=== PATIENT | female | born 1960 | race Caucasian/White ===

== ENCOUNTER → 2020-10-11 10:53 | Outpatient (BNVA) | payer MEDICARE, MEDICAID, SELFPAY | PROVIDERS: PCP Internal Medicine; Referring Provider Internal Medicine; Visit Provider Student in an Organized Health Care Education/Training Program | DX: Z13.89 Encounter for screening for other disorder (principal) | CPT/HCPCS: Q3014 ==

== ENCOUNTER 2021-02-07 11:03 | Emergency (ER) | payer OTHER, SELFPAY ==
--- NOTE | ~2021-02-07 | XR_ITS ---
EXAMINATION: XR ANKLE, LEFT CLINICAL INFORMATION: Pain and bruising. Twisting injury several days ago. COMPARISON: None TECHNIQUE: AP, lateral, and mortise views of the left ankle. FINDINGS: There is bimalleolar soft tissue swelling both medial and lateral sides. The posterior and medial malleolus appear intact and the ankle mortise is symmetric. There is small ossific fragment at tip lateral malleolus. Although margins appear corticated on the AP view this is not confirmed on the mortise view. Cortical avulsion cannot be excluded. Recommend correlation with patient's symptoms and clinical exam. The talar dome appears normal. The subtalar joint is unremarkable. XR/XR ankle LT min 3V IMPRESSION: 1. Avulsion tip lateral malleolus, possibly acute. Recommend correlation with patient's symptoms and clinical exam. 2. Posterior and medial malleoli are intact. Ankle mortise is symmetric.
[2021-02-07 11:12] VITALS: BP 105/55; PULSE 60; RESP 14; TEMP 37.1; O2SAT 96
--- NOTE | 2021-02-07 12:26 | ED.LOWEXIN ---
HPI - Extremity Injury (Lower) General Chief Complaint: Extremity Injury, Lower <NANCY Watkins - Last Filed: 02/11/21 14:24> Stated Complaint: lt ankle injury - fall <NANCY Watkins - Last Filed: 02/11/21 14:24> Time Seen by Provider: 02/07/21 12:26 <NANCY Watkins - Last Filed: 02/11/21 14:24> History of Present Illness HPI Narrative: Patient tripped and twisted left ankle 4 days ago complains of pain, no numbness weakness or tingling, no other injury <NANCY Watkins Last Filed: 02/11/21 14:24> Related Data Home Medications: Home Medications Medication Instructions Recorded Confirmed calcium carbonate-vitamin D3 600 1 tab PO DAILY 10/11/20 mg (1,500 mg)-800 unit tablet citalopram 20 mg tablet 20 mg PO DAILY 10/11/20 ibuprofen 200 mg tablet 200 mg PO Q6H PRN 10/11/20 lorazepam 1 mg tablet 1 mg PO BEDTIME PRN 10/11/20 magnesium oxide 400 mg PO DAILY 10/11/20 multivitamin 1 tab PO DAILY 10/11/20 lorazepam 0.5 mg tablet 0.5 mg PO BEDTIME PRN 02/15/21 Previous Rx's Medication Instructions Recorded diclofenac sodium 1 % topical gel 2 g TOPICAL BID #100 g 10/11/20 <NANCY Watkins - Last Filed: 02/11/21 14:24> Allergies/Adverse Reactions: Allergies Allergy/AdvReac Type Severity Reaction Status Date / Time No Known Allergies Allergy Verified 02/15/21 09:09 [No Known Allergies*] <NANCY Watkins - Last Filed: 02/11/21 14:24> Review of Systems Review of Systems: Positive for left ankle pain Negatives are no dizziness no weakness no headache no chest pain no fainting no abdominal pain no numbness weakness or tingling <NANCY Watkins Last Filed: 02/11/21 14:24> Yes all other systems are reviewed and are negative <NANCY Watkins Last Filed: 02/11/21 14:24> PMFSH Past Medical History Source: nursing notes reviewed <NANCY Watkins Last Filed: 02/11/21 14:24> Medical History: Medical History Polyarthralgia <NANCY Watkins - Last Filed: 02/11/21 14:24> Social History Social History: Social History (Updated 02/15/21 @ 09:11 by Donna Cunningham) Alcohol intake: never Current occupational status: employed 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 <NANCY Watkins - Last Filed: 02/11/21 14:24> Physical Exam Vital Signs: Vital Signs: Last Vital Signs Temp 98.7 F 02/07/21 11:12 Pulse 60 02/07/21 11:12 Resp 14 02/07/21 11:12 BP 105/55 L 02/07/21 11:12 Pulse Ox 96 02/07/21 11:12 Body Mass Index 0.2 <NANCY Watkins - Last Filed: 02/11/21 14:24> Vital Signs: Last Vital Signs Temp 98.7 F 02/07/21 11:12 Pulse 60 02/07/21 11:12 Resp 14 02/07/21 11:12 BP 105/55 L 02/07/21 11:12 Pulse Ox 96 02/07/21 11:12 Body Mass Index 0.2 <Leobardo Soto MD - Last Filed: 03/12/21 06:25> General appearance no acute distress Head is normocephalic atraumatic The neck is supple and nontender Respiratory no distress Back has full range of motion Extremities the left ankle has lateral malleolus tenderness swelling and some ecchymosis, there is l limited range of motion due to pain, neurovascular intact distal, skin is intact Other extremities normal Skin no rash Neuro no gross motor or sensory deficit <NANCY Watkins - Last Filed: 02/11/21 14:24> Course Course Course Narrative: X-ray showed avulsion from the tip of the lateral malleolus, no other fracture seen Patient is given a walking boot recommended to follow with Orthopedics and is discharged <NANCY Watkins - Last Filed: 02/11/21 14:24> I have reviewed the chart <Leobardo Soto MD - Last Filed: 03/12/21 06:25> Discharge Plan Discharge Clinical Impression: Left ankle sprain, Avulsion fracture of left ankle <NANCY Watkins - Last Filed: 02/11/21 14:24> Patient Disposition: Home, Self-Care <NANCY Watkins - Last Filed: 02/11/21 14:24> Additional Instructions: X-ray showed a small avulsion fracture which is not usually serious, it is usually similar to a sprained ankle Follow with orthopedist, walking as tolerated Return any concerns <NANCY Watkins - Last Filed: 02/11/21 14:24> Prescriptions: No Action lorazepam 1 mg tablet 1 mg PO BEDTIME PRNRF: 0 calcium carbonate-vitamin D3 [Caltrate with Vitamin D3] 600 mg(1,500mg) -800 unit tablet 1 tab PO DAILY RF: 0 citalopram 20 mg tablet 20 mg PO DAILY RF: 0 ibuprofen [Advil] 200 mg tablet 200 mg PO Q6H PRNRF: 0 multivitamin Tablet 1 tab PO DAILY RF: 0 magnesium oxide 400 mg magnesium tablet 400 mg PO DAILY RF: 0 diclofenac sodium [Voltaren] 1 % gel 2 g topical BID Qty: 100 RF: 2 <NANCY Watkins - Last Filed: 02/11/21 14:24> Referrals: Quique Jade MD [Physician] - 2 days (Ankle sprain and avulsion fracture) <NANCY Watkins - Last Filed: 02/11/21 14:24> Interventions: ED Discharge Assessment Last Done: 02/07/21 12:36 <NANCY Watkins - Last Filed: 02/11/21 14:24> Discharge Date/Time: 02/07/21 12:39 <NANCY Watkins - Last Filed: 02/11/21 14:24>
== END 2021-02-07 12:39 | disposition home or self-care (01) ==
PROVIDERS: Emergency Provider Emergency Medicine; PCP Internal Medicine
DX: S93.402A Sprain of unspecified ligament of left ankle, initial encounter (principal); S82.65XA Nondisplaced fracture of lateral malleolus of left fibula, initial encounter for closed fracture; X50.1XXA Overexertion from prolonged static or awkward postures, initial encounter; Y93.9 Activity, unspecified; Y92.9 Unspecified place or not applicable; Y99.9 Unspecified external cause status
CPT/HCPCS: 73610; 99283; 99284

== ENCOUNTER → 2021-02-15 08:59 | Outpatient (BNVA) | payer OTHER, SELFPAY | PROVIDERS: Visit Provider Physician Assistant | DX: S82.899A Other fracture of unspecified lower leg, initial encounter for closed fracture (principal) | CPT/HCPCS: 99202 ==

== ENCOUNTER 2021-02-15 10:23 | Outpatient (REF) | payer OTHER, SELFPAY ==
[2021-02-15 14:25] LABS: Rheumatoid Factor < 15.0 IU/mL (<15.0)
[2021-02-15 14:47] LABS: Erythrocyte Sedimentation Rate 8 MM/HR (0-20)
[2021-02-16 05:26] LABS: Lyme Abs Screen <0.90 index
[2021-02-16 08:23] LABS: Syphilis Screen Nonreactive (Nonreactive)
[2021-02-16 13:56] LABS: Anti Nuclear Antibody Screen NEGATIVE (NEGATIVE)
== END 2021-02-15 10:24 | disposition home or self-care (01) ==
LOC: HO.10HDL 10:23
PROVIDERS: Visit Provider Psychiatry & Neurology Neurology
DX: G93.40 Encephalopathy, unspecified (principal)
CPT/HCPCS: 36415; 85652; 86038; 86039; 86431; 86617; 86618; 86780

== ENCOUNTER 2021-05-08 11:00 | Outpatient (RCR) | payer OTHER, SELFPAY ==
--- NOTE | 2021-03-07 14:43 | MHC.PT.EP ---
[facility] [place] Office [place] Office [place] Office [address] [place] [address] [phone] F: [phone] F: [phone] F: [phone] F: [phone] Physical Therapy Plan of Care Date of Evaluation: Date of Surgery: Diagnosis: AVULSION FRACTURE LEFT LAT MALLEOLUS/ DISTAL FIBULA Assessment: 60 YO FEMALE SUSTAINED A LEFT DISTAL FIBULAR AVULSION FX 02/03/21 S/P FALLING ON THE EDGE OF A HOLE WHILE WALKING OUTDOORS- SHE INITIALLY WAS PLACED IN A LEFT CAM WALKING BOOT W WALKER AND WAS TRANSITIONED TO A LACE-UP ANKLE SUPPORT AND REF TO PT FROM ORTHO, FOR ROM AND PROPRIOCEPTION. Pt HAS LIMITED LEFT ANKLE / HIP ROM, (+) LAT MALL SWELLING, DECR STRENGTH, (+) PELVIC ASYMM, AND PAIN IN LEFT LAT MALL. FUNCTIONALLY, Pt HAS MODIFIED GAIT MECH DUE TO LEFT ANKLE DEFICITS ON LEVEL GROUND AND STAIRS- SHE HAS DIFFIC W HOUSECHORES AND PROLONGED STANDING AND SQUATTING. Pt IS A GOOD PT CANDIDATE. Frequency and Duration: The patient will be seen 2x WK x 5 WKS Short Term Goals: Pt DEMON WFL GAIT MECH ON LEVEL GROUND AND STAIRS IN 3 WKS Pt'S LEFT ANKLE PAIN DECR TO 2-3/10 IN 2 WKS Pt DEMON WFL AROM IN LEFT ANKLE AND RIGHT HIP/ HS-> WFL SYMMETRY IN PELVIS IN 3 WKS Electroplater Helper Goals: Pt INDEP W SELF-SX MGMT AND HEP PROGR IN 5 WKS Pt RESUME FITNESS WALKS AND REG ADLs EVIDENT W IMPROVED LEFT SCORE BY 10 POINTS (25/80 AT EVAL) IN 5 WKS Pt DEMON LEFT LE SLS x 10 SEC AND WFL FUNCT SQUAT TO THE FLOOR IN 5 WKS Treatment Plan: Modalities to reduce pain, spasms and effusion. Manual therapy to restore motion and function. Therapeutic exercise to improve strength and flexibility. Neuromuscular re-education for posture and balance. Therapeutic activities to return to functional activities of daily living. Electronically signed by: Medina Cabrera,PT Please sign and return to therapist. Thank you for your referral.
--- NOTE | 2021-07-25 09:46 | MHC.PT.DC ---
[facility] [place] Office [place] Office [place] Office [address] [place] [address] [facility] [phone] F: [phone] F: [phone] F: [phone] F: [phone] Physical Therapy Discharge Report Diagnosis: AVULSION FRACTURE LEFT LAT MALLEOLUS/ DISTAL FIBULA Date of Surgery: Date of Evaluation: 03/07/21 Date of Discharge: 05/26/21 Treatments to Date: 15 Cancellations to Date: 0 No Shows to Date: 0 Discharge Status: Discharge Summary: Pt ankle mobility WNL, c/o pain with resistance at end ranges. Pt I with HEP. LEFS 38/80. Pt DC with program Electronically signed by: Salvador Ospina PT Please sign and return to therapist. Thank you for your referral.
== END 2021-05-26 08:50 | disposition home or self-care (01) ==
LOC: HO.PTCHIC 11:00
PROVIDERS: PCP Internal Medicine; Visit Provider Physician Assistant
DX: S82.892A Other fracture of left lower leg, initial encounter for closed fracture (principal); S82.62XA Displaced fracture of lateral malleolus of left fibula, initial encounter for closed fracture
CPT/HCPCS: 97014; 97110; 97112; 97116; 97140; 97161

== ENCOUNTER → 2021-05-10 10:56 | Outpatient (BNVA) | payer OTHER, SELFPAY | PROVIDERS: PCP Internal Medicine; Visit Provider Student in an Organized Health Care Education/Training Program | DX: M79.641 Pain in right hand (principal); M79.642 Pain in left hand | CPT/HCPCS: 99212 ==

== ENCOUNTER 2021-07-14 08:02 | Outpatient (REF) | payer OTHER, SELFPAY ==
[2021-07-14 08:20] LABS: MANUAL DIFF FLAG NO
[2021-07-14 08:54] LABS: Basophils Absolute Auto 0.1 X10*3/uL (0.0-0.2); Basophils Percent Auto 0.7 % (0-2); Eosinophils Absolute Auto 0.2 X10*3/uL (0.0-0.4); Eosinophils Percent Auto 2.4 % (0-4); Hematocrit 43.8 % (37-47); Imm Gran Abs Auto 0.02 X10*3/uL (0.00-0.03); Imm Gran Pct Auto 0.3 % (0.0-0.4); Lymphocytes Absolute Auto 3.2 X10*3/uL (1.2-4.9); Lymphocytes Percent Auto 42.7 % (20-40); Mean Corpuscular Hemoglobin 26.9 pg (27.0-33.0); Mean Corpuscular Volume 84.1 fL (80-98); Mean Platelet Volume 10.3 fL (9.4-12.3); Monocytes Absolute Auto 0.6 X10*3/uL (0.1-1.2); Monocytes Percent Auto 7.4 % (2-11); Neutrophils Absolute Auto 3.5 X10*3/uL (2.0-8.3); Neutrophils Percent Auto 46.5 % (45-73); Platelet Count 217 X10*3/uL (160-400); Red Blood Count 5.21 X10*6/uL (4.20-5.50); Red Cell Distribution Width 13.5 % (11.0-16.0); White Blood Count 7.6 X10*3/uL (4.8-10.8)
[2021-07-14 09:15] LABS: Alanine Aminotransferase 22 U/L (0-31); Albumin Level 4.1 g/dL (3.5-5.0); Alkaline Phosphatase 74 U/L (39-117); Anion Gap 13 (12-20); Aspartate Amino Transferase 21 U/L (5-31); Blood Urea Nitrogen 21 mg/dL (9-16); Calcium 9.7 mg/dL (8.4-10.2); Carbon Dioxide 26 mmol/L (22-29); Chloride 107 mmol/L (96-108); Cholesterol 219 mg/dL; Estimated Glomerular Filt Rate 46; Glucose Fasting 107 mg/dL (60-99); HDL Cholesterol 42 mg/dL; LDL Cholesterol Calculated 134 mg/dl; Potassium 4.6 mmol/L (3.3-5.1); Sodium 141 mmol/L (135-145); Total Protein 7.2 g/dL (6.5-8.0); Triglycerides 216 mg/dL
[2021-07-14 09:36] LABS: Thyroid Stimulating Hormone 0.76 uIU/mL (0.32-4.0)
== END 2021-07-14 08:03 | disposition home or self-care (01) ==
LOC: HO.LAB 08:02
PROVIDERS: PCP Internal Medicine; Visit Provider Internal Medicine
DX: Z00.00 Encounter for general adult medical examination without abnormal findings (principal); E11.9 Type 2 diabetes mellitus without complications; E03.9 Hypothyroidism, unspecified
CPT/HCPCS: 36415; 80053; 80061; 84443; 85025

== ENCOUNTER 2022-01-11 13:37 | Outpatient (REF) | payer OTHER, SELFPAY ==
--- NOTE | ~2022-01-11 | MM_ITS ---
EXAMINATION: MM SCREENING DIGITAL BREAST TOMOSYNTHESIS, BILATERAL CLINICAL INFORMATION: Screening. Asymptomatic. The lifetime risk of breast cancer based on the Tyrer-Cuzick Model is 6%. COMPARISON: Mammography: 07/02/2019, 06/19/2018, 02/28/2017 TECHNIQUE: Digital breast tomosynthesis is performed in both the craniocaudal and mediolateral oblique views along with computer-aided detection (CAD). Synthesized 2D images are generated from the tomosynthesis. Additional right CC view is provided. FINDINGS: There are scattered areas of fibroglandular density (ACR BI-RADS breast composition Category b). There are no significant masses, abnormal calcifications, or other abnormalities. No developing density. There are 2 stable nodules right breast posterior 12:00 and posterior upper outer quadrant, respectively. The axilla are unremarkable. There is small dermal lesion posterior inferior right breast. MM/MM tomosynthesis screening BI IMPRESSION: No mammographic evidence of malignancy. ASSESSMENT: BI-RADS 2: Benign RECOMMENDATION: Routine annual mammography screening. This patient's information was entered into a reminder system with a target due date for their next mammogram.
== END 2022-01-11 13:38 | disposition home or self-care (01) ==
LOC: HO.MAMMO 13:37
PROVIDERS: Visit Provider Internal Medicine
DX: Z12.31 Encounter for screening mammogram for malignant neoplasm of breast (principal)
CPT/HCPCS: 77063; 77067

== ENCOUNTER 2022-03-29 11:48 | Outpatient (REF) | payer OTHER, SELFPAY ==
--- NOTE | ~2022-03-29 | XR_ITS ---
EXAMINATION: XR STERNOCLAVICULAR JOINTS CLINICAL INFORMATION: Pain shoulder COMPARISON: Chest radiographs 10/10/2015 TECHNIQUE: AP and oblique views of the sternoclavicular joints. FINDINGS: There is normal bony mineralization. No visible arthropathy on plain film involving the sternoclavicular joints. No subchondral sclerosis or cortical thickening or erosive change. The lung apices are clear. XR/XR sternoclavicular joint BI IMPRESSION: Unremarkable bilateral sternoclavicular joints on plain film.
--- NOTE | ~2022-03-29 | XR_ITS ---
EXAMINATION: XR LUMBOSACRAL SPINE CLINICAL INFORMATION: M54.50 - Low back pain, unspecified COMPARISON: Lumbar spine radiographs 01/18/2012 TECHNIQUE: Three views of the lumbosacral spine. FINDINGS: There is normal lumbar segmentation with 5 nonrib-bearing lumbar vertebrae of normal height and normal lumbar lordosis. No lumbar vertebral compression or destructive process. There is mild disc narrowing and facet degeneration L4-L5. There is a borderline grade 0-1 spondylolisthesis at L4-L5 likely related to the degenerative changes. The SI joints and visualized sacrum are unremarkable. XR/XR lumbar spine 2-3V IMPRESSION: -Degenerative disc and degenerative facet changes L4-L5 with borderline grade 0-1 spondylolisthesis. -No vertebral compression or destructive process.
[2022-03-29 12:00] LABS: MANUAL DIFF FLAG NO
[2022-03-29 12:08] LABS: Basophils Absolute Auto 0.1 X10*3/uL (0.0-0.2); Basophils Percent Auto 0.6 % (0-2); Eosinophils Absolute Auto 0.2 X10*3/uL (0.0-0.4); Eosinophils Percent Auto 1.8 % (0-4); Hemoglobin 13.7 g/dl (12.0-16.0); Imm Gran Abs Auto 0.02 X10*3/uL (0.00-0.03); Imm Gran Pct Auto 0.2 % (0.0-0.4); Lymphocytes Absolute Auto 3.3 X10*3/uL (1.2-4.9); Lymphocytes Percent Auto 39.2 % (20-40); Mean Corpuscular HGB Conc 31.9 g/dl (31.0-35.0); Mean Corpuscular Volume 84.8 fL (80.0-98.0); Mean Platelet Volume 9.7 fL (9.4-12.3); Monocytes Absolute Auto 0.7 X10*3/uL (0.1-1.2); Monocytes Percent Auto 7.8 % (2-11); Neutrophils Absolute Auto 4.3 x10*3/uL (2.0-8.3); Neutrophils Percent Auto 50.4 % (45-73); Platelet Count 213 X10*3/uL (160-400); Red Blood Count 5.07 X10*6/uL (4.20-5.50); Red Cell Distribution Width 13.9 % (11.0-16.0); White Blood Count 8.5 X10*3/uL (4.8-10.8)
[2022-03-29 13:06] LABS: Erythrocyte Sedimentation Rate 6 MM/HR (0-20)
[2022-03-29 13:18] LABS: Alanine Aminotransferase 21 U/L (0-31); Albumin Level 4.2 g/dL (3.5-5.0); Alkaline Phosphatase 70 U/L (39-117); Anion Gap 9 (12-20); Aspartate Amino Transferase 21 U/L (5-31); Bilirubin Total 1.2 mg/dL (0.0-1.0); Blood Urea Nitrogen 18 mg/dL (9-16); C Reactive Protein 0.46 mg/dL (< or = 0.50); Calcium 9.9 mg/dL (8.4-10.2); Carbon Dioxide 28 mmol/L (22-29); Chloride 108 mmol/L (96-108); Estimated Glomerular Filt Rate 47; Glucose Random 92 mg/dL (60-115); Potassium 4.1 mmol/L (3.3-5.1); Sodium 141 mmol/L (135-145); Total Protein 7.2 g/dL (6.5-8.0)
[2022-04-01 15:46] LABS: Cyclic Citrullinated Peptide <16 UNITS
== END 2022-03-29 11:49 | disposition home or self-care (01) ==
LOC: HO.LAB 11:48
PROVIDERS: PCP Internal Medicine; Visit Provider Nurse Practitioner Family
DX: M54.50 Low back pain, unspecified (principal); M19.90 Unspecified osteoarthritis, unspecified site; M25.512 Pain in left shoulder; Z79.899 Other long term (current) drug therapy
CPT/HCPCS: 36415; 71130; 72100; 80053; 85025; 85652; 86140; 86200; 99212

== ENCOUNTER 2022-09-13 11:00 | Outpatient (RCR) | payer OTHER, SELFPAY ==
--- NOTE | 2022-08-09 14:00 | MHC.PT.EP ---
[facility] [place] Office [place] Office [place] Office [address] [place] [address] [phone] F: [phone] F: [phone] F: [phone] F: [phone] Physical Therapy Plan of Care Date of Evaluation: Date of Surgery: NA Diagnosis: Dorsalgia Assessment: Esther is a 62 year old female who is referred to PT for dorsalgia . She presented today with complaints of LBP. She reports of having pain for over 10 years however it has been getting worse. She denies having any falls or trauma. On PT examination she reported of having constant pain which gets worse with sitting, standing and walking, TTP over B SI and B glute, decreased lumbar ROM, decreased B hip ROM, decreased strength, altered posture, and gait. Due to these impairments she has pain with ADLS and needs help with cleaning, cooking, bending and lifting. 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 She would benefit from skilled PT to address the aforementioned impairments and improve tolerance to functional activities. Frequency and Duration: The patient will be seen 2/week for 5 weeks Short Term Goals: 1. Pt will have 50 % decrease in pain which will help her sleep through the night in 2 weeks. 2. Pt will be able to move trunk through all planes of motion without pain which will help her dress her lower body without pain in 3 weeks Relay Record Clerk Goals: 1. Pt will demonstrate an increase in muscle strength by 1 grade which will enable her to tolerate sitting, standing >1 and walking without pain in 5 weeks. 2. Pt will be independent with [facility] for symptom management and maintenance following d/c in 5 weeks. Treatment Plan: Modalities to reduce pain, spasms and effusion. Manual therapy to restore motion and function. Therapeutic exercise to improve strength and flexibility. Neuromuscular re-education for posture and balance. Therapeutic activities to return to functional activities of daily living. Electronically signed by: Shy Samano PT DPT Please sign and return to therapist. Thank you for your referral.
--- NOTE | 2022-10-15 10:50 | MHC.PT.DC ---
[facility] [place] Office [place] Office [place] Office [address] [place] [address] [phone] F: [phone] F: [phone] F: [phone] F: [phone] Physical Therapy Discharge Report Diagnosis: Dorsalgia Date of Surgery: NA Date of Evaluation: 08/09/22 Date of Discharge: 10/15/22 Treatments to Date: 9 Cancellations to Date: 0 No Shows to Date: 0 Discharge Status: Achieved Goals Improved Function Independent with HEP Discharge Summary: Esther completed 9 PT visits and made significant improvements. She is independent with all HEP and achieved all goals set for her. She is therefore being d/c from PT. Electronically signed by: Shy Samano, PT DPT Please sign and return to therapist. Thank you for your referral.
== END 2022-10-15 10:51 | disposition home or self-care (01) ==
LOC: HO.PT 11:00
PROVIDERS: PCP Internal Medicine; Visit Provider Internal Medicine
DX: M54.9 Dorsalgia, unspecified (principal)
CPT/HCPCS: 97110; 97112; 97140; 97161

== ENCOUNTER 2023-01-17 10:18 | Outpatient (REF) | payer OTHER, SELFPAY ==
--- NOTE | ~2023-01-17 | MM_ITS ---
EXAMINATION: MM SCREENING DIGITAL BREAST TOMOSYNTHESIS, BILATERAL CLINICAL INFORMATION: Screening. Asymptomatic. The lifetime risk of breast cancer based on the Tyrer-Cuzick Model is 5.4%. COMPARISON: Mammography: January 11, 2022 and studies dating back to November 24, 2015 TECHNIQUE: Digital breast tomosynthesis is performed in both the craniocaudal and mediolateral oblique views along with computer-aided detection (CAD). Synthesized 2D images are generated from the tomosynthesis. FINDINGS: There are scattered areas of fibroglandular density (ACR BI-RADS breast composition Category b). There are no significant masses, abnormal calcifications, or other abnormalities. MM/MM tomosynthesis screening BI IMPRESSION: No significant changes from prior exam. ASSESSMENT: BI-RADS 1: Negative RECOMMENDATION: Routine annual mammography screening. This patient's information was entered into a reminder system with a target due date for their next mammogram.
== END 2023-01-17 10:19 | disposition home or self-care (01) ==
LOC: HO.MAMMO 10:18
PROVIDERS: PCP Internal Medicine; Visit Provider Internal Medicine
DX: Z12.31 Encounter for screening mammogram for malignant neoplasm of breast (principal)
CPT/HCPCS: 77063; 77067

== ENCOUNTER 2023-02-21 09:54 | Day surgery (SDC) | payer OTHER, SELFPAY ==
--- NOTE | 2023-02-20 14:30 | HO.ANESPROP2 ---
HPI - Anesthesia Eval Consult details Narrative: 62yo F for Upper Endoscopy and Colonoscopy [facility] Active Problems Active Problems: All Active Problems (Updated 02/20/23 @ 13:12 by Dottie Ngo RN) Right lateral epicondylitis (Acute) Avulsion fracture of ankle (Acute) Lateral malleolar fracture (Acute) Bilateral hand pain (Acute) Physical exam (Acute) Back pain (Acute) Cough (Acute) Fibromyalgia (Acute) Polyarthralgia (Acute) Past Medical History Medical History (Updated 02/20/23 @ 13:12 by Dottie Ngo RN) Anxiety White esophagus Depression GERD (gastroesophageal reflux disease) IBS (irritable bowel syndrome) Polyarthralgia Family History Family History Mother No problems noted. Father No problems noted. 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: No Hearing needs: No Vision needs: Yes Meds Allergies Allergy/AdvReac Type Severity Reaction Status Date / Time No Known Allergies Allergy Verified 02/26/23 14:48 [No Known Allergies*] Home Medications Medication Instructions Recorded Confirmed Last Taken Type calcium carbonate 600 mg-vitamin 1 tab PO DAILY 10/11/20 02/21/23 Unknown History D3 20 mcg (800 unit) tablet (Caltrate with Vitamin D3) lorazepam 1 mg tablet 1 mg PO BEDTIME PRN Sleep 10/11/20 02/21/23 Unknown History magnesium oxide 400 mg PO DAILY 10/11/20 02/21/23 Unknown History multivitamin 1 tab PO DAILY 10/11/20 02/21/23 Unknown History dicyclomine 10 mg capsule 10 - 20 mg PO QID PRN cramps 07/11/21 02/21/23 Unknown History duloxetine 20 mg capsule,delayed 20 mg PO BID 08/23/22 02/21/23 Unknown History release duloxetine 60 mg capsule,delayed 60 mg PO DAILY 02/26/23 Unknown History release Exam Exam Date and Time: February 20, 2023 143 Assessment and Plan Assessment Anesthesia Assessment: Chart Reviewed
[2023-02-21] VITALS (9 sets, daily range): BP systolic 107–129; BP diastolic 46–63; PULSE 40–55; RESP 14–18; TEMP 35.9–36.8; O2SAT 97–100; BMI 25.0
[2023-02-21] MEDS: Lactated Ringers 1,000 ML 100 ML IVCONT (10:39)
--- NOTE | 2023-02-21 12:28 | P.BOP_ITS ---
Brief Operative Note Date of Service: 02/21/23 Pre-op diagnosis: White's, Screening Post-op diagnosis: other (Hiatal hernia, Polyps) Procedure: EGD with biopsies, Colonoscopy to the cecum and TI with cold snare polypectomy of TC polyp but not recovered ,and bx/removal of polyp Surgeon: Remberto Marte Anesthesia: MAC Was an Telephone Lines Repairer used for this Procedure?: No Estimated blood loss (mL): 2.0 Pathology: other (A. EG Junction at 35cm B. Polyp at 60cm) Condition: stable Disposition: PACU
--- NOTE | 2023-02-21 12:58 | OP_ITS ---
DATE OF SERVICE: 02/21/2023 SURGEON: Remberto Marte MD INDICATIONS: The patient presents for evaluation of gastroesophageal reflux, White's esophagus, personal history of tubular adenoma of the colon, and colorectal cancer screening. Full consent has been obtained from her for both procedures, including risks of bleeding and perforation. PREOPERATIVE DIAGNOSIS: POSTOPERATIVE DIAGNOSIS: PROCEDURE PERFORMED: ESTIMATED BLOOD LOSS: COMPLICATIONS: ANESTHESIA: Monitored anesthesia care. ASSISTANTS: SPECIMENS: PROCEDURE: Esophagogastroduodenoscopy with biopsies, and colonoscopy to the cecum and terminal ileum with biopsy and removal of polyp, and cold snare polypectomy. PREOPERATIVE DIAGNOSES: Gastroesophageal reflux, White's esophagus, personal history of tubular adenoma of the colon. POSTOPERATIVE DIAGNOSES: Gastroesophageal reflux, White's esophagus, personal history of tubular adenoma of the colon, hiatal hernia, colon polyps, diverticulosis, and internal hemorrhoids. DESCRIPTION OF PROCEDURE: The patient was placed in the left lateral decubitus position. The Olympus video gastroscope was passed in the posterior oropharynx and upper esophagus under direct vision. The scope was passed slowly to the distal esophagus. The gastroesophageal junction appeared at 35 cm. There was some minimal areas of irregularity, consistent with reflux and possibly small areas of White's mucosa. There was no esophagitis nor any lesions. The scope entered the stomach. There was a small hiatal hernia. The scope was advanced to the pylorus and the duodenum was cannulated to the descending portion. The duodenum including the bulb appeared normal without mass or ulceration. The scope was withdrawn back in the stomach. The gastric antrum and body appeared normal with good peristalsis. The scope was retroflexed visualizing the proximal stomach carefully which appeared normal, without any sign of mass or ulceration. The scope was straightened and withdrawn back to the esophagus. Biopsies were obtained at the EG junction at 35 cm. Proximal to this, the esophageal mucosa appeared normal. The scope was withdrawn from the patient. She was turned around for colonoscopy. The digital rectal exam revealed no abnormalities. The Olympus video pediatric colonoscope was entered into the rectum, advanced easily to the cecum. Once in the cecum, I did identify normal-appearing cecal pouch with appendiceal orifice and a normal-appearing ileocecal valve. The terminal ileum was cannulated and appeared normal. The scope was withdrawn back in the colon. The entire cecum and ileocecal valve appeared normal. The scope was then slowly withdrawn assessing all mucosal surfaces carefully. Preparation was excellent. In the proximal transverse colon was an approximately 5 or 6 mm polyp, which was removed by cold snare polypectomy, but not recovered. The polypectomy site appeared to be free of any residual polyp tissue and without any significant bleeding. At 60 cm, there was an approximately 3 or 4 mm polyp, which was biopsied and completely removed with the cold biopsy forceps. I did not visualize any other polyps, colitis, or angiodysplasia. There was a mild amount of sigmoid diverticulosis. In the rectum, scope was retroflexed visualizing internal hemorrhoids, but no other pathology. The rectal mucosa appeared normal. Scope was straightened and withdrawn from the patient. She tolerated the procedure well and was returned to recovery area in stable condition. IMPRESSION: 1. Hiatal hernia, gastroesophageal reflux, history of White's esophagus. 2. Colon polyps. 3. Diverticulosis. 4. Internal hemorrhoids. PLAN: The results of the biopsies will be checked. She was advised to have a repeat upper endoscopy and colonoscopy in 5 years for further screening and surveillance given the minimal findings of each procedure. She was advised not to use any aspirin or NSAIDs for 1 week. She was advised to continue her omeprazole for symptomatic relief of reflux, as well as to continue Metamucil to help keep her bowel movements more regular and cut down on abdominal bloating. She was advised not to use any aspirin and NSAIDs for 1 week. If things are well, she will see me otherwise on a p.r.n. basis. MD CLAUDIA Starks/KEKE / [id number] LUIGI
--- NOTE | 2023-02-21 14:14 | PC.NURSE ---
Dr. Owens and Dr. Whitley both assessed patient. Both cleared patient to be discharged at this time
== END 2023-02-21 14:30 | disposition home or self-care (01) ==
PROVIDERS: PCP Internal Medicine; Visit Provider Internal Medicine
PROC: (CPT 45385; principal; 2023-02-21 11:00)
DX: Z12.11 Encounter for screening for malignant neoplasm of colon (principal); Z86.010 Personal history of colon polyps; D12.4 Benign neoplasm of descending colon; K63.5 Polyp of colon; K64.8 Other hemorrhoids; K57.30 Diverticulosis of large intestine without perforation or abscess without bleeding; K58.1 Irritable bowel syndrome with constipation; K22.70 Barrett's esophagus without dysplasia; K21.9 Gastro-esophageal reflux disease without esophagitis; K44.9 Diaphragmatic hernia without obstruction or gangrene; F32.A Depression, unspecified; F41.1 Generalized anxiety disorder; Z79.899 Other long term (current) drug therapy
CPT/HCPCS: 45385; 45380; 43239; 88305; J2250

== ENCOUNTER 2023-03-08 09:39 | Outpatient (REF) | payer OTHER, SELFPAY ==
[2023-03-08 09:48] LABS: MANUAL DIFF FLAG NO
[2023-03-08 10:14] LABS: Basophils Absolute Auto 0.1 X10*3/uL (0.0-0.2); Eosinophils Absolute Auto 0.1 X10*3/uL (0.0-0.4); Eosinophils Percent Auto 1.7 % (0-4); Hematocrit 44.2 % (37.0-47.0); Imm Gran Abs Auto 0.01 X10*3/uL (0.00-0.03); Imm Gran Pct Auto 0.1 % (0.0-0.4); Lymphocytes Absolute Auto 3.2 X10*3/uL (1.2-4.9); Lymphocytes Percent Auto 44.2 % (20-40); Mean Corpuscular HGB Conc 31.7 g/dl (31.0-35.0); Mean Corpuscular Hemoglobin 26.2 pg (27.0-33.0); Mean Corpuscular Volume 82.6 fL (80.0-98.0); Mean Platelet Volume 9.7 fL (9.4-12.3); Monocytes Absolute Auto 0.4 X10*3/uL (0.1-1.2); Monocytes Percent Auto 5.9 % (2-11); Neutrophils Absolute Auto 3.4 x10*3/uL (2.0-8.3); Neutrophils Percent Auto 47.1 % (45-73); Platelet Count 216 X10*3/uL (160-400); Red Blood Count 5.35 X10*6/uL (4.20-5.50); White Blood Count 7.2 X10*3/uL (4.8-10.8)
[2023-03-08 10:36] LABS: Alanine Aminotransferase 20 U/L (0-31); Alkaline Phosphatase 82 U/L (39-117); Anion Gap 12 (12-20); Aspartate Amino Transferase 17 U/L (5-31); Bilirubin Total 0.6 mg/dL (0.0-1.0); Blood Urea Nitrogen 15 mg/dL (9-16); Calcium 9.7 mg/dL (8.4-10.2); Carbon Dioxide 25 mmol/L (22-29); Chloride 112 mmol/L (96-108); Cholesterol 205 mg/dL; Estimated Glomerular Filt Rate 45; Glucose Fasting 106 mg/dL (60-99); HDL Cholesterol 42 mg/dL; LDL Cholesterol Calculated 128 mg/dl; Potassium 4.7 mmol/L (3.3-5.1); Sodium 144 mmol/L (135-145); Total Protein 6.9 g/dL (6.5-8.0); Triglycerides 178 mg/dL
[2023-03-08 10:58] LABS: Erythrocyte Sedimentation Rate 7 MM/HR (0-20)
[2023-03-08 11:04] LABS: Folate 9.4 ng/mL (> or = 4.0); Thyroid Stimulating Hormone 0.61 uIU/mL (0.32-4.0); Vitamin B12 1142 pg/mL (200-900)
== END 2023-03-08 09:40 | disposition home or self-care (01) ==
LOC: HO.LAB 09:39
PROVIDERS: PCP Internal Medicine; Visit Provider Internal Medicine
DX: R41.3 Other amnesia (principal); E78.5 Hyperlipidemia, unspecified; N28.9 Disorder of kidney and ureter, unspecified; E03.9 Hypothyroidism, unspecified; D64.9 Anemia, unspecified
CPT/HCPCS: 36415; 80053; 80061; 82607; 82746; 84443; 85025; 85652

== ENCOUNTER 2023-06-06 14:27 | Outpatient (REF) | payer OTHER, SELFPAY ==
--- NOTE | ~2023-06-06 | MR_ITS ---
EXAMINATION: MR BRAIN WITHOUT AND WITH CONTRAST CLINICAL INFORMATION: Encephalopathy COMPARISON: None TECHNIQUE: Multiplanar multisequence MR imaging of the brain was obtained without and following the administration of 7 mL Gadavist intravenous contrast. FINDINGS: There is no acute infarct on diffusion-weighted imaging. There is no intracranial hemorrhage on iron-sensitive imaging. No extra-axial collection or mass effect/herniation. Normal parenchymal signal characteristics. No hydrocephalus. The ventricles are normal in morphology and size. No abnormal parenchymal or extra-axial enhancement. The major flow voids at the skull base are preserved. The midline structures are normal. The cerebellar tonsils are normally positioned. The craniocervical junction is normal. Marrow signal is within normal limits. The visualized soft tissues are without significant abnormality. Right maxillary sinus retention cyst. MR/MR head/brain wo/w con IMPRESSION: Unremarkable contrast enhanced MRI of the brain.
[2023-06-06] MEDS: gadobutroL 7.5 ML VIAL IVPUSH (15:24)
== END 2023-06-06 14:28 | disposition home or self-care (01) ==
LOC: HO.MRI 14:27
PROVIDERS: PCP Internal Medicine; Visit Provider Psychiatry & Neurology Neurology
DX: G93.40 Encephalopathy, unspecified (principal)
CPT/HCPCS: 70553; A9585

== ENCOUNTER 2023-07-23 08:31 | Outpatient (AMB) | payer OTHER, SELFPAY ==
--- NOTE | 2023-07-23 08:39 | MHC.OFFVIS ---
Intake Vital Signs 07/23/23 08:41 Height 5 ft 5 in Weight 153 lb 2 oz BMI 25.5 BP 122/60 Blood Pressure Location Lt brachial Position Sitting Intake Visit Reasons: Annual Allergies No Known Allergies [No Known Allergies*] Allergy (Verified 07/23/23 08:42) Is last menstrual period known: Yes (age 44) HPI HPI Comments History of Present Illness Details Presenting for annual exam. Complaining of left breast dark lesion growing in size over the last few Last Pap/HPV was in 11/21 was negative Last Mammogram was BI-RADS 1 in 01/26 Last Colonoscopy was done in 02/25, the recommendation was to repeat in 5 [facility] Medical History Anxiety IBS (irritable bowel syndrome) Depression White esophagus GERD (gastroesophageal reflux disease) Polyarthralgia Surgical History H/O esophagogastroduodenoscopy H/O colonoscopy History of tonsillectomy History of unilateral oophorectomy Family History Mother No problems noted. Father No problems noted. 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: No Hearing needs: No Vision needs: Yes Female Reproductive History Menstrual Total pregnancies: 0 Date of last pap smear: 07/27/03 (unknown date pt states 10 yrs ago) Review of Systems Const All systems reviewed & are unremarkable except as noted in HPI and below Card Reports as per HPI Resp Reports as per HPI GI Reports as per HPI and Reports no additional complaints Reports as per HPI Physical Exam Vital Signs: Last Vital Signs BP 122/60 07/23/23 08:41 BMI result Body Mass Index 25.5 Const General: cooperative, healthy appearing and comfortable Chest Chest palpation & inspection: normal palpation of entire chest wall and other (Left breast 0.5 cm dark lesion) Breast/axilla inspection: normal inspection of the breasts and normal inspection of the axillae Breast/axilla palpation: normal palpation of the breasts, normal palpation of the axillae and no axillary lymphadenopathy Resp Effort & Inspection: normal respiratory effort Auscultation: clear to auscultation bilaterally Percussion: percussion normal Cardio Palpation: normal PMI Rate: regular rate Rhythm: regular rhythm Heart sounds: no murmurs and no rubs Peripheral pulses: Peripheral pulses 2+ throughout GI Inspection: Yes normal to inspection Palpation (GI): Soft to palpation, nontender, no guarding, not rigid and No hepatosplenomegaly present Percussion: Yes normal to percussion Auscultation: normal bowel sounds Rectal Exam - Female: deferred General: Yes bladder normal to palpation External Female Exam: No lesion Speculum Exam - Vagina: normal appearance of the vagina, normal palpation, normal vaginal discharge and not erythematous Speculum Exam - Cervix: normal appearance of the cervix and normal palpation Bimanual exam- vagina & uterus: normal bimanual exam, normal palpation, uterine size normal, bladder normal to palpation, consistency normal and normal palpation Bimanual Exam- Adnexa, other: normal adnexae, no masses and no tenderness Assessment & Plan Assessment & Plan (1) Well woman exam: Code(s): Z01.419 - Encounter for gynecological examination (general) (routine) without abnormal findings Plan: Co testing done. Counseled the patient about the recommended dietary allowance of 1200 mg of Calcium & 600 IU of vitamin D. Instructions given the patient to schedule next screening Mammogram in 01/27. The patient was instructed to perform monthly self-breast exams and schedule annual exam in a year. All questions answered and the patient verbalized understanding. (2) Skin lesion of breast: Comment: Left breast Code(s): L98.8 - Other specified disorders of the skin and subcutaneous tissue Plan: Discussed the patient the finding on physical exam left breast dark lesion growing in size, recommended excision. Instructions given the patient to schedule an appointment for left breast lesion excision. All questions answered, the patient verbalized understanding Coding Level of Care Code New Pt Prev Care 40-64y(67833) Diagnoses Well woman exam Z01.419 Skin lesion of breast L98.8
[2023-07-23 08:41] VITALS: BP 122/60; BMI 25.5
== END 2023-07-23 09:04 | disposition home or self-care (01) ==
PROVIDERS: PCP Internal Medicine; Visit Provider Obstetrics & Gynecology
DX: Z01.419 Encounter for gynecological examination (general) (routine) without abnormal findings (principal); L98.8 Other specified disorders of the skin and subcutaneous tissue
CPT/HCPCS: 99386

== ENCOUNTER 2023-07-23 08:31 | Outpatient (REF) | payer OTHER, SELFPAY ==
[2023-07-24 23:43] LABS: HPV mRNA E6/E7 rflx Not Detected (Not Detected)
== END 2023-07-23 08:32 | disposition home or self-care (01) ==
LOC: HO.LNP 08:31
PROVIDERS: PCP Internal Medicine; Visit Provider Obstetrics & Gynecology
DX: Z01.419 Encounter for gynecological examination (general) (routine) without abnormal findings (principal); N64.89 Other specified disorders of breast
CPT/HCPCS: 87624; 88142

== ENCOUNTER 2023-09-05 09:52 | Outpatient (AMB) | payer OTHER, SELFPAY ==
--- NOTE | 2023-09-05 09:55 | MHC.PC.OV ---
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 per policy Accompanied by: Self / Same As Patient Allergies No Known Allergies [No Known Allergies*] Allergy (Verified 09/05/23 09:56) Medication List - Last Reconciled 09/05/23 by Ronak Rico MD calcium carbonate-vitamin D3 600 mg-20 mcg (800 unit) (Caltrate with Vitamin D3) 1 tab PO DAILY clindamycin phosphate 1% 1 appl topical DAILY dicyclomine 10 mg PO BID PRN duloxetine 60 mg PO DAILY hydrocortisone 2.5% 1 appl topical BID melatonin 3 mg PO BEDTIME multivitamin 1 tab PO DAILY triamcinolone acetonide 0.1% 1 appl topical BID Tobacco use date assessed: 02/26/23 Fall risk assessment: No Falls in past year Last assessed Fall Risk: 09/05/23 Dental Screening Dental Screen Date: 09/05/23 Did you have a dental visit in the last 12 months?: Yes Did you have a dental problem in the last 6 months where you did not have access to dental care?: No Was dental information given to patient?: Patient has dentist HPI Annual Exam HPI Details chronic anxiety; otherwise healthy [facility] Medical History Anxiety IBS (irritable bowel syndrome) Depression White esophagus GERD (gastroesophageal reflux disease) Polyarthralgia Surgical History H/O esophagogastroduodenoscopy H/O colonoscopy History of tonsillectomy History of unilateral oophorectomy Family History Mother No problems noted. Father No problems noted. 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 Remberto Miles, Nargis Gilmore, Mark Zelaya and colleagues, with an educational odalys from [employer]. Review of Systems Const Denies chills, Denies fatigue, Denies headache(s) and Denies weight loss Eyes Denies change in vision, Denies diplopia and Denies eye pain ENT Denies vertigo, Denies dizziness, Denies headache(s) and Denies nasal discharge Card Denies chest pain, Denies rapid heart rate and Denies dyspnea on exertion Resp Denies chest congestion, Denies cough, Denies pain with cough and Denies dyspnea on exertion GI Denies abdominal pain, Denies hematochezia and Denies change in bowel habits Musc Denies myalgias, Denies arthralgias and Denies joint swelling Skin/Breast Denies lesions and Denies unusual bruising Neuro Denies vertigo, Denies dizziness, Denies headache(s) and Denies focal weakness Endo Denies fatigue Physical exam (Primary Care) Vital Signs: Last Vital Signs Pulse 87 09/05/23 09:56 BP 102/62 09/05/23 09:56 Pulse Ox 97 09/05/23 09:56 Oxygen Delivery Method Room Air 09/05/23 09:56 BMI result Body Mass Index 25.4 Tobacco/Smoking Status: Tobacco use Status Tobacco use date assessed 02/26/23 09/05/23 10:03 Patient Tobacco Use Status Former Tobacco user 09/05/23 10:03 e-Cigarette/Vaping Use Never Used 09/05/23 10:03 Thrive Assessment: Date of Thrive Assessment Date Thrive assessed 02/26/23 09/05/23 10:03 Const General: cooperative, healthy appearing and no acute distress Orientation/consciousness: oriented to person, oriented to place and oriented to time HENMT Head: Yes normal to inspection, Yes normocephalic and Yes atraumatic Mouth: Normal oral and palatal mucosa present and tongue normal Throat: Yes posterior oropharynx normal and Yes uvula midline Eyes General: appearance normal, both eyes and all related structures Neck Neck: Yes normal visual inspection, Yes full ROM and Yes no lymphadenopathy Thyroid: Thyroid normal Carotids: normal carotid upstroke Chest Chest palpation & inspection: normal inspection of the chest Resp Effort & Inspection: normal respiratory effort and able to speak in complete sentences Auscultation: clear to auscultation bilaterally Cardio Jugular venous distension: no JVD Palpation: normal PMI Rate: regular rate Rhythm: regular rhythm Heart sounds: S1 normal heart sound present and S2 normal heart sound present GI Inspection: Yes normal to inspection Palpation (GI): Soft to palpation and No hepatosplenomegaly present Auscultation: normal bowel sounds General: Yes no CVA tenderness Back/Spine/Pelvis Back: no CVA tenderness Skin General skin exam: no rashes or lesions noted Neuro General: oriented to person, oriented to place and oriented to time Extrem General: Yes normal to inspection and Yes full ROM Assessment and Plan Assessment & Plan (1) Physical exam: Code(s): Z00.00 - Encounter for general adult medical examination without abnormal findings Plan: stable; do labs Orders: Orders Complete Blood Count Auto Diff Today D64.9 - Anemia, unspecified Comprehensive Wirt. Panel Fast Today N28.9 - Disorder of kidney and ureter, unspecified Lipid Panel Today E78.5 - Hyperlipidemia, unspecified Thyroid Stimulating Hormone Today E03.9 - Hypothyroidism, unspecified Coding Level of Care Code Est Pt Prev Care 40-64y(02691) Diagnoses Physical exam Z00.00
[2023-09-05 09:56] VITALS: BP 102/62; PULSE 87; O2SAT 97; BMI 25.4
== END 2023-09-05 10:28 | disposition home or self-care (01) ==
PROVIDERS: Visit Provider Internal Medicine
DX: Z00.00 Encounter for general adult medical examination without abnormal findings (principal)
CPT/HCPCS: 99396

== ENCOUNTER 2024-01-28 07:47 | Outpatient (REF) | payer OTHER, SELFPAY | END 2024-01-28 07:48 | disposition home or self-care (01) | LOC: HO.LNP 07:47 | PROVIDERS: PCP Internal Medicine; Visit Provider Obstetrics & Gynecology | DX: L82.1 Other seborrheic keratosis (principal); L98.8 Other specified disorders of the skin and subcutaneous tissue | CPT/HCPCS: 11401; 88304 ==

== ENCOUNTER 2024-01-28 07:47 | Outpatient (AMB) | payer OTHER, SELFPAY ==
[2024-01-28 08:15] VITALS: BP 110/74; BMI 25.3
--- NOTE | 2024-01-28 08:15 | A.OFFVIS_ITS ---
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: No Information Interpreted: non-clinical & clinical Machine Bander And Cellophaner Helper: Machine Bander And Cellophaner Helper Present (Deborah HERNANDEZ) Accompanied by: Self / Same As Patient Allergies No Known Allergies [No Known Allergies*] Allergy (Verified 01/28/24 08:16) Post menopausal: Yes HPI Comments Details: Presenting for excision of a right breast dark lesion [facility] Medical History Anxiety IBS (irritable bowel syndrome) Depression White esophagus GERD (gastroesophageal reflux disease) Polyarthralgia Surgical History H/O esophagogastroduodenoscopy H/O colonoscopy History of tonsillectomy History of unilateral oophorectomy Family History Mother No problems noted. Father No problems noted. 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 Preop dx: Right breast dark skin lesion Op: Right breast dark skin lesion excision Post op: Same Anesthesia: Lidocaine 1% 3cc used Procedure: Using betadine the area was scrubbed and draped in the usual manner. 3 cc of lidocaine was used for anesthesia at the Right breast dark skin lesion area ; using scissors and pickup the Right breast dark skin lesion was excised, Vicryl was used to approximate the edges. Pressure was used for hemostasis. The patient tolerated the procedure well. Discharge Instructions: The patient was instructed to schedule an appointment in 2 weeks for follow-up and to call if temp>100.4, area of the biopsy redness or pain, nausea/vomiting. This note was generated with a voice recognition program. Some errors may have been overlooked during the review of this note. Sometimes these errors may affect the content or meaning of a given sentence. 61884-czuyk/arms/legs < 0.5cm Procedure code (CPT) selection complete Office Meds lidocaine 1 %-epinephrine 1:100,000 injection solution Performing Provider: Catalino Natarajan MD Performing Location[place] [facility] Documented (not given) by: Catalino Natarajan MD on 01/28/24 08:18 Dose Route Admin Location Dispensed Lot Number Expiration Date NDC Water Truck Driver 30 mL Infiltration mL Assessment & Plan Assessment & Plan (1) Skin lesion of breast: Comment: Right breast Code(s): L98.8 - Other specified disorders of the skin and subcutaneous tissue Category: Medical Plan: Excision of the right breast skin lesion done, see procedure note Orders: Orders AMB Excision Today L98.8 - Other specified disorders of the skin and subcutaneous tissue Medications: New lidocaine-epinephrine 1 %-1:100,000 30 mL Infiltration ONCE 30 mL 0RF L98.8 - Other specified disorders of the skin and subcutaneous tissue Coding Level of Care Code Procedure Only Diagnoses Skin lesion of breast L98.8 CPT Codes Trunk/Arms/Legs - CPT: 36449-arrts/arms/legs < 0.5cm ([id number])
== END 2024-01-28 08:44 | disposition home or self-care (01) ==
PROVIDERS: PCP Internal Medicine; Visit Provider Obstetrics & Gynecology
DX: L82.1 Other seborrheic keratosis (principal); L98.8 Other specified disorders of the skin and subcutaneous tissue
CPT/HCPCS: 11401

== ENCOUNTER → 2024-02-10 09:00 | Outpatient (BNV) | payer OTHER, SELFPAY | PROVIDERS: PCP Internal Medicine; Visit Provider Radiology Diagnostic Radiology | DX: Z12.31 Encounter for screening mammogram for malignant neoplasm of breast (principal) | CPT/HCPCS: 77063; 77067 ==

== ENCOUNTER 2024-02-10 09:20 | Outpatient (REF) | payer OTHER, SELFPAY | END 2024-02-10 09:21 | disposition home or self-care (01) | LOC: HO.MAMMO 09:20 | PROVIDERS: PCP Internal Medicine; Visit Provider Internal Medicine | DX: Z12.31 Encounter for screening mammogram for malignant neoplasm of breast (principal) | CPT/HCPCS: 77063; 77067 ==

== ENCOUNTER 2024-02-16 09:39 | Outpatient (REF) | payer OTHER, SELFPAY ==
--- NOTE | ~2024-02-16 | XR_ITS ---
EXAM: X-RAY RIGHT HAND X-RAY LUMBAR SPINE CLINICAL INFORMATION: Pain in unspecified hand, ongoing pain possibly from at work sitting. Back pain. COMPARISON: Right hand 07/06/2019. Lumbar spine 03/29/2022. TECHNIQUE: 3 views of the lumbar spine. PA and lateral views only were obtained of the right hand. Oblique view at no charge to patient recommended for complete series and, if this view is obtained, an addendum will be dictated. FINDINGS: Right hand: PA and lateral views of the right hand only were provided. Oblique view at no charge to patient recommended for complete series and, if this views obtained, an addendum will be dictated. Bones are diffusely demineralized. Moderate degenerative changes in the first carpometacarpal joint with joint space narrowing and hypertrophic change. Mild degenerative changes and scattered IP joints and in the first metacarpophalangeal joint. No displaced fracture appreciated. Lumbar spine: Facet arthritis in the lower lumbar spine. Multilevel lumbar spondylosis with moderate loss of disc space height at L4-L5. Grade 1 anterolisthesis of L4 on L5. Facet arthritis in the lower lumbar spine. XR/XR hand RT 2V IMPRESSION: 1. Moderate degenerative changes in the first carpometacarpal joint. 2. Facet arthritis in the lower lumbar spine. 3. Progression of spondylosis with moderate loss of disc space height at L4-L5. Grade 1 anterolisthesis of L4 on L5. 4. PA and lateral views of the right hand only were provided. Oblique view at no charge to patient recommended for complete series and, if this views obtained, an addendum will be dictated.
--- NOTE | ~2024-02-16 | XR_ITS ---
EXAM: X-RAY RIGHT HAND X-RAY LUMBAR SPINE CLINICAL INFORMATION: Pain in unspecified hand, ongoing pain possibly from at work sitting. Back pain. COMPARISON: Right hand 07/06/2019. Lumbar spine 03/29/2022. TECHNIQUE: 3 views of the lumbar spine. PA and lateral views only were obtained of the right hand. Oblique view at no charge to patient recommended for complete series and, if this view is obtained, an addendum will be dictated. FINDINGS: Right hand: PA and lateral views of the right hand only were provided. Oblique view at no charge to patient recommended for complete series and, if this views obtained, an addendum will be dictated. Bones are diffusely demineralized. Moderate degenerative changes in the first carpometacarpal joint with joint space narrowing and hypertrophic change. Mild degenerative changes and scattered IP joints and in the first metacarpophalangeal joint. No displaced fracture appreciated. Lumbar spine: Facet arthritis in the lower lumbar spine. Multilevel lumbar spondylosis with moderate loss of disc space height at L4-L5. Grade 1 anterolisthesis of L4 on L5. Facet arthritis in the lower lumbar spine. XR/XR lumbar spine 2-3V IMPRESSION: 1. Moderate degenerative changes in the first carpometacarpal joint. 2. Facet arthritis in the lower lumbar spine. 3. Progression of spondylosis with moderate loss of disc space height at L4-L5. Grade 1 anterolisthesis of L4 on L5. 4. PA and lateral views of the right hand only were provided. Oblique view at no charge to patient recommended for complete series and, if this views obtained, an addendum will be dictated.
== END 2024-02-16 09:40 | disposition home or self-care (01) ==
LOC: HO.XRAY 09:39
PROVIDERS: PCP Internal Medicine; Visit Provider Internal Medicine
DX: M54.9 Dorsalgia, unspecified (principal); M79.641 Pain in right hand
CPT/HCPCS: 72100; 73120

== ENCOUNTER 2024-02-18 08:07 | Outpatient (AMB) | payer OTHER, SELFPAY ==
--- NOTE | 2024-02-18 08:10 | MHC.OFFVIS ---
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 Pathology report showed the following: Skin, right breast, excision: Seborrheic keratosis [facility] Medical History Anxiety IBS (irritable bowel syndrome) Depression White esophagus GERD (gastroesophageal reflux disease) Polyarthralgia Surgical History H/O esophagogastroduodenoscopy H/O colonoscopy History of tonsillectomy History of unilateral oophorectomy Family History Mother No problems noted. Father No problems noted. 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: No Hearing needs: No Vision needs: Yes Review of Systems Const All systems reviewed & are unremarkable except as noted in HPI and below Reports as per HPI and Reports no additional complaints GI Reports no additional complaints Reports no additional complaints Physical Exam Vital Signs: Last Vital Signs BP 116/70 02/18/24 08:13 BMI result Body Mass Index 25.3 Chest Other: Right breast incision site healing well, clean dry and intact Assessment & Plan Assessment & Plan (1) Skin lesion of breast: Comment: Right breast Code(s): L98.8 - Other specified disorders of the skin and subcutaneous tissue Category: Medical Plan: Discussed with the patient the results the pathology report. All questions answered, the patient verbalized understanding. Coding Level of Care Code Est Pt Level 3 (64240) Diagnoses Skin lesion of breast L98.8
[2024-02-18 08:13] VITALS: BP 116/70; BMI 25.3
== END 2024-02-18 08:20 | disposition home or self-care (01) ==
PROVIDERS: PCP Internal Medicine; Visit Provider Obstetrics & Gynecology
DX: L98.8 Other specified disorders of the skin and subcutaneous tissue (principal)
CPT/HCPCS: 99213

== ENCOUNTER → 2024-02-18 08:07 | Outpatient (BNVA) | payer OTHER, SELFPAY | PROVIDERS: PCP Internal Medicine; Visit Provider Obstetrics & Gynecology | DX: L98.8 Other specified disorders of the skin and subcutaneous tissue (principal) | CPT/HCPCS: 99212 ==

== ENCOUNTER 2024-03-18 09:39 | Outpatient (AMB) | payer OTHER, SELFPAY ==
[2024-03-18 09:40] VITALS: BP 102/60; PULSE 70; O2SAT 97; BMI 25.0
--- NOTE | 2024-03-18 09:40 | MHC.PC.OV ---
Vital Signs 03/18/24 09:40 Height 5 ft 5 in Weight 150 lb BMI 25.0 BP 102/60 Blood Pressure Location Lt brachial Position Sitting Pulse 70 Pulse Source Pulse Oximeter Pulse Oximetry (%) 97 Oxygen Delivery Method Room Air Intake Visit Reasons: 6mth f/u Security Expert Required: No Allergies No Known Allergies [No Known Allergies*] Allergy (Verified 03/18/24 09:40) Medication List - Last Reconciled 03/19/24 by Ronak Rico MD calcium carbonate-vitamin D3 600 mg-20 mcg (800 unit) (Caltrate with Vitamin D3) 1 tab PO DAILY clindamycin phosphate 1% 1 appl topical DAILY dicyclomine 10 mg PO BID PRN duloxetine 60 mg PO DAILY hydrocortisone 2.5% 1 appl topical BID melatonin 3 mg PO BEDTIME multivitamin 1 tab PO DAILY triamcinolone acetonide 0.1% 1 appl topical BID Tobacco use date assessed: 03/18/24 Fall risk assessment: No Falls in past year Last assessed Fall Risk: 03/18/24 Dental Screening Dental Screen Date: 03/18/24 Did you have a dental visit in the last 12 months?: No Did you have a dental problem in the last 6 months where you did not have access to dental care?: No Was dental information given to patient?: Patient has dentist HPI 6mth f/u HPI Details fibromyalgia and doing well; [facility] Medical History Anxiety IBS (irritable bowel syndrome) Depression White esophagus GERD (gastroesophageal reflux disease) Polyarthralgia Surgical History H/O esophagogastroduodenoscopy H/O colonoscopy History of tonsillectomy History of unilateral oophorectomy Family History Mother No problems noted. Father No problems noted. 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 1. Little interest or pleasure in doing things: several days 2. Feeling down, depressed, or hopeless: several days 3. Trouble falling or staying asleep, or sleeping too much: several days 4. Feeling tired or having little energy: several days 5. Poor appetite or overeating: several days 6. Feeling bad about yourself - or that you are a failure or have let yourself or your family down: several days 7. Trouble concentrating on things, such as reading the newspaper or watching television: several days 8. Moving or speaking so slowly that other people could have noticed. Or the opposite - being so fidgety or restless that you have been moving around a lot more than usual: several days 9. Thoughts that you would be better off or of hurting yourself in some way: several days Total score: 9 Depression Screening Interpretation: Positive Depression Screening Done: Yes 38682 - PHQ-9 Billing: Yes Source: Developed by Drs. Remberto Miles, aNrgis Gilmore, Mark Zelaya and colleagues, with an educational odalys from [employer]. Thrive Questionnaire Date Thrive assessed: 03/18/24 I am a: Patient What is your living situation today?: I have a steady place to live Within the past 12 months, did the food you bought not last and you didn't have the money to get more?: Never true Within the past 12 months, did you worry whether your food would run out before you got money to buy more?: Never true Do you have trouble paying for medicines?: No Do you have trouble getting transportation to medical appointments?: No Do you have trouble paying your heating and electricity bill?: No Do you have trouble taking care of your child, family member or friend?: No Do you have trouble with day-to-day activities such as bathing, preparing meals, shopping, managing finances, etc.?: No Are you currently unemployed and looking for a job?: No Are you interested in more education?: No Please select the resources that you would like help with: None Currently or been in a relationship where the following occur: no concerns reported THRIVE Score: 0 AUDIT C Alcohol Use Questionnaire (AUDIT-C) 1. How often do you have a drink containing alcohol?: Never 3. How often do you have six or more drinks on one occasion?: Never Total Score: 0 Score Reviewed/Action Taken: Yes HEIDI-7 AMB Questionnaire HEIDI-7 Date HEIDI - 7 assessed: 03/18/24 Source: Developed by Drs. Remberto Miles, Nargis Gilmore, Mark Zelaya and colleagues, with an educational odalys from [employer]. Review of Systems Const Denies chills, Denies headache(s) and Denies weight loss ENT Denies headache(s) Card Denies chest pain, Denies syncope, Denies irregular heart rhythm and Denies dyspnea Resp Denies chest congestion, Denies cough and Denies dyspnea GI Denies abdominal pain, Denies change in stool character, Denies nausea and Denies vomiting Musc Denies deformity and Denies joint swelling Neuro Denies syncope and Denies headache(s) Physical exam (Primary Care) Vital Signs: Last Vital Signs Pulse 70 03/18/24 09:40 BP 102/60 03/18/24 09:40 Pulse Ox 97 03/18/24 09:40 Oxygen Delivery Method Room Air 03/18/24 09:40 BMI result Body Mass Index 25.0 Tobacco/Smoking Status: Tobacco use Status Tobacco use date assessed 03/18/24 03/18/24 09:45 Patient Tobacco Use Status Former Tobacco user 03/18/24 09:45 e-Cigarette/Vaping Use Never Used 03/18/24 09:45 PHQ-9: PHQ-9 Score PHQ-9: Total score 9 03/18/24 09:45 Depression Screening Interpretation: Positive Thrive Assessment: Date of Thrive Assessment Date Thrive assessed 03/18/24 03/18/24 09:45 Currently or been in a relationship where the following occur: no concerns reported Const General: cooperative, comfortable, no acute distress and alert Neck Neck: Yes no lymphadenopathy Thyroid: Thyroid normal Resp Effort & Inspection: normal respiratory effort Auscultation: clear to auscultation bilaterally Percussion: percussion normal Cardio Jugular venous distension: no JVD Palpation: normal PMI Rate: regular rate Rhythm: regular rhythm Heart sounds: S1 normal heart sound present and S2 normal heart sound present GI Inspection: Yes normal to inspection Palpation (GI): No hepatosplenomegaly present Skin General skin exam: no rashes or lesions noted Extrem General: Yes no clubbing, cyanosis or edema Assessment and Plan Assessment & Plan (1) Fibromyalgia: Code(s): M79.7 - Fibromyalgia Plan: stable; same rx Coding Level of Care Code Est Pt Level 3 (04773) Diagnoses Fibromyalgia M79.7
== END 2024-03-18 10:06 | disposition home or self-care (01) ==
PROVIDERS: PCP Internal Medicine; Visit Provider Internal Medicine
DX: M79.7 Fibromyalgia (principal)
CPT/HCPCS: 99213

== ENCOUNTER 2024-07-01 15:04 | Outpatient (AMB) | payer OTHER, SELFPAY ==
[2024-07-01 15:07] VITALS: BP 118/74; PULSE 46; O2SAT 97; BMI 25.3
--- NOTE | 2024-07-01 15:07 | MHC.OFFVIS ---
Vital Signs 07/01/24 15:07 Height 5 ft 5 in Weight 152 lb BMI 25.3 BP 118/74 Blood Pressure Location Lt brachial Position Sitting Pulse 46 L Pulse Source Pulse Oximeter Pulse Oximetry (%) 97 Oxygen Delivery Method Room Air Intake Visit Reasons: Hand pain Intake Note: Patient last seen by Doctor Shannon Cook on 03/29/22. Presents today for hand pain. She also complains it's hands, neck, and feet. Allergies No Known Allergies [No Known Allergies*] Allergy (Verified 07/01/24 15:12) Medication List - Last Reconciled 07/01/24 by Kadie Nixon MD calcium carbonate-vitamin D3 600 mg-20 mcg (800 unit) (Caltrate with Vitamin D3) 1 tab PO DAILY clindamycin phosphate 1% 1 appl topical DAILY dicyclomine 10 mg PO BID PRN duloxetine 60 mg PO DAILY hydrocortisone 2.5% 1 appl topical BID melatonin 3 mg PO BEDTIME multivitamin 1 tab PO DAILY triamcinolone acetonide 0.1% 1 appl topical BID HPI Comments Details: Patient is a 64-year-old female who presents for evaluation of polyarthralgias Patient was last seen 03/29/2022 with Jenniffer Lilly NP At that time patient had multiple complaints including hand, back, knee pain. There was low suspicion of an autoimmune disease however for completion autoimmune serologies including inflammatory markers were sent which were all normal. Today she is here for follow-up. 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 She also works and is currently undergoing renovations to her house as well which has also an added level of stress. Otherwise patient denies new rashes, alopecia, oral or nasal ulcers, GI symptoms. She does note that her right hand (right-hand dominant) but sometimes be swollen. Does note morning stiffness but minimal duration of 10 minutes. Pain is worse at the end of the day Also has poor sleep hygiene. Goes to bed at 01:00Am and then wakes up at 06:00 and then has to take care of her as well as her elderly mom. She recently got back from a vacation and notes that since coming back from vacation her pains have actually improved [facility] Medical History Anxiety IBS (irritable bowel syndrome) Depression White esophagus GERD (gastroesophageal reflux disease) Polyarthralgia Surgical History H/O esophagogastroduodenoscopy H/O colonoscopy History of tonsillectomy History of unilateral oophorectomy Family History Mother No problems noted. Father No problems noted. 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 Cognitive needs: No Hearing needs: No Vision needs: Yes Review of Systems Const All systems reviewed & are unremarkable except as noted in HPI and below Reports no additional complaints, Reports fatigue and Reports malaise Card Reports no additional complaints and Denies dyspnea Resp Reports no additional complaints and Denies dyspnea Musc Reports arthralgias Endo Reports fatigue Physical Exam Vital Signs: Last Vital Signs Pulse 46 L 07/01/24 15:07 BP 118/74 07/01/24 15:07 Pulse Ox 97 07/01/24 15:07 Oxygen Delivery Method Room Air 07/01/24 15:07 BMI result Body Mass Index 25.3 Const Other: Middle-aged female in no apparent distress able to stand up from a seated position without assistance. Normal gait. Resp Effort & Inspection: normal respiratory effort and able to speak in complete sentences Auscultation: clear to auscultation bilaterally Cardio Rate: regular rate Rhythm: regular rhythm Heart sounds: S1 normal heart sound present and S2 normal heart sound present Extrem Other: Right hand: [No evidence of soft tissue swelling on inspection], [able] to make a fist. [No evidence of active synovitis or deformities] Left hand: [No evidence of soft tissue swelling on inspection], [able] to make a fist. [No evidence of active synovitis or deformities] Right wrist: [Full range of motion]. [No evidence of swelling or tenderness to palpation] Left wrist: [Full range of motion]. [No evidence of swelling or tenderness to palpation] Right elbow: [Full range of motion]. [No evidence of swelling or tenderness to palpation] Left elbow: [Full range of motion]. [No evidence of swelling or tenderness to palpation] Right shoulder: [Full range of motion]. [No evidence of impingement]. [No tenderness to palpation of the glenohumeral joints or AC joints] Left shoulder : [Full range of motion]. [No evidence of impingement]. [No tenderness to palpation of the glenohumeral joints or AC joints] Right hip: [Full range of motion] Left hip: [Full range of motion] Right knee: [Full range of motion]. [No evidence of warmth, tenderness to palpation, swelling] Left knee: [Full range of motion]. [No evidence of warmth, tenderness to palpation, swelling] Left ankle : [Full range of motion]. [No evidence of warmth, tenderness to palpation, swelling] Right ankle: [Full range of motion]. [No evidence of warmth, tenderness to palpation, swelling] Right foot: [Negative squeeze test] Left foot: [Negative squeeze test] Positive fibromyalgia tender points on examination Results Reviewed Results Reviewed: Laboratory Tests 03/29/22 03/08/23 11:59 09:47 WBC 7.2 RBC 5.35 Hgb 14.0 Hct 44.2 Plt Count 216 ESR 7 Sodium 144 Potassium 4.7 Chloride 112 H Carbon Dioxide 25 BUN 15 Creatinine 1.20 C-Reactive Protein 0.46 Results and imaging reviewed by me Assessment & Plan Assessment & Plan (1) Fibromyalgia: Code(s): M79.7 - Fibromyalgia Category: Medical Plan: Patient with positive fibromyalgia tender points as well as risk factors including poor sleep and chronic stressors in her life. , long discussion with her about practical ways for her to reduce stressors in her life as well as the importance of good sleep and exercise. 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 Recommended using arthritis gloves which she says she already has at home. We will also send her to Occupational therapy to help with that. Also recommended Tylenol 1 g b.i.d. for 2 weeks standing and then take a week break and then for another 2 weeks. Discussed with her that she does not have an autoimmune condition, low suspicion for rheumatoid arthritis at this time Plan We will see again in 6 months at that time we will review her sleep as well as Tylenol efficacy. Also reviewed occupational therapy efficacy Orders: Orders OT Evaluation and Treatment Today M19.049 - Primary osteoarthritis, unspecified hand Coding Level of Care Code Tele Est Pt Level 3 (36650) Diagnoses Fibromyalgia M79.7 Osteoarthritis M19.90
== END 2024-07-01 15:51 | disposition home or self-care (01) ==
PROVIDERS: PCP Internal Medicine; Visit Provider Student in an Organized Health Care Education/Training Program
DX: M79.7 Fibromyalgia (principal); M19.90 Unspecified osteoarthritis, unspecified site
CPT/HCPCS: 99214

== ENCOUNTER → 2024-07-01 15:04 | Outpatient (BNVA) | payer OTHER, SELFPAY | PROVIDERS: PCP Internal Medicine; Visit Provider Student in an Organized Health Care Education/Training Program | DX: M79.7 Fibromyalgia (principal); M19.049 Primary osteoarthritis, unspecified hand | CPT/HCPCS: 99212 ==

== ENCOUNTER 2024-09-23 08:09 | Outpatient (AMB) | payer MEDICARE, SELFPAY ==
--- OUTSIDE RECORDS SUMMARY | 2024-09-23 08:12 | XMS_ITS ---
Author Organization [facility] Address [address] [place] [phone] Care Team Providers Care Land Economist Name Role Phone Ronak Rico MD Primary Care Provider Unavaila Remberto Gramajo Unavailable [phone] REASON FOR VISIT cancel appt on 08/10/2024 Encounters Encounter Location Date Provider Diagnosis [facility] [address] [place] [address] 08/09/2024 Remberto Marte PLAN OF TREATMENT No Information
--- OUTSIDE RECORDS SUMMARY | 2024-09-23 08:12 | XMS_ITS ---
Author Organization [facility] Address [address] [place] [phone] Care Team Providers Care Chemical Sprayer Name Role Phone Ronak Rico MD Primary Care Provider Unavaila Remberto Gramajo Unavailable [phone] REASON FOR VISIT Patient presents today for IBS Encounters Encounter Location Date Provider Diagnosis [facility] [address] [place] [phone] 08/10/2024 Remberto Marte PLAN OF TREATMENT No Information
--- OUTSIDE RECORDS SUMMARY | 2024-09-23 08:12 | XMS_ITS ---
Author Organization [facility] Address [address] [place] [phone] Care Team Providers Care Plant Electrical Engineer Name Role Phone Ronak Rico MD Primary Care Provider Unavaila Remberto Gramajo Unavailable [phone] REASON FOR VISIT trouble with bowel movements since colonoscopy Encounters Encounter Location Date Provider Diagnosis [facility] [address] [place] [phone] 05/19/2024 Remberto Marte PLAN OF TREATMENT No Information
--- OUTSIDE RECORDS SUMMARY | 2024-09-23 08:13 | XMS_ITS | Patient Health Record ---
Author Organization [facility] Address [address] [place] [phone] Care Team Providers Care Commission Auditor Name Role Phone Ronak Rico MD Primary Care Provider Remberto Nj Unavailable [phone] ALLERGIES No Known Allergies REASON FOR REFERRAL No Information MEDICATIONS Medication SIG (Take, Route, Frequency, Duration) Notes Start Date End Date Status LORazepam 1 MG 11/2 tablet as neede d Orally Once a day Active Magnesium 500 MG 1 tablet with a meal Orally Once a day Active Caltrate 600+D Plus 1 1 PO QD Active DULoxetine HCl 20 MG Oral for 30 Active Omeprazole 20 MG 1 Orally Every morni ng for 30 day(s) 08/20/2022 Not-Taking Dicyclomine HCl 10 MG TAKE 1 TO 2 CAPSUL ES BY MOUTH 4 TIMES DAILY NEEDED FOR ABDOMINAL CRAMPS/BLOATING FOR 30 DAYS for 30 Active Melatonin 3 MG 1 tablet at bedtime as needed Orally Once a day for 30 day(s) Active Tylenol Arthritis Pain 650mg 1 orally 1 po qd Active Multi Vitamin/Minerals 1 1 Orally QD Active IMMUNIZATIONS Vaccine Route Administration Date Status Comme nts Influenza Unknown 09/16/2019 Refused Influenza Unknown 08/20/2022 Refused Influenza Unknown 03/24/2024 Refused SOCIAL HISTORY Sex Assigned At : Social History Observation Description Sex Assigned At Unknown PROBLEMS Problem Type ICD Code Onset Dates Problem Status W/U Status Risk SNOMED Code Notes Problem Encounter for screening for malignant neoplasm of colon (Z12.11) Active confirmed 671683866 Problem History of adenomatous polyp of colon (Z86.010) Active confirmed 649438071 Problem Abdominal bloating (R14.0) Active confirmed 907082057 Problem Encounter for screening for malignant neoplasm of rectum (Z12.12) Active confirmed Screening for malignant neoplasm of rectum (437471771) Problem Gastroesophageal reflux disease without esophagitis (K21.9) Active confirmed 321739263 Problem Barretts esophagus without dysplasia (K22.70) Active confirmed 073044247 Problem Constipation, unspecified constipation type (K59.00) Active confirmed 51668152 Problem White esophagus (K22.70) Active confirmed White esophagus (143735448) Problem Gastroesophageal reflux (K21.9) Active confirmed Esophageal reflux finding (099568763) Problem Irritable bowel syndrome with constipation (K58.1) Active confirmed 735042482 Problem Diverticulosis of colon (K57.30) Active confirmed Diverticulosi s of colon (144886058) VITAL SIGNS Temperature 97.7 degrees Fahrenheit 03/24/2024 Blood pressure diastolic 00 mm Hg 03/24/2024 Height 64 in 03/24/2024 Blood pressure systolic 000 mm Hg 03/24/2024 Weight 153 lb 2 oz lbs 03/24/2024 BMI 26.28 kg/m2 03/24/2024 Encounters Encounter Location Date Provider Diagnosis [facility] [address] [place] [phone] 05/19/2024 Remberto Marte [facility] [address] [place] [phone] 03/24/2024 Remberto Marte Irritable bowel synd mk with constipation K58.1 ; History of adenomatous polyp of colon Z86.010 ; Gastroesophageal reflux disease without esophagitis K21.9 ; Barretts esophagus without dysplasia K22.70 ; Abdominal bloating R14.0 and Constipation, unspecified constipation type K59.00 [facility] [address] [place] [phone] 08/10/2024 Remberto Marte [facility] [address] [place] [phone] 08/09/2024 Remberto Marte ASSESSMENTS Encounter Date Diagnosis Assessment Notes Treatment Notes Treatment Clinical Notes 03/24/2024 History of adenomato us polyp of colon (ICD-10 - Z86.010) 03/24/2024 Irritable bowel syndrome with constipation (ICD-10 - K58.1) Start using Metamucil twice a day. Add Miralax once or twice a day. Stay on a healthy high fiber diet with a lot of water. Stop the daily dicyclomine and just use as needed for abdominal cramps/discomfort Repeat upper endo and colonoscopy in 202703/24/2024 Gastroesophageal reflux disease without esophagitis (ICD-10 - K21.9) 03/24/2024 Barretts esophagus without dysplasia (ICD-10 - K22.70) 03/24/2024 Abdominal bloating (ICD-10 - R14.0) 03/24/2024 Constipation, unspecified constipation type (ICD-10 - K59.00) PLAN OF TREATMENT Future Test Test Name Order Date UPPER GI ENDOSCOPY 02/09/2015 UPPER GI ENDOSCOPY 01/08/2017 COLONOSCOPY 01/08/2017 UPPER GI ENDOSCOPY 08/20/2022 COLONOSCOPY 08/20/2022 Insurance Providers Payer Name Payer Address Payer Phone Subscriber Number Group Number Insured Name Patient Relationship to Insured Coverage Start Date Coverage End Date [facility] [address] Attn Claims NANCY Mcgovern [id number] ZOË PAN Self - patient is the insured MEDICAL (GENERAL) HISTORY Medical History History ICD Code EGD/Colonoscopy 04/24/2011-- EGD with a small HH and a small area of White's esophagus, no dysplasia; colonoscopy with a small tubular adenoma GERD/White's--upper endosc opy in February of 2015 revealed a small hiatal hernia, small area of White's esophagus without dysplasia, and gastric biopsies that were negative for H. pylori Hx of colon polyps-2.0 cm tu bular adenoma removed in 2006 at [facility], and a small TA removed in 04/2011 Denies AR,DM,CVA,Lung disease,renal dise ase Depression Positive PPD, but CXR neg--treated with isoniazid for 1 year IBS with constipation Anxiety EGD in 2016 with small to mo d-sized HH and no White's/Esophagitis, normal duodenal and gastric biopsies--no Hpylori Neg F/U screening colonoscopy in 04/2017 Colonoscopy in February of 2023 revealed a sm all tubular adenoma that was removed Upper endoscopy in February revealed a very tiny area of White's esophagus with biopsies negative for dysplasia Surgical History Surgery Date(Month/Year) Removal of the right ovary Tonsillectomy
--- NOTE | 2024-09-23 08:14 | A.OFFVIS_ITS ---
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 Complaining of pelvic pain more on the left side no associated vaginal discharge, no urinary or GI symptoms no fever or chills no nausea or vomiting. Last Pap/HPV was negative in 07/28 Last Mammogram was BI-RADS 1 in 02/26 Last Colonoscopy was done in 02/25, the recommendation was to repeat in 5 years No previous DEXA scan [facility] Medical History Osteoarthritis, hand Anxiety IBS (irritable bowel syndrome) Depression White esophagus GERD (gastroesophageal reflux disease) Polyarthralgia Surgical History H/O esophagogastroduodenoscopy H/O colonoscopy History of tonsillectomy History of unilateral oophorectomy Family History Mother No problems noted. Father No problems noted. 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 Cognitive needs: No Hearing needs: No Vision needs: Yes Female Reproductive History Menstrual Total pregnancies: 0 Date of last pap smear: 07/23/23 (negative hpv, negative pap smear) Date of Mammogram: 02/10/24 (BI RAD 1) Review of Systems Const All systems reviewed & are unremarkable except as noted in HPI and below Card Reports as per HPI Resp Reports as per HPI GI Reports as per HPI and Reports no additional complaints Reports as per HPI Physical Exam Vital Signs: Last Vital Signs BP 114/78 09/23/24 08:15 BMI result Body Mass Index 25.5 Const General: cooperative, healthy appearing and comfortable Chest Chest palpation & inspection: normal inspection of the chest and normal palpation of entire chest wall Breast/axilla inspection: normal inspection of the breasts and normal inspection of the axillae Breast/axilla palpation: normal palpation of the breasts, normal palpation of the axillae and no axillary lymphadenopathy Resp Effort & Inspection: normal respiratory effort Auscultation: clear to auscultation bilaterally Percussion: percussion normal Cardio Palpation: normal PMI Rate: regular rate Rhythm: regular rhythm Heart sounds: no murmurs and no rubs Peripheral pulses: Peripheral pulses 2+ throughout GI Inspection: Yes normal to inspection Palpation (GI): Soft to palpation, nontender, no guarding, not rigid and No hepatosplenomegaly present Percussion: Yes normal to percussion Auscultation: normal bowel sounds Rectal Exam - Female: deferred General: Yes bladder normal to palpation External Female Exam: No lesion Speculum Exam - Vagina: normal appearance of the vagina, normal palpation, normal vaginal discharge and not erythematous Speculum Exam - Cervix: normal appearance of the cervix and normal palpation Bimanual exam- vagina & uterus: normal bimanual exam, normal palpation, uterine size normal, bladder normal to palpation, consistency normal and normal palpation Bimanual Exam- Adnexa, other: normal adnexae, no masses and no tenderness Assessment & Plan Assessment & Plan (1) Well woman exam: Code(s): Z01.419 - Encounter for gynecological examination (general) (routine) without abnormal findings Category: Medical Plan: Co testing not indicated this year. Counseled the patient about the recommended dietary allowance of 1200 mg of Calcium & 800 IU of vitamin D. Instructions given the patient to schedule next screening Mammogram in 02/27. Will order DEXA scan . The patient was instructed to perform monthly self-breast exams and to schedule a 2 week DEXA scan follow-up appointment and an annual exam in a year; All questions answered and the patient verbalized understanding. (2) Pelvic pain: Code(s): R10.2 - Pelvic and perineal pain Category: Medical Plan: Urine dip done in the office was negative. pelvic ultrasound ordered. Discussed with the patient the differential diagnosis of pelvic pain including but not limited to adnexal, uterine masses, GI the (Irritable bowel syndrome, diverticulitis, others), musculoskeletal, myofascial pain abdominal wall , adhesions, endometriosis, psychological and others causes. Will check results and treat accordingly. All questions answered, the patient verbalized understanding. Instructed the patient to schedule an ultrasound and a follow-up appointment in 2 weeks. All questions answered, the patient verbalized understanding and agreed with the plan. (3) Microscopic hematuria: Code(s): R31.29 - Other microscopic hematuria Category: Medical Plan: Urine dip showed microscopic hematuria, urine culture sent. Will repeat urine dip in 2 weeks. Discussed with the patient the possible causes of microscopic hematuria including but not limited to: interstitial cystitis, polyps, stones, masses, urethral inflammatory processes and others. If Urine Culture is negative and repeat urine dip in 2 weeks shows persistent microscopic hematuria, will proceed with CT abdomen/pelvis and urology referral. Instructions given the patient to schedule a 2 week urine dip follow-up appointment. All questions answered and the patient verbalized understanding. Orders: Orders XR DEXA axial skeleton Today Z78.0 - Asymptomatic menopausal state US pelvic and transvaginal Today R10.2 - Pelvic and perineal pain Coding Level of Care Code Est Pt Level 3 (69003) Est Pt Prev Care >65y(46596) Diagnoses Well woman exam Z01.419 Pelvic pain R10.2 Microscopic hematuria R31.29
[2024-09-23 08:15] VITALS: BP 114/78; BMI 25.5
== END 2024-09-23 09:09 | disposition home or self-care (01) ==
PROVIDERS: PCP Internal Medicine; Visit Provider Obstetrics & Gynecology
DX: R10.2 Pelvic and perineal pain (principal); R31.29 Other microscopic hematuria; Z01.419 Encounter for gynecological examination (general) (routine) without abnormal findings
CPT/HCPCS: 99213; G0101

== ENCOUNTER 2024-09-23 08:09 | Outpatient (REF) | payer MEDICARE, SELFPAY | END 2024-09-23 08:10 | disposition home or self-care (01) | LOC: HO.LNP 08:09 | PROVIDERS: PCP Internal Medicine; Visit Provider Obstetrics & Gynecology | DX: Z01.419 Encounter for gynecological examination (general) (routine) without abnormal findings (principal); R10.2 Pelvic and perineal pain; R31.29 Other microscopic hematuria | CPT/HCPCS: 81002; 87086; 99212; G0101 ==

== ENCOUNTER 2024-10-04 11:28 | Outpatient (REF) | payer MEDICARE, SELFPAY ==
--- OUTSIDE RECORDS SUMMARY | 2024-10-04 11:35 | XMS_ITS ---
Author Organization [facility] Address [address] [place] [phone] Care Team Providers Care Dog Handler Name Role Phone Ronak Rico MD Primary Care Provider Unavaila Remberot Gramajo Unavailable [phone] REASON FOR VISIT Patient presents today for IBS Encounters Encounter Location Date Provider Diagnosis [facility] [address] [place] [phone] 08/10/2024 Remberto Marte PLAN OF TREATMENT No Information
--- OUTSIDE RECORDS SUMMARY | 2024-10-04 11:35 | XMS_ITS ---
Author Organization [facility] Address [address] [place] [address] Care Team Providers Care Divorce Attorney Name Role Phone Ronak Rico MD Primary Care Provider Unavaila Remberto Gramajo Unavailable [phone] REASON FOR VISIT cancel appt on 08/10/2024 Encounters Encounter Location Date Provider Diagnosis [facility] [address] [place] [address] 08/09/2024 Remberto Marte PLAN OF TREATMENT No Information
--- OUTSIDE RECORDS SUMMARY | 2024-10-04 11:36 | XMS_ITS | Patient Health Record ---
Author Organization [facility] Address [address] [place] [phone] Care Team Providers Care Sticker On Name Role Phone Ronak Rico MD Primary Care Provider Remberto Nj Unavailable [phone] ALLERGIES No Known Allergies REASON FOR REFERRAL [...] malignant neoplasm of colon (Z12.11) Active confirmed 474499907 Problem History of adenomatous polyp of colon (Z86.010) Active confirmed 731452625 Problem Abdominal bloating (R14.0) Active confirmed 913705339 Problem Encounter for screening for malignant neoplasm of rectum (Z12.12) Active confirmed Screening for malignant neoplasm of rectum (943978321) Problem Gastroesophageal reflux disease without esophagitis (K21.9) Active confirmed 348681384 Problem Barretts esophagus without dysplasia (K22.70) Active confirmed 710146788 Problem Constipation, unspecified constipation type (K59.00) Active confirmed 46370741 Problem White esophagus (K22.70) Active confirmed White esophagus (414831930) Problem Gastroesophageal reflux (K21.9) Active confirmed Esophageal reflux finding (443597982) Problem Irritable bowel syndrome with constipation (K58.1) Active confirmed 469870604 Problem Diverticulosis of colon (K57.30) Active confirmed Diverticulosi s of colon (134152162) VITAL SIGNS Temperature 97.7 degrees Fahrenheit 03/24/2024 Blood pressure diastolic 00 mm Hg 03/24/2024 Height 64 in 03/24/2024 Blood pressure systolic 000 mm Hg 03/24/2024 Weight 153 lb 2 oz lbs 03/24/2024 BMI 26.28 kg/m2 03/24/2024 Encounters Encounter Location Date Provider Diagnosis [facility] [address] [place] [phone] 05/19/2024 Remberto Marte [facility] [address] [place] [phone] 03/24/2024 Remberto Marte Irritable bowel synd mk with constipation K58.1 ; History of adenomatous polyp of colon Z86.010 ; Gastroesophageal reflux disease without esophagitis K21.9 ; Barretts esophagus without dysplasia K22.70 ; Abdominal bloating R14.0 and Constipation, unspecified constipation type K59.00 [facility] [address] [place] [phone] 08/10/2024 Remberto Marte [facility] [address] [place] [phone] 08/09/2024 Remberto Marte ASSESSMENTS Encounter Date Diagnosis [...] Insured Coverage Start Date Coverage End Date [facility] [address] Attn Claims NANCY Mcgovern [id number] ZOË PAN Self - patient is the [...] tu bular adenoma removed in 2006 at [facility], and a small TA removed in 04/2011 Denies PR,DM,CVA,Lung disease,renal dise ase Depression Positive PPD, but [...]
--- OUTSIDE RECORDS SUMMARY | 2024-10-04 11:36 | XMS_ITS ---
Author Organization [facility] Address [address] [place] [phone] Care Team Providers Care Ball Points Inspector Name Role Phone Ronak Rico MD Primary Care Provider Unavaila Remberto Gramajo Unavailable [phone] REASON FOR VISIT trouble with bowel movements since colonoscopy Encounters Encounter Location Date Provider Diagnosis [facility] [address] [place] [phone] 05/19/2024 Remberto Marte PLAN OF TREATMENT No Information
== END 2024-10-04 11:29 | disposition home or self-care (01) ==
LOC: HO.US 11:28
PROVIDERS: PCP Internal Medicine; Visit Provider Obstetrics & Gynecology
DX: R10.2 Pelvic and perineal pain (principal)
CPT/HCPCS: 76830; 76856

== ENCOUNTER → 2024-10-04 11:29 | Outpatient (BNV) | payer MEDICARE, SELFPAY | PROVIDERS: PCP Internal Medicine; Visit Provider Radiology Diagnostic Radiology | DX: R10.2 Pelvic and perineal pain (principal) | CPT/HCPCS: 76830; 76856 ==

== ENCOUNTER 2024-10-14 07:36 | Outpatient (AMB) | payer MEDICARE, SELFPAY ==
[2024-10-14 07:36] VITALS: BMI 25.5
--- NOTE | 2024-10-14 07:36 | A.OFFVIS_ITS ---
Vital Signs 10/14/24 07:36 Height 5 ft 5 in Weight 153 lb BMI 25.5 Intake Visit Reasons: urine dip Parts Representative Required: No Information Interpreted: non-clinical & clinical Accompanied by: Self / Same As Patient Allergies No Known Allergies [No Known Allergies*] Allergy (Verified 10/14/24 07:39) Post menopausal: Yes HPI Comments Details: Presenting for follow-up regarding her pelvic pain. The patient is doing well. The following workup was done so far: Last visit urine dip showed microscopic hematuria, urine culture was negative. Pelvic ultrasound showed the following: Uterus: The uterus is retroverted and anteflexed and measures 4.7 x 2.5 x 3.7 cm. The double wall endometrial thickness is 2.0 mm. The uterus is smooth in contour and has normal myometrial echogenicity. Previously visualized fibers are not visualized at this time.. Adnexa: Both ovaries are not visualized. There is no free fluid. PFSH Medical History Osteoarthritis, hand Anxiety IBS (irritable bowel syndrome) Depression White esophagus GERD (gastroesophageal reflux disease) Polyarthralgia Surgical History H/O esophagogastroduodenoscopy H/O colonoscopy History of tonsillectomy History of unilateral oophorectomy Family History Mother No problems noted. Father No problems noted. 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 Cognitive needs: No Hearing needs: No Vision needs: Yes Review of Systems Const All systems reviewed & are unremarkable except as noted in HPI and below Reports as per HPI and Reports no additional complaints GI Reports no additional complaints Reports no additional complaints Physical Exam Vital Signs: BMI result Body Mass Index 25.5 Results AMB Urinalysis Dipstick UR Leukocytes Negative Last Edit by Deborah Penny CMA on 10/14/24 07:41 UR Nitrite Negative Last Edit by Deborah Penny CMA on 10/14/24 07:41 UR Urobilinogen Normal Last Edit by Deborah Penny, SENIOR PROGRAM ANALYST on 10/14/24 07:41 UR Protein Negative Last Edit by Deborah Penny, SENIOR PROGRAM ANALYST on 10/14/24 07:41 UR Ph 6.5 Last Edit by Deborah Penny, SENIOR PROGRAM ANALYST on 10/14/24 07:41 UR Blood Large Last Edit by Deborah Penny, SENIOR PROGRAM ANALYST on 10/14/24 07:41 UR Specific Frederica 1.015 Last Edit by Deborah Penny, SENIOR PROGRAM ANALYST on 10/14/24 07:41 UR Ketone Negative Last Edit by Deborah Penny, SENIOR PROGRAM ANALYST on 10/14/24 07:41 UR Bilirubin Negative Last Edit by Deborah Penny, SENIOR PROGRAM ANALYST on 10/14/24 07:41 UR Glucose Negative Last Edit by Deborah Penny, SENIOR PROGRAM ANALYST on 10/14/24 07:41 Assessment & Plan Assessment & Plan (1) Pelvic pain: Code(s): R10.2 - Pelvic and perineal pain Category: Medical Plan: Discussed with the patient the results of the workup done including microscopic hematuria and normal pelvic ultrasound. Differential diagnosis of ob/gyn causes that have not be ruled out yet include but not limited to pelvic adhesions , or other. Recommended for the patient to see her PCP for further workup for non ob/gyn causes; if the all the results are negative and the patient's pelvic pain is persistent, instructions given to patient to call back for further testing. Meanwhile, instructions were given the patient to go to emergency room or call in case of fever above 100.4, heavy vaginal bleeding, persistence or worsening of her pelvic pain. All questions answered, the patient verbalized understanding. (2) Microscopic hematuria: Code(s): R31.29 - Other microscopic hematuria Category: Medical Plan: Repeat Urine dip done in the office today showed microscopic hematuria, urine culture was negative. Will proceed with CT abdomen/pelvis and urology referral. Instructions given to patient to call with the workup for microscopic hematuria is negative and does not explain the pelvic pain will proceed with further testing. Instructed the patient to call our office back in case a referral appointment is not scheduled, missed or canceled so that we will assist on rescheduling another appointment, the patient verbalized understanding agreed with the plan. Orders: Orders AMB Urinalysis Dipstick Today R31.29 - Other microscopic hematuria CT abdomen pelvis wo/w IV con Today R31.29 - Other microscopic hematuria Referrals Urology Referral R31.29 - Other microscopic hematuria Coding Level of Care Code Est Pt Level 3 (15577) Diagnoses Pelvic pain R10.2 Microscopic hematuria R31.29
--- OUTSIDE RECORDS SUMMARY | 2024-10-14 07:38 | XMS_ITS ---
Author Organization [facility] Address [address] [place] [address] Care Team Providers Care Hardness Inspector Name Role Phone Ronak Rico MD Primary Care Provider Unavaila Remberto Gramajo Unavailable [phone] REASON FOR VISIT trouble with bowel movements since colonoscopy Encounters Encounter Location Date Provider Diagnosis [facility] [address] [place] [phone] 05/19/2024 Remberto Marte PLAN OF TREATMENT No Information
--- OUTSIDE RECORDS SUMMARY | 2024-10-14 07:38 | XMS_ITS | Patient Health Record ---
Author Organization [facility] Address [address] [place] [address] Care Team Providers Care Matrix Inspector Name Role Phone Ronak Rico MD Primary Care Provider Remberto Nj Unavailable [phone] ALLERGIES No Known Allergies REASON FOR REFERRAL [...] malignant neoplasm of colon (Z12.11) Active confirmed 274178871 Problem History of adenomatous polyp of colon (Z86.010) Active confirmed 024715488 Problem Abdominal bloating (R14.0) Active confirmed 867386221 Problem Encounter for screening for malignant neoplasm of rectum (Z12.12) Active confirmed Screening for malignant neoplasm of rectum (503986549) Problem Gastroesophageal reflux disease without esophagitis (K21.9) Active confirmed 796882792 Problem Barretts esophagus without dysplasia (K22.70) Active confirmed 811796714 Problem Constipation, unspecified constipation type (K59.00) Active confirmed 62020532 Problem White esophagus (K22.70) Active confirmed White esophagus (202339407) Problem Gastroesophageal reflux (K21.9) Active confirmed Esophageal reflux finding (351100472) Problem Irritable bowel syndrome with constipation (K58.1) Active confirmed 035520562 Problem Diverticulosis of colon (K57.30) Active confirmed Diverticulosi s of colon (066498302) VITAL SIGNS Temperature 97.7 degrees Fahrenheit 03/24/2024 Blood pressure diastolic 00 mm Hg 03/24/2024 Height 64 in 03/24/2024 Blood pressure systolic 000 mm Hg 03/24/2024 Weight 153 lb 2 oz lbs 03/24/2024 BMI 26.28 kg/m2 03/24/2024 Encounters Encounter Location Date Provider Diagnosis [facility] [address] [place] [phone] 05/19/2024 Remberto Marte [facility] [address] [place] [phone] 03/24/2024 Remberto Marte Irritable bowel synd mk with constipation K58.1 ; History of adenomatous polyp of colon Z86.010 ; Gastroesophageal reflux disease without esophagitis K21.9 ; Barretts esophagus without dysplasia K22.70 ; Abdominal bloating R14.0 and Constipation, unspecified constipation type K59.00 [facility] [address] [place] [phone] 08/10/2024 Remberto Marte [facility] [address] [place] [phone] 08/09/2024 Remberto Marte ASSESSMENTS Encounter Date Diagnosis [...] Insured Coverage Start Date Coverage End Date [facility] [address] Attn Claims NANCY Mcgovern [id number] ZOË PAN Self - patient is the [...] tu bular adenoma removed in 2006 at [facility], and a small TA removed in 04/2011 Denies SD,DM,CVA,Lung disease,renal dise ase Depression Positive PPD, but [...]
--- OUTSIDE RECORDS SUMMARY | 2024-10-14 07:38 | XMS_ITS ---
Author Organization [facility] Address [address] [place] [phone] Care Team Providers Care Sitecore Developer Name Role Phone Ronak Rico MD Primary Care Provider Unavaila Remberto Gramajo Unavailable [phone] REASON FOR VISIT cancel appt on 08/10/2024 Encounters Encounter Location Date Provider Diagnosis [facility] [address] [place] [address] 08/09/2024 Remberto Marte PLAN OF TREATMENT No Information
== END 2024-10-14 08:10 | disposition home or self-care (01) ==
LOC: HO.HWS 07:36
PROVIDERS: PCP Internal Medicine; Visit Provider Obstetrics & Gynecology
DX: R10.2 Pelvic and perineal pain (principal); R31.29 Other microscopic hematuria
CPT/HCPCS: 99213

== ENCOUNTER → 2024-10-14 07:36 | Outpatient (BNVA) | payer MEDICARE, SELFPAY | PROVIDERS: PCP Internal Medicine; Visit Provider Obstetrics & Gynecology | DX: R10.2 Pelvic and perineal pain (principal); R31.29 Other microscopic hematuria | CPT/HCPCS: 81002; 99212 ==

== ENCOUNTER 2024-10-28 09:51 | Outpatient (REF) | payer MEDICARE, SELFPAY ==
--- NOTE | ~2024-10-28 | MM_ITS ---
EXAMINATION: DXA BONE DENSITY AXIAL HISTORY: Estrogen deficiency TECHNIQUE: [email or web address] Dual energy absorptiometry (DEXA) of the lumbar spine, total left hip, and femoral neck was performed. COMPARISON: Comparison is made with the prior examination dated 04/23/2011. FINDINGS: The bone mineral density of the lumbar spine is 1.031 with a T-score of -1.2, and a Z-score of 0.2. This represents a BMD change of -4.4% compared to the prior exam. This is statistically significant. The bone mineral density of the left total hip is 0.809 with a T-score of -1.6, and a Z-score of -0.4. This represents BMD change of -2.2% compared to the prior exam. This is not statistically significant. The bone mineral density of the left femoral neck is 0.791 with a T-score of -1.8, and a Z-score of -0.4. FRACTURE RISK: The FRAX index suggests a ten year probability of major osteoporotic fracture of 5.7%, and of hip fracture 0.8%. MM/XR DEXA axial skeleton IMPRESSION: Based on bone mineral density, and according to World Health Organization (WHO) criteria, the diagnosis is consistent with osteopenia. All bone density values are in grams per centimeter squared (g/cm2). Statistically, 68% of repeat scans fall within 1 SD (+/- 0.010 g/cm2 for AP spine L1-L4) and 1 SD (+/- 0.012 g/cm2 for femur total) FRAX is a trademark of the [employer], a World Health Organization (WHO) Collaborating Center. Electronically signed by: Remberto Mandujano MD 10/28/2024 12:06 PM [facility]
== END 2024-10-28 09:52 | disposition home or self-care (01) ==
LOC: HO.MAMMO 09:51
PROVIDERS: PCP Internal Medicine; Visit Provider Obstetrics & Gynecology
DX: Z13.820 Encounter for screening for osteoporosis (principal); Z78.0 Asymptomatic menopausal state
CPT/HCPCS: 77080

== ENCOUNTER → 2024-10-28 10:00 | Outpatient (BNV) | payer MEDICARE, SELFPAY | PROVIDERS: PCP Internal Medicine; Visit Provider Radiology Diagnostic Radiology | DX: Z78.0 Asymptomatic menopausal state (principal) | CPT/HCPCS: 77080 ==

== ENCOUNTER 2024-11-17 13:24 | Emergency (ER) | payer MEDICARE, SELFPAY ==
--- NOTE | ~2024-11-17 | XR_ITS ---
EXAMINATION: XR FOOT, RIGHT CLINICAL INFORMATION: fall COMPARISON: None available. TECHNIQUE: AP, lateral, and oblique views of the right foot. FINDINGS: No fracture, dislocation, or suspicious bone lesion. Normal bone mineralization. Normal alignment. Joint spaces are preserved. No significant arthropathy. Soft tissues appear normal. XR/XR foot RT min 3V IMPRESSION: Normal right foot. Electronically signed by: Raul Rojo MD 11/17/2024 02:32 PM [facility]
--- NOTE | ~2024-11-17 | XR_ITS ---
EXAMINATION: XR KNEE 3 VIEWS LEFT HISTORY: pain s/p fall COMPARISON: Comparison is made with the prior examination dated 04/06/2020. FINDINGS: Four views of the left knee are submitted. Osseous mineralization is normal. There is no fracture or dislocation. The joint spaces are preserved. The soft tissues are unremarkable. XR/XR knee LT 3V IMPRESSION: Unremarkable examination of the left knee. Electronically signed by: Remberto Mandujano MD 11/17/2024 02:30 PM [facility]
--- NOTE | ~2024-11-17 | XR_ITS ---
EXAMINATION: XR ANKLE, RIGHT CLINICAL INFORMATION: fall COMPARISON: None available. TECHNIQUE: AP, lateral, and mortise views of the right ankle. FINDINGS: No fracture. Alignment is anatomic. No erosions. Joint spaces are maintained. Soft tissues are normal. XR/XR ankle RT min 3V IMPRESSION: Normal right ankle. Electronically signed by: Raul Rojo MD 11/17/2024 02:29 PM [facility]
--- NOTE | ~2024-11-17 | XR_ITS ---
EXAMINATION: XR FOOT, LEFT CLINICAL INFORMATION: great toe pain COMPARISON: None available. TECHNIQUE: AP, lateral, and oblique views of the left foot. FINDINGS: No fracture, dislocation, or suspicious bone lesion. Normal bone mineralization. Normal alignment. Joint spaces are preserved. No significant arthropathy. Soft tissues appear normal. XR/XR foot LT min 3V IMPRESSION: Normal left foot. Electronically signed by: Raul Rojo MD 11/17/2024 02:34 PM [facility]
[2024-11-17 13:41] VITALS: BP 121/61; PULSE 51; RESP 18; TEMP 36.4; O2SAT 98; BMI 25.0
--- NOTE | 2024-11-17 13:41 | ED_ITS ---
HPI - Extremity Injury (Lower) General Chief Complaint: Fall Stated Complaint: L Ankle Injury Fall 11/17/24 Time Seen by Provider: 11/17/24 16:19 Source: patient, RN notes reviewed and old records reviewed Mode of arrival: wheelchair History of Present Illness ED Provider: Dianne Bean PA-C HPI Narrative: 64-year-old female with a past medical history anxiety, IBS, depression, GERD, White's esophagus, presenting to the ED complaining right ankle/foot, left knee and left great toe pain s/p mechanical trip and fall down 2 stairs RECRUITING OPERATIONS CONSULTANT. Denies symptoms prior to fall including lightheadedness/dizziness. Denies head trauma or LOC. denies anticoagulation use. Has been ambulatory since incident with pain. Related Data Home Medications ?Medication ?Instructions ?Recorded ?Confirmed calcium 600 mg (as 1 tab PO DAILY 10/11/20 07/01/24 carbonate)-vitamin D3 20 mcg (800 unit) tablet (Caltrate with Vitamin D3) multivitamin 1 tab PO DAILY 10/11/20 07/01/24 duloxetine 60 mg capsule,delayed 60 mg PO DAILY 02/26/23 07/01/24 release clindamycin phosphate 1 % lotion 1 appl topical DAILY 09/05/23 07/01/24 dicyclomine 10 mg capsule 10 mg PO BID PRN 09/05/23 07/01/24 hydrocortisone 2.5 % topical 1 appl topical BID 09/05/23 07/01/24 ointment melatonin 3 mg tablet 3 mg PO BEDTIME 09/05/23 07/01/24 triamcinolone acetonide 0.1 % 1 appl topical BID 09/05/23 07/01/24 topical ointment Allergies Allergy/AdvReac Type Severity Reaction Status Date / Time No Known Allergies Allergy Verified 11/17/24 13:44 [No Known Allergies*] Review of Systems Review of Systems: Yes all other systems are reviewed and are negative Constitutional: Constitutional: Reports as per [facility] Past Medical History Attestation statement: The following information was validated with the patient. Source: old records reviewed Medical History Osteoarthritis, hand Anxiety IBS (irritable bowel syndrome) Depression White esophagus GERD (gastroesophageal reflux disease) Polyarthralgia Surgical History H/O esophagogastroduodenoscopy H/O colonoscopy History of tonsillectomy History of unilateral oophorectomy Family History Family History Mother No problems noted. Father No problems noted. 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 Cognitive needs: No Hearing needs: No Vision needs: Yes Physical Exam Vital Signs: Vital Signs: Last Vital Signs Temp 97.5 F 11/17/24 13:41 Pulse 51 11/17/24 13:41 Resp 18 11/17/24 13:41 BP 121/61 11/17/24 13:41 Pulse Ox 98 11/17/24 13:41 O2 Del Method Room Air 11/17/24 13:41 BMI result Body Mass Index 25.0 Const: General: cooperative, healthy appearing and no acute distress Or ientation/consciousness: patient oriented x3 Limitations: no limitations HEENT: Head: Yes normal to inspection and Yes atraumatic Ears: hearing grossly normal bilaterally General nose exam: Normal external nose present Face and sinus: Yes normal facial exam Eyes: General: appearance normal, both eyes and all related structures EOM: EOMs intact bilaterally Neck: Neck: Yes normal visual inspection and Yes no meningeal signs Resp: Effort & Inspection: normal respiratory effort and no respiratory distress Cardio: Rate: regular rate Skin: Rashes: no rashes Wounds: no wounds Neuro: General: patient oriented x3, tone normal and no meningeal signs Cranial nerves: Yes CN's II-XII intact bilaterally Gait exam (Neuro): Normal gait present Extrem: Other: Right ankle with mild lateral malleolar swelling and tenderness. Neurovascularly intact distally. No erythema or warmth. ROM intact with discomfort Left knee without noted deformity. Mildly tender. Full range of motion intact. Left foot without noted deformity, great toe with tenderness. Course Course Course Narrative: This is a Rapid Medical Exam performed in triage by Dianne Bean PA-C. Full HPI, ROS and PE to be performed by primary ED provider. 64 yo F presenting to the ED c/o R ankle/foot, L knee & toe pain s/p mechanical trip & fall down 2 stairs RECRUITING OPERATIONS CONSULTANT PE: + tenderness to right ankle, left knee and left great toe. No deformity Plan: X-rays XR knee LT 3V IMPRESSION: Unremarkable examination of the left knee. XR foot LT min 3V IMPRESSION: Normal left foot. XR foot RT min 3V IMPRESSION: Normal right foot. XR ankle RT min 3V IMPRESSION: Normal right ankle. > Dillon wrap applied to right ankle for compression/comfort. Results discussed with patient including worrisome signs and symptoms and strict return precautions, and when to return to the emergency department. They verbalized understanding and feel safe for discharge at this time. Medical Decision Making Medical Decision Making MDM Narrative: 64-year-old female with a past medical history anxiety, IBS, depression, GERD, White's esophagus, presenting to the ED complaining right ankle/foot, left knee and left great toe pain s/p mechanical trip and fall down 2 stairs RECRUITING OPERATIONS CONSULTANT. On exam VSS, NAD, nontoxic appearing, physical exam as noted above. Concern for fracture vs sprain. Low suspicion for ICH. No evidence of cellulitis plan: X-rays Please refer to course for remaining clinical decision making, interpretation of labs/imaging results, and discussions with consultants and/or family members. Differential Diagnosis Differential Diagnoses: The differential diagnosis associated with the presentation includes As above Independent Interpretation I performed an independent interpretation of an: Plain X-Ray Radiology Impression Discussion of test interpretation with radiology: I have reviewed the radiologist's reading. External Record Review External record reviewed: Inpatient record, Office record, Outpatient record, Prior outpatient labs, Prior outpatient radiology, Primary care record and Outside ED record Tests considered The following testing was considered but not selected: As above Prescription Management I considered prescription management with: Pain Medication Chronic Conditions Patient?s care impacted by: Other Social Determinants Patient?s care significantly limited by Social Determinants of Health including: Other Social Determinant of Health Discharge Plan Discharge Clinical Impression: Knee sprain, Ankle sprain Patient Disposition: Home, Self-Care Instructions: Ankle Sprain (DC), Knee Sprain (DC), R.I.C.E. Treatment (ED) Additional Instructions: Your x-rays are unremarkable Wear Dillon wraps for compression/comfort and stability Ice elevate Take ibuprofen and Tylenol as needed Follow-up with your doctor If symptoms persist or worsen or pain becomes unbearable return to the ED Prescriptions: No Action melatonin 3 mg tablet 3 mg PO BEDTIME dicyclomine 10 mg capsule 10 mg PO BID PRN triamcinolone acetonide 0.1 % ointment 1 appl topical BID hydrocortisone 2.5 % ointment 1 appl topical BID clindamycin phosphate 1 % lotion 1 appl topical DAILY duloxetine 60 mg capsule,delayed release(DR/EC) 60 mg PO DAILY calcium carbonate-vitamin D3 [Caltrate with Vitamin D3] 600 mg(1,500mg) -800 unit tablet 1 tab PO DAILY multivitamin Tablet 1 tab PO DAILY lidocaine-epinephrine 1 %-1:100,000 solution 30 ml Infiltration ONCE Qty: 30 0RF Referrals: Ronak Rico MD [Primary Care Provider] - 1 week Print Language: Georgian
[2024-11-17 16:19] VITALS: BP 114/56; PULSE 52; RESP 20; TEMP 36.4; O2SAT 98
[2024-11-17 16:26] VITALS: BP 114/56; PULSE 52; RESP 20; TEMP 36.4; O2SAT 98
--- OUTSIDE RECORDS SUMMARY | 2024-11-17 16:42 | XMS_ITS | Patient Health Record ---
Author Organization [facility] Address [address] [place] [phone] Care Team Providers Care Brake Holder Name Role Phone Ronak Rico MD Primary Care Provider Remberto Nj Unavailable [phone] ALLERGIES No Known Allergies REASON FOR REFERRAL [...] malignant neoplasm of colon (Z12.11) Active confirmed 305703160 Problem History of adenomatous polyp of colon (Z86.010) Active confirmed 178826187 Problem Abdominal bloating (R14.0) Active confirmed 188197047 Problem Encounter for screening for malignant neoplasm of rectum (Z12.12) Active confirmed Screening for malignant neoplasm of rectum (498563909) Problem Gastroesophageal reflux disease without esophagitis (K21.9) Active confirmed 730096691 Problem Barretts esophagus without dysplasia (K22.70) Active confirmed 282253377 Problem Constipation, unspecified constipation type (K59.00) Active confirmed 38743775 Problem White esophagus (K22.70) Active confirmed White esophagus (423764790) Problem Gastroesophageal reflux (K21.9) Active confirmed Esophageal reflux finding (471577670) Problem Irritable bowel syndrome with constipation (K58.1) Active confirmed 293904468 Problem Diverticulosis of colon (K57.30) Active confirmed Diverticulosi s of colon (105437276) VITAL SIGNS Temperature 97.7 degrees Fahrenheit 03/24/2024 Blood pressure diastolic 00 mm Hg 03/24/2024 Height 64 in 03/24/2024 Blood pressure systolic 000 mm Hg 03/24/2024 Weight 153 lb 2 oz lbs 03/24/2024 BMI 26.28 kg/m2 03/24/2024 Encounters Encounter Location Date Provider Diagnosis [facility] [address] [place] [phone] 05/19/2024 Remberto Marte [facility] [address] [place] [phone] 03/24/2024 Remberto Marte Irritable bowel synd mk with constipation K58.1 ; History of adenomatous polyp of colon Z86.010 ; Gastroesophageal reflux disease without esophagitis K21.9 ; Barretts esophagus without dysplasia K22.70 ; Abdominal bloating R14.0 and Constipation, unspecified constipation type K59.00 [facility] [address] [place] [phone] 08/10/2024 Remberto Marte [facility] [address] [place] [phone] 08/09/2024 Remberto Marte ASSESSMENTS Encounter Date Diagnosis [...] Insured Coverage Start Date Coverage End Date [facility] [address] Attn Claims NANCY Mcgovern [id number] ZOË PAN Self - patient is the [...] tu bular adenoma removed in 2006 at [facility], and a small TA removed in 04/2011 Denies MA,DM,CVA,Lung disease,renal dise ase Depression Positive PPD, but [...]
--- OUTSIDE RECORDS SUMMARY | 2024-11-17 16:43 | XMS_ITS ---
Author Organization [facility] Address [address] [place] [phone] Care Team Providers Care Whizzer Name Role Phone Ronak Rico MD Primary Care Provider Unavaila Remberto Gramajo Unavailable [phone] REASON FOR VISIT trouble with bowel movements since colonoscopy Encounters Encounter Location Date Provider Diagnosis [facility] [address] [place] [phone] 05/19/2024 Remberto Marte PLAN OF TREATMENT No Information
--- OUTSIDE RECORDS SUMMARY | 2024-11-17 16:43 | XMS_ITS ---
Author Organization [facility] Address [address] [place] [phone] Care Team Providers Care Director Trade Name Role Phone Ronak Rico MD Primary Care Provider Unavaila Remberto Gramajo Unavailable [phone] REASON FOR VISIT cancel appt on 08/10/2024 Encounters Encounter Location Date Provider Diagnosis [facility] [address] [place] [address] 08/09/2024 Remberto Marte PLAN OF TREATMENT No Information
--- OUTSIDE RECORDS SUMMARY | 2024-11-17 16:43 | XMS_ITS | Encounter Summary ---
Author Organization [facility] Address [address] [place] [address] [address] [place] [address] Care Team Providers Care Manager Operational Name Role Phone Unavailable Primary Care Provider Unavailabl e Encounter Details Date Type Department Care Team (Latest Contact Info) Description 02/09/2019 Abstract [facility] CONVERSIONS Dental, Provider, DDS Social History Tobacco Use Types Packs/Day Years Used Date Smoking Tobacco: Never Assessed Comments Unknown Sex and Gender Information Value Date Recorded Sex Assigned at Female 08/05/2022 10:16 AM EDT Legal Sex Female 10:16 AM EDT Gender Identity Female 08/05/2022 10:16 AM EDT Sexual Orientation Straight 08/05/2022 10 :16 AM EDT documented as of this encounter Plan of Treatment Not on file documented as of this encounter Visit Diagnoses Not on filedocumented in this encounter
--- OUTSIDE RECORDS SUMMARY | 2024-11-17 16:43 | XMS_ITS | Clinical Summary ---
Author Organization [facility] Address [address] [place] [address] [address] [place] [address] Care Team Providers Care Customer Acquisition Specialist Name Role Phone Unavailable Primary Care Provider Unavailabl e Allergies No known active allergies Medications EQ 8HR Arthritis Pain Relief 650 MG ER tablet Take 650 mg by mouth every 8 (eight) hours. 3 Active dicyclomine (Bentyl) 10 MG capsule TAKE 1 TO 2 CAPSULES BY MOUTH 4 TIMES DAILY NEEDED FOR ABDOMINAL CRAMPS/BLOATIN G 3 Active DULoxetine (Cymbalta) [address] capsule TAKE 1 CAPSULE BY MOUTH ONCE DAILY AT NIGHT 3 Active LORazepam (Ativan) 1 MG tablet TAKE 1/2 (ONE-HALF) TABLET BY MOUTH ONCE DAILY AND 1 EVERY DAY AT BEDTIME NEEDED FOR ANXIETY 3 Active omeprazole (PriLOSEC) [address] capsule TAKE 1 CAPSULE BY MOUTH ONCE DAILY IN THE MORNING 3 Active multivitamin (Theragran) tablet Active Social History Tobacco Use Types Packs/Day Years Used Date Smoking Tobacco: Never Passive Smoke Exposure: Never Smokeless Tobacco: Never Comments Unknown Sex and Gender Information Value Date Recorded Sex Assigned at Female 08/05/2022 10:16 AM EDT Legal Sex Female 10:16 AM EDT Gender Identity Female 08/05/2022 10:16 AM EDT Sexual Orientation Straight 08/05/2022 10 :16 AM EDT Last Filed Vital Signs Vital Sign Reading Time Taken Comments Blood Pressure 112/66 02/24/2023 1:56 PM EDT Pulse 62 02/24/2023 1:56 PM EDT Temperature - - Respiratory Rate - - Oxygen Saturation - - Inhaled Oxygen Concentration - - Weight - - Height - - Body Mass Index - - Plan of Treatment Health Maintenance Due Date Last Done Comments CT Colonography 1959 Colonoscopy 1959 Colorectal Cancer Screening 1959 Depression Screening 1959 FIT DNA/Cologuard 1959 FIT 1959 FOBT 1959 SDOH Screening 1959 Sigmoidoscopy 1959 Alcohol/Substance Use Screening 1971 Hepatitis C Screening 1977 Pap Smear 1980 Cervical Cancer Screening 1989 HPV/Cotest 1989 Mammogram 1999 Pneumococcal Vaccine: 50+ Years (1 of 1 - PCV) 2009 Zoster Vaccines (1 of 2) 2009 Dental Oral Exam 08/28/2023 02/24/2023, 04/2019, 02/04/2018, Additional history exists Dental Prophylaxis 08/28/2023 02/24/2023, 1 11/24/2018, 02/09/2019, Additional history exists Dental X-Ray: Bitewings 02/26/2024 02/25/20 23, 02/09/2019, 02/09/2019, Additional history exists Tobacco Screening 03/19/2024 03/19/2023 COVID-19 Vaccine ( - season) 2024 Influenza Vaccine (#1) 2024 09/22/2018 Dental X-Ray: Full Mouth 02/25/2026 02/24/2023, 07/06 DTaP/Tdap/Td Vaccines (2 - Td or Tdap) 04/03/2028 04/03/2018 RSV Patients and Patients Aged 60 years or older (1 - 1-dose 75+ series) 2034 HIB Vaccines Aged Out No longer eligi ble based on patient's age to complete this topic HPV Vaccines Aged Out No longer eligi ble based on patient's age to complete this topic Hepatitis A Vaccines Aged Out No long er eligible based on patient's age to complete this topic Hepatitis B Vaccines Aged Out No long er eligible based on patient's age to complete this topic IPV Vaccines Aged Out No longer eligi ble based on patient's age to complete this topic Meningococcal Vaccine Aged Out No josé miguel shiala eligible based on patient's age to complete this topic RSV under 20 months Aged Out No longe r eligible based on patient's age to complete this topic Rotavirus Vaccines Aged Out No longer eligible based on patient's age to complete this topic Procedures Procedure Name Priority Date/Time Associated Diagnosis Comments PROPHYLAXIS - ADULT Routine 02/24/2023 2 :00 PM EDT History of periodontal disease Encounter for dental examination DIAGNOSTIC - DIAGNOSTIC IMAGING - INTRAORAL - COMPREHENSIVE SERIES OF RADIOGRAPHIC IMAGES Routine 02/24/2023 2:00 PM EDT History of periodontal disease Encounter for dental examination PERIODIC ORAL EVALUATION - ESTABLISHED PATIENT Routine 02/24/2023 2:00 PM EDT History of periodontal disease Encounter for dental examination from Last 3 Months or Most Recently Relevant to Health Maintenance Insurance [facility]
--- OUTSIDE RECORDS SUMMARY | 2024-11-17 16:43 | XMS_ITS ---
Author Organization [facility] Address [address] [place] [phone] Care Team Providers Care Electric Crane Operator Name Role Phone Ronak Rico MD Primary Care Provider Unavaila Remberto Gramajo Unavailable [phone] REASON FOR VISIT Patient presents today for IBS Encounters Encounter Location Date Provider Diagnosis [facility] [address] [place] [phone] 08/10/2024 Remberto Marte PLAN OF TREATMENT No Information
== END 2024-11-17 16:27 | disposition home or self-care (01) ==
LOC: HO.ED 16:27
PROVIDERS: Emergency Provider Emergency Medicine; PCP Internal Medicine
DX: S83.92XA Sprain of unspecified site of left knee, initial encounter (principal); S93.402A Sprain of unspecified ligament of left ankle, initial encounter; M79.672 Pain in left foot; M79.671 Pain in right foot; M25.571 Pain in right ankle and joints of right foot; W10.9XXA Fall (on) (from) unspecified stairs and steps, initial encounter; Y93.9 Activity, unspecified; Y92.9 Unspecified place or not applicable; Y99.8 Other external cause status; Z79.899 Other long term (current) drug therapy; Z87.891 Personal history of nicotine dependence
CPT/HCPCS: 73562; 73610; 73630; 99282; 99283

== ENCOUNTER → 2024-11-17 13:47 | Outpatient (BNV) | payer MEDICARE, SELFPAY | PROVIDERS: PCP Internal Medicine; Visit Provider Radiology Diagnostic Radiology | DX: M25.562 Pain in left knee (principal); M79.671 Pain in right foot; M79.672 Pain in left foot | CPT/HCPCS: 73610; 73630 ==

== ENCOUNTER 2024-11-29 15:50 | Outpatient (AMB) | payer MEDICARE, SELFPAY ==
--- NOTE | 2024-11-29 15:51 | MHC.OFFVIS ---
Intake Visit Reasons: US/DEXA follow up Allergies No Known Allergies [No Known Allergies*] Allergy (Verified 11/17/24 13:44) HPI Comments Details: The patient is presenting for follow up regarding DEXA scan results. DEXA scan done recently showed the following: The bone mineral density of the lumbar spine is 1.031 with a T-score of -1.2, and a Z-score of 0.2. This represents a BMD change of -4.4% compared to the prior exam. This is statistically significant. The bone mineral density of the left total hip is 0.809 with a T-score of -1.6, and a Z-score of -0.4. This represents BMD change of -2.2% compared to the prior exam. This is not statistically significant. The bone mineral density of the left femoral neck is 0.791 with a T-score of -1.8, and a Z-score of -0.4. FRACTURE RISK: The FRAX index suggests a ten year probability of major osteoporotic fracture of 5.7%, and of hip fracture 0.8%. [facility] Medical History Osteoarthritis, hand Anxiety IBS (irritable bowel syndrome) Depression White esophagus GERD (gastroesophageal reflux disease) Polyarthralgia Surgical History H/O esophagogastroduodenoscopy H/O colonoscopy History of tonsillectomy History of unilateral oophorectomy Family History Mother No problems noted. Father No problems noted. 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 Cognitive needs: No Hearing needs: No Vision needs: Yes Review of Systems Const All systems reviewed & are unremarkable except as noted in HPI and below Reports as per HPI and Reports no additional complaints GI Reports no additional complaints Reports no additional complaints Telehealth Telehealth Telehealth Platform: Telephone Location of provider rendering services: practice address Location of patient: address on file Patient Identification confirmed using: Name, : Yes Telehealth method: video Patient verbally consented to treatment: Yes Patient verbally consented to billing insurance company: Yes Patient informed of any privacy concerns related to visit: Yes Minutes spent on Phone/Video with Pt.: 6 Assessment & Plan Assessment & Plan (1) Osteopenia: Code(s): M85.80 - Other specified disorders of bone density and structure, unspecified site Category: Medical Plan: Discussed with the patient the DEXA results and FRAX risk. FRAX risk and T score showed no evidence of osteoporosis. Discussed with the patient all the options for osteoporosis prevention including lifestyle modifications including Ca+D supplements 1200 mg po qd/800 MIU, Weight bearing exercises and proteine supplements. The patient verbalized understanding and agreed plan will repeat DEXA in 2 years. I spent a total of 20 minutes reviewing the chart, talking to the patient via video and documenting in the medical record. Coding Level of Care Code Tele Est Pt Level 3 (70485) Diagnoses Osteopenia M85.80
--- OUTSIDE RECORDS SUMMARY | 2024-11-29 18:04 | XMS_ITS | Patient Health Record ---
Author Organization [facility] Address [address] [place] [phone] Care Team Providers Care Mission Coordinator Name Role Phone Ronak Rico MD Primary Care Provider Remberto Nj Unavailable [phone] ALLERGIES No Known Allergies REASON FOR REFERRAL [...] malignant neoplasm of colon (Z12.11) Active confirmed 689271106 Problem History of adenomatous polyp of colon (Z86.010) Active confirmed 513975307 Problem Abdominal bloating (R14.0) Active confirmed 268031125 Problem Encounter for screening for malignant neoplasm of rectum (Z12.12) Active confirmed Screening for malignant neoplasm of rectum (139851620) Problem Gastroesophageal reflux disease without esophagitis (K21.9) Active confirmed 738224692 Problem Barretts esophagus without dysplasia (K22.70) Active confirmed 755287753 Problem Constipation, unspecified constipation type (K59.00) Active confirmed 08377904 Problem White esophagus (K22.70) Active confirmed White esophagus (845221076) Problem Gastroesophageal reflux (K21.9) Active confirmed Esophageal reflux finding (580688853) Problem Irritable bowel syndrome with constipation (K58.1) Active confirmed 624885651 Problem Diverticulosis of colon (K57.30) Active confirmed Diverticulosi s of colon (656359586) VITAL SIGNS Temperature 97.7 degrees Fahrenheit 03/24/2024 Blood pressure diastolic 00 mm Hg 03/24/2024 Height 64 in 03/24/2024 Blood pressure systolic 000 mm Hg 03/24/2024 Weight 153 lb 2 oz lbs 03/24/2024 BMI 26.28 kg/m2 03/24/2024 Encounters Encounter Location Date Provider Diagnosis [facility] [address] [place] [phone] 05/19/2024 Remberto Marte [facility] [address] [place] [phone] 08/10/2024 Remberto Marte [facility] [address] [place] [phone] 03/24/2024 Remberto Marte Irritable bowel synd mk with constipation K58.1 ; History of adenomatous polyp of colon Z86.010 ; Gastroesophageal reflux disease without esophagitis K21.9 ; Barretts esophagus without dysplasia K22.70 ; Abdominal bloating R14.0 and Constipation, unspecified constipation type K59.00 [facility] [address] [place] [phone] 08/09/2024 Remberto Marte ASSESSMENTS Encounter Date Diagnosis [...] Insured Coverage Start Date Coverage End Date [facility] [address] Attn Claims NANCY Mcgovern [id number] ZOË PAN Self - patient is the [...] tu bular adenoma removed in 2006 at [facility], and a small TA removed in 04/2011 Denies NE,DM,CVA,Lung disease,renal dise ase Depression Positive PPD, but [...]
--- OUTSIDE RECORDS SUMMARY | 2024-11-29 18:04 | XMS_ITS ---
Author Organization [facility] Address [address] [place] [phone] Care Team Providers Care Closet Organizer Name Role Phone Ronak Rico MD Primary Care Provider Unavaila Remberto Gramajo Unavailable [phone] REASON FOR VISIT Patient presents today for IBS Encounters Encounter Location Date Provider Diagnosis [facility] [address] [place] [phone] 08/10/2024 Remberto Marte PLAN OF TREATMENT No Information
--- OUTSIDE RECORDS SUMMARY | 2024-11-29 18:04 | XMS_ITS ---
Author Organization [facility] Address [address] [place] [phone] Care Team Providers Care Salvage Mend Worker Name Role Phone Ronak Rico MD Primary Care Provider Unavaila Remberto Gramajo Unavailable [phone] REASON FOR VISIT trouble with bowel movements since colonoscopy Encounters Encounter Location Date Provider Diagnosis [facility] [address] [place] [phone] 05/19/2024 Remberto Marte PLAN OF TREATMENT No Information
--- OUTSIDE RECORDS SUMMARY | 2024-11-29 18:04 | XMS_ITS | Clinical Summary ---
Author Organization [employer] Address [address] [place] [address] [address] [place] [address] Care Team Providers Care Search Marketing Analyst Name Role Phone Unavailable Primary Care Provider [...] Meningococcal Vaccine Aged Out No josé miguel shaila eligible based on patient's age to complete [...] of periodontal disease Encounter for dental examination INTRAORAL - COMPLETE SERIES OF RADIOGRAPHIC IMAGES Routine 02/24/2023 2:00 PM EDT History of periodontal disease Encounter for dental examination PERIODIC ORAL EVALUATION - ESTABLISHED PATIENT Routine 02/24/2023 2:00 PM EDT History of periodontal disease Encounter for dental examination from Last 3 Months or Most Recently Relevant to Health Maintenance [place] [address] [address] [place] [address]
--- OUTSIDE RECORDS SUMMARY | 2024-11-29 18:04 | XMS_ITS ---
Author Organization [facility] Address [address] [place] [phone] Care Team Providers Care Talent Director Name Role Phone Ronak Rico MD Primary Care Provider Unavaila Remberto Gramajo Unavailable [phone] REASON FOR VISIT cancel appt on 08/10/2024 Encounters Encounter Location Date Provider Diagnosis [facility] [address] [place] [address] 08/09/2024 Remberto Marte PLAN OF TREATMENT No Information
--- OUTSIDE RECORDS SUMMARY | 2024-11-29 18:04 | XMS_ITS | Encounter Summary ---
Author Organization [facility] Address [address] [place] [address] [address] [place] [address] Care Team Providers Care Cheese Blender Name Role Phone Unavailable Primary Care Provider Unavailabl e Encounter Details Date Type Department Care Team (Latest Contact Info) Description 02/09/2019 Abstract [facility] CONVERSIONS Dental, Provider, DDS Social History Tobacco [...]
== END 2024-11-29 17:49 | disposition home or self-care (01) ==
LOC: HO.HWS 15:50
PROVIDERS: PCP Internal Medicine; Visit Provider Obstetrics & Gynecology
DX: M85.80 Other specified disorders of bone density and structure, unspecified site (principal)
CPT/HCPCS: 99213

== ENCOUNTER → 2024-11-29 15:50 | Outpatient (BNVA) | payer MEDICARE, SELFPAY | PROVIDERS: PCP Internal Medicine; Visit Provider Obstetrics & Gynecology ==

== ENCOUNTER 2024-12-09 13:57 | Outpatient (REF) | payer MEDICARE, SELFPAY ==
--- OUTSIDE RECORDS SUMMARY | 2024-12-09 17:28 | XMS_ITS | Clinical Summary ---
Author Organization [employer] Address [address] [place] [address] [address] [place] [address] Care Team Providers Care Bladder Trimmer Name Role Phone Unavailable Primary Care Provider [...] Most Recently Relevant to Health Maintenance Insurance [place] [address]
--- OUTSIDE RECORDS SUMMARY | 2024-12-09 17:28 | XMS_ITS | Encounter Summary ---
Author Organization [employer] [facility] Address [address] [place] [address] [address] [place] [address] Care Team Providers Care Nuclear Operations Specialist Name Role Phone Unavailable Primary Care Provider Unavailabl e Encounter Details Date Type Department Care Team (Latest Contact Info) Description 02/09/2019 Abstract [facility] CONVERSIONS Dental, Provider, DDS Social History [...]
[2024-12-09 18:02] LABS: Urine Cytology See Pathology rpt
== END 2024-12-09 13:58 | disposition home or self-care (01) ==
LOC: HO.LNP 13:57
PROVIDERS: PCP Internal Medicine; Visit Provider Nurse Practitioner Family
DX: R31.29 Other microscopic hematuria (principal); Z87.891 Personal history of nicotine dependence
CPT/HCPCS: 81003; 88112; 99202

== ENCOUNTER 2024-12-09 13:57 | Outpatient (AMB) | payer MEDICARE, SELFPAY ==
--- NOTE | 2024-12-09 13:59 | MHC.OFFVIS ---
Intake Visit Reasons: microscopic hematuria Intake Note: New patient presents today for initial visit for microscopic hematuria Urology Medication:none Blood Thinner: none Antibiotic Allergies: none Allergies No Known Allergies [No Known Allergies*] Allergy (Verified 12/09/24 14:29) Medication List - Last Reconciled 12/09/24 by EVE Swenson calcium carbonate-vitamin D3 600 mg-20 mcg (800 unit) (Caltrate with Vitamin D3) 1 tab PO DAILY dicyclomine 10 mg PO BID PRN duloxetine 60 mg PO DAILY melatonin 3 mg PO BEDTIME multivitamin 1 tab PO DAILY triamcinolone acetonide 0.1% 1 appl topical BID HPI Comments Details: Esther is a very pleasant 64-year-old female patient of Dr. Rico. She has a past medical history of osteoarthritis, anxiety, IBS, depression, GERD, and polyarthralgia. She presents to the office today as a new patient for microscopic hematuria. In discussion with the patient today she reports having followed up with legend maker at which time urology referral was made as patient's urinalysis noted microscopic hematuria. When asked she does report a previous history of nicotine dependence for over 20 years. She reports having quit approximately 18 years ago. She reports smoking no more than 5 cigarettes per day when she was smoking. She currently denies any bothersome urinary issues. She denies urinary urgency, urinary frequency, incontinence, nocturia, hematuria, dysuria, foul smelling urine, changes to urinary stream, flank pain, fever, and or chills.She is happy with her current voiding parameters. In office urinalysis results reviewed with the patient today 2+ microscopic hematuria otherwise within normal limits. We discussed potential causes of microscopic hematuria. In review of patient's chart it appears a CT urogram has been ordered. Patient reports CT urogram is due to be completed within the next 2 weeks. We discussed further workup of microscopic hematuria. I discussed reasons for blood in the urine may include but are not limited to kidney stones, cancer in the urinary tract, kidney stone disease or inflammatory conditions of the urinary tract. I have discussed workup to include cystoscopy evaluation. She discusses her upcoming trip. She otherwise offers no other issues or concerns at this time. [facility] Medical History Osteoarthritis, hand Anxiety IBS (irritable bowel syndrome) Depression White esophagus GERD (gastroesophageal reflux disease) Polyarthralgia Surgical History H/O esophagogastroduodenoscopy H/O colonoscopy History of tonsillectomy History of unilateral oophorectomy Family History Mother No problems noted. Father No problems noted. 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 Cognitive needs: No Hearing needs: No Vision needs: Yes Review of Systems Const All systems reviewed & are unremarkable except as noted in HPI and below Physical Exam Const General: cooperative, healthy appearing, comfortable, no acute distress, well developed, alert and awake Orientation/consciousness: patient oriented x3 Limitations: no limitations HEENT Head: Yes normal to inspection, Yes normocephalic and Yes atraumatic Ears: hearing grossly normal bilaterally Eyes General: appearance normal, both eyes and all related structures Neck Neck: Yes normal visual inspection and Yes trachea midline Chest Chest palpation & inspection: normal inspection of the chest Resp Effort & Inspection: normal respiratory effort and able to speak in complete sentences Cardio Rate: regular rate GI Inspection: Yes normal to inspection General: Yes no CVA tenderness Back/Spine/Pelvis Back: no CVA tenderness Skin General skin exam: no rashes or lesions noted Neuro General: patient oriented x3 Extrem General: Yes normal to inspection Psych Appearance: grossly normal and well kempt Mental Status: mental status grossly normal Speech and movement: Normal speech and movement present and Clear speech present Affect: normal affect Attitude: cooperative Thought process: Normal thought process present Thought content: Normal thought content present Insight: Fair insight present (Psych) Judgement: Fair judgement present (Psych) Assessment & Plan Assessment & Plan (1) Microscopic hematuria: Code(s): R31.29 - Other microscopic hematuria Category: Medical (2) History of nicotine dependence: Code(s): Z87.891 - Personal history of nicotine dependence Category: Medical Plan In office urinalysis results reviewed with the patient today; as noted above; will send for urine cytology. We discussed at length potential causes of microscopic hematuria as well as further workup to include CT urogram and in office cystoscopy. Patient currently denies any bothersome urinary issues or concerns. She reports be happy with current voiding parameters. Follow-up status post completion of CT urogram; or sooner with any issues, concerns, and or questions. Orders: Orders AMB Urinalysis Automated Today Z13.9 - Encounter for screening, unspecified Urine Cytology Today R31.29 - Other microscopic hematuria Patient Instructions: The patient had an opportunity to ask questions regarding the treatment plan. All questions were answered. Physical exam, labs, and imaging were discussed and reviewed in detail. As well as risks, benefits, and discussion of treatment choices. No major barriers to understanding were identified. The patient expressed understanding and agreement with the above treatment plan. The patient was made aware they should contact our office by phone for worsening of their current condition, the appearance of new symptoms, or with any questions or concerns. Compliance is encouraged with any medications and follow up testing that is ordered. It is a privilege to be allowed the opportunity to participate in? your urological care.? Again, if you have any questions or concerns If you have any questions or concerns please do not hesitate to contact me. The office is [phone]. This note is constructed using voice recognition software. While every effort has been made to ensure accuracy card tape converter operator errors may have been included. Yours sincerely, EVE Swenson Coding Level of Care Code New Pt Level 3 (98271) Diagnoses Microscopic hematuria R31.29 History of nicotine dependence Z87.891
--- OUTSIDE RECORDS SUMMARY | 2024-12-09 17:03 | XMS_ITS | Patient Health Record ---
Author Organization [facility] Address [address] [place] [phone] Care Team Providers Care Door And Arrival Attendant Name Role Phone Ronak Rico MD Primary Care Provider Remberto Nj Unavailable [phone] Allergies No Known Allergies Reason For Referral No Information Medications Medication SIG (Take, Route, Frequency, Duration) Notes [...] Multi Vitamin/Minerals 1 1 Orally QD Active Immunizations Vaccine Route Administration Date Status Comme nts Influenza Unknown 09/16/2019 Refused Influenza Unknown 08/20/2022 Refused Influenza Unknown 03/24/2024 Refused Problems Problem Type SNOMED Code ICD Code Onset Dates Problem Status W/U Status Risk Notes Problem 179646526 Encounter for screening for malignant neoplasm of colon (Z12.11) Active confirmed Problem 055045916 History of adenomatous polyp of colon (Z86.010) Active confirmed Problem 916591462 Abdominal bloati ng (R14.0) Active confirmed Problem Screening for malignant neoplasm of rectum (843132255) Encounter for screening for malignant neoplasm of rectum (Z12.12) Active confirmed Problem 500600045 Gastroesophageal reflux disease without esophagitis (K21.9) Active confirmed Problem 159532269 Barretts esophag us without dysplasia (K22.70) Active confirmed Problem 46161837 Constipation, unspecified constipation type (K59.00) Active confirmed Problem White esophagus (312674057) White esophagus (K22.70) Active confirmed Problem Esophageal reflux finding (251277389) Gastroesophageal reflux (K21.9) Active confirmed Problem 106696087 Irritable bowel syndrome with constipation (K58.1) Active confirmed Problem Diverticulosis of colon (195184339) Diverticulosis of colon (K57.30) Active confirmed Vital Signs Temperature 97.7 degrees Fahrenheit 03/24/2024 Blood pressure diastolic 00 mm Hg 03/24/2024 Height 64 in 03/24/2024 Blood pressure systolic 000 mm Hg 03/24/2024 Weight 153 lb 2 oz lbs 03/24/2024 BMI 26.28 kg/m2 03/24/2024 Encounters Encounter Location Date Provider Diagnosis [facility] [address] [place] [phone] 03/24/2024 Remberto Marte Irritable bowel synd mk with constipation K58.1 ; History of adenomatous polyp of colon Z86.010 ; Gastroesophageal reflux disease without esophagitis K21.9 ; Barretts esophagus without dysplasia K22.70 ; Abdominal bloating R14.0 and Constipation, unspecified constipation type K59.00 [facility] [address] [place] [phone] 08/09/2024 Remberto Marte Assessments Encounter Date Diagnosis (ICD Code) Assessment Notes Treatment Notes Treatment Clinical Notes Section Notes 03/24/2024 History of adenomatous polyp of colon (ICD-10 - Z86.010) Overall, Esther appears well from a clinical standpoint. We did review the findings on her upper endoscopy and colonoscopy from last year and the need for a followup upper endoscopy and colonoscopy in 2027. We did review that her current symptoms are quite consistent with her known history of irritable bowel syndrome that we have followed and discussed over the years. I advised her that improving the constipation would help improve her abdominal symptoms of bloating and cramps. I recommended that she increase Metamucil to twice a day, along with MiraLax at least once or twice a day as well. I did advise her to continue her healthy high-fiber diet with plenty of fluids. I did advise her to stop the daily dicyclomine and just use it p.r.n. for any uncomfortable bloating and cramps in case that is contributing to some constipation. We did review that she may have a component of pelvic floor dysfunction as her symptoms do seem to be worsening as she gets older. Hopefully the symptomatic treatment with more fiber and stool softeners will help with this. If the problem remains significant and worsens we may need to refer her to colorectal surgery group for evaluation of possible pelvic floor dysfunction. I have given her an appointment to see me again later the year but advised her to contact me before that if she has any problems or questions I can be of assistance with. Esther and her were comfortable with this plan. Thank you again for allowing me to participate in Esther's care. I shall continue to keep you advised of her progress. 03/24/2024 Irritable bowel syndrome with constipation (ICD-10 - K58.1) Start using Metamucil twice a day. Add Miralax once or twice a day. Stay on a healthy high fiber diet with a lot of water. Stop the daily dicyclomine and just use as needed for abdominal cramps/discomf ort Repeat upper endo and colonoscopy in 2027 Overall, Esther appears well from a clinical standpoint. We did review the findings on her upper endoscopy and colonoscopy from last year and the need for a followup upper endoscopy and colonoscopy in 2027. We did review that her current symptoms are quite consistent with her known history of irritable bowel syndrome that we have followed and discussed over the years. I advised her that improving the constipation would help improve her abdominal symptoms of bloating and cramps. I recommended that she increase Metamucil to twice a day, along with MiraLax at least once or twice a day as well. I did advise her to continue her healthy high-fiber diet with plenty of fluids. I did advise her to stop the daily dicyclomine and just use it p.r.n. for any uncomfortable bloating and cramps in case that is contributing to some constipation. We did review that she may have a component of pelvic floor dysfunction as her symptoms do seem to be worsening as she gets older. Hopefully the symptomatic treatment with more fiber and stool softeners will help with this. If the problem remains significant and worsens we may need to refer her to colorectal surgery group for evaluation of possible pelvic floor dysfunction. I have given her an appointment to see me again later the year but advised her to contact me before that if she has any problems or questions I can be of assistance with. Esther and her were comfortable with this plan. Thank you again for allowing me to participate in Esther's care. I shall continue to keep you advised of her progress. 03/24/2024 Gastroesophageal reflux disease without esophagitis (ICD-10 - K21.9) Overall, Esther appears well from a clinical standpoint. We did review the findings on her upper endoscopy and colonoscopy from last year and the need for a followup upper endoscopy and colonoscopy in 2027. We did review that her current symptoms are quite consistent with her known history of irritable bowel syndrome that we have followed and discussed over the years. I advised her that improving the constipation would help improve her abdominal symptoms of bloating and cramps. I recommended that she increase Metamucil to twice a day, along with MiraLax at least once or twice a day as well. I did advise her to continue her healthy high-fiber diet with plenty of fluids. I did advise her to stop the daily dicyclomine and just use it p.r.n. for any uncomfortable bloating and cramps in case that is contributing to some constipation. We did review that she may have a component of pelvic floor dysfunction as her symptoms do seem to be worsening as she gets older. Hopefully the symptomatic treatment with more fiber and stool softeners will help with this. If the problem remains significant and worsens we may need to refer her to colorectal surgery group for evaluation of possible pelvic floor dysfunction. I have given her an appointment to see me again later the year but advised her to contact me before that if she has any problems or questions I can be of assistance with. Esther and her were comfortable with this plan. Thank you again for allowing me to participate in Esther's care. I shall continue to keep you advised of her progress. 03/24/2024 Barretts esophagus without dysplasia (ICD-10 - K22.70) Overall, Esther appears well from a clinical standpoint. We did review the findings on her upper endoscopy and colonoscopy from last year and the need for a followup upper endoscopy and colonoscopy in 2027. We did review that her current symptoms are quite consistent with her known history of irritable bowel syndrome that we have followed and discussed over the years. I advised her that improving the constipation would help improve her abdominal symptoms of bloating and cramps. I recommended that she increase Metamucil to twice a day, along with MiraLax at least once or twice a day as well. I did advise her to continue her healthy high-fiber diet with plenty of fluids. I did advise her to stop the daily dicyclomine and just use it p.r.n. for any uncomfortable bloating and cramps in case that is contributing to some constipation. We did review that she may have a component of pelvic floor dysfunction as her symptoms do seem to be worsening as she gets older. Hopefully the symptomatic treatment with more fiber and stool softeners will help with this. If the problem remains significant and worsens we may need to refer her to colorectal surgery group for evaluation of possible pelvic floor dysfunction. I have given her an appointment to see me again later the year but advised her to contact me before that if she has any problems or questions I can be of assistance with. Esther and her were comfortable with this plan. Thank you again for allowing me to participate in Esther's care. I shall continue to keep you advised of her progress. 03/24/2024 Abdominal bloating (ICD-10 - R14.0) Overall, Esther appears well from a clinical standpoint. We did review the findings on her upper endoscopy and colonoscopy from last year and the need for a followup upper endoscopy and colonoscopy in 2027. We did review that her current symptoms are quite consistent with her known history of irritable bowel syndrome that we have followed and discussed over the years. I advised her that improving the constipation would help improve her abdominal symptoms of bloating and cramps. I recommended that she increase Metamucil to twice a day, along with MiraLax at least once or twice a day as well. I did advise her to continue her healthy high-fiber diet with plenty of fluids. I did advise her to stop the daily dicyclomine and just use it p.r.n. for any uncomfortable bloating and cramps in case that is contributing to some constipation. We did review that she may have a component of pelvic floor dysfunction as her symptoms do seem to be worsening as she gets older. Hopefully the symptomatic treatment with more fiber and stool softeners will help with this. If the problem remains significant and worsens we may need to refer her to colorectal surgery group for evaluation of possible pelvic floor dysfunction. I have given her an appointment to see me again later the year but advised her to contact me before that if she has any problems or questions I can be of assistance with. Esther and her were comfortable with this plan. Thank you again for allowing me to participate in Esther's care. I shall continue to keep you advised of her progress. 03/24/2024 Constipation, unspecified constipation type (ICD-10 - K59.00) Overall, Esther appears well from a clinical standpoint. We did review the findings on her upper endoscopy and colonoscopy from last year and the need for a followup upper endoscopy and colonoscopy in 2027. We did review that her current symptoms are quite consistent with her known history of irritable bowel syndrome that we have followed and discussed over the years. I advised her that improving the constipation would help improve her abdominal symptoms of bloating and cramps. I recommended that she increase Metamucil to twice a day, along with MiraLax at least once or twice a day as well. I did advise her to continue her healthy high-fiber diet with plenty of fluids. I did advise her to stop the daily dicyclomine and just use it p.r.n. for any uncomfortable bloating and cramps in case that is contributing to some constipation. We did review that she may have a component of pelvic floor dysfunction as her symptoms do seem to be worsening as she gets older. Hopefully the symptomatic treatment with more fiber and stool softeners will help with this. If the problem remains significant and worsens we may need to refer her to colorectal surgery group for evaluation of possible pelvic floor dysfunction. I have given her an appointment to see me again later the year but advised her to contact me before that if she has any problems or questions I can be of assistance with. Esther and her were comfortable with this plan. Thank you again for allowing me to participate in Esther's care. I shall continue to keep you advised of her progress. Plan Of Treatment Future Test Test Name Order Date UPPER GI ENDOSCOPY 02/09/2015 UPPER GI ENDOSCOPY 01/08/2017 COLONOSCOPY 01/08/2017 UPPER GI ENDOSCOPY 08/20/2022 COLONOSCOPY 08/20/2022 Insurance Providers Payer Name Payer Address Payer Phone Subscriber Number Group Number Insured Name Patient Relationship to Insured Coverage Start Date Coverage End Date [facility] [address] Attn Claims NANCY Mcgovern [id number] ESTHER PAN Self - patient is the insured Medical (General) History Medical History History ICD Code EGD/Colonoscopy 04/24/2011-- [...] tu bular adenoma removed in 2006 at [facility], and a small TA removed in 04/2011 Denies NC,DM,CVA,Lung disease,renal dise ase Depression Positive PPD, but [...]
--- OUTSIDE RECORDS SUMMARY | 2024-12-09 17:04 | XMS_ITS ---
Author Organization [facility] Address [address] [place] [phone] Care Team Providers Care Band Instrument Maker Name Role Phone Jacky GILMAN, Ronak Primary Care Provider Rona Remberto Gramajo Unavailable [phone] REASON FOR VISIT trouble with bowel movements since colonoscopy Encounters Encounter Location Date Provider Diagnosis [facility] [address] [place] [phone] 05/19/2024 Remberto Marte Plan Of Treatment No Information Progress Notes * ZOË PAN NDOB:1960 ( 64 yo F)Acc No.[id number]:05/19/2024 Progress Notes Patient:?ZOË PAN Provider:?Remberto Marte MD :1960???Age:64 Y???Sex:Female D ate:05/19/2024 Address:[address] [place], [place] [phone] Pcp:Ronak Rico MD Subjective: * Chief Complaints: * ???1. Trouble with bowel mov ements since colonoscopy. * Medical History:? Objective: * Vitals:? Assessment: Plan: * Treatment: * * The named appointment provid er may or may not be the originator of this progress note, and it is not deemed complete until electronically signed by the appointment provider. Sign off status: Pending * Provider:?Remberto Marte MD Date:? 024 Generated for Damaris brown/Paola/eTransmitting on:?12/09/2024 05:03 PM EST
--- OUTSIDE RECORDS SUMMARY | 2024-12-09 17:04 | XMS_ITS ---
Author Organization [facility] Address [address] [place] [phone] Care Team Providers Care Forensics Analyst Name Role Phone Ronak Rico MD Primary Care Provider Unavaila Remberto Gramajo Unavailable [phone] REASON FOR VISIT cancel appt on 08/10/2024 Encounters Encounter Location Date Provider Diagnosis [facility] [address] [place] [phone] 08/09/2024 Remberto Marte Plan Of Treatment No Information Progress Notes * VIVIANEZOË NDOB:1960 ( 64 yo F)Acc No.[id number]:08/09/2024 Patient:?ZOË PAN Fela :1960???Age:64 Y???Sex:Female Address:[address] [place] [address] * true * Date:? Generated for Damaris brown/Paola/eTransmitting on:?12/09/2024 05:04 PM EST
--- OUTSIDE RECORDS SUMMARY | 2024-12-09 17:04 | XMS_ITS ---
Author Organization [facility] Address [address] [place] [phone] Care Team Providers Care Gas Transfer Operator Name Role Phone Jacky GILMAN, Ronak Primary Care Provider Remberto Nj Unavailable [phone] REASON FOR VISIT Patient presents today for IBS Encounters Encounter Location Date Provider Diagnosis [facility] [address] [place] [phone] 08/10/2024 Remberto Marte Plan Of Treatment No Information Progress Notes * ZOË PAN NDOB:1960 ( 64 yo F)Acc No.[id number]:08/10/2024 Progress Notes Patient:?ZOË PAN Provider:?Remberto Marte MD :1960???Age:64 Y???Sex:Female D ate:08/10/2024 Address:[address] [place], [place] [phone] Pcp:Ronak Rico MD Subjective: * Chief Complaints: * ???1. Patient presents today for IBS. * Medical History:? Objective: * Vitals:? Assessment: Plan: * Treatment: * * The named appointment provid er may or may not be the originator of this progress note, and it is not deemed complete until electronically signed by the appointment provider. Sign off status: Pending * Provider:?Remberto Marte MD Date:? 024 Generated for Damaris brown/Paola/eTransmitting on:?12/09/2024 05:04 PM EST
== END 2024-12-09 14:36 | disposition home or self-care (01) ==
PROVIDERS: PCP Internal Medicine; Visit Provider Nurse Practitioner Family
DX: R31.29 Other microscopic hematuria (principal); Z87.891 Personal history of nicotine dependence; Z13.9 Encounter for screening, unspecified
CPT/HCPCS: 99203

== ENCOUNTER 2024-12-21 15:53 | Outpatient (REF) | payer MEDICARE, SELFPAY ==
--- NOTE | ~2024-12-21 | CT_ITS ---
CLINICAL HISTORY: R31.29 - Other microscopic hematuria CT abdomen and pelvis with and without contrast Comparison: None Findings: There is a small sliding hiatal hernia. Mild linear atelectasis is seen in bilateral lung bases. Subcentimeter right hepatic hypodensity is too small to characterize. There is fatty atrophy of the pancreatic head. Subcentimeter left renal hypodensity is too small to characterize. There is no evidence of nephrolithiasis or obstructive urolithiasis. The gallbladder, spleen, bilateral adrenal glands, and right kidney appear within normal limits. There is no evidence of bowel obstruction. The appendix appears normal. There is no pneumoperitoneum or ascites. The urinary bladder is partially distended. There is no adenopathy. No acute fracture. IMPRESSION: No evidence of nephrolithiasis or obstructive urolithiasis. This document has been electronically signed by: Hima Kenney on 12/23/2024 08:22:11
[2024-12-21] MEDS: iohexoL 350 MG/ML 75 ML INFUS..BTL 85 ML IV (17:26)
--- OUTSIDE RECORDS SUMMARY | 2024-12-21 18:37 | XMS_ITS | Patient Health Record ---
Author Organization [facility] Address [address] [place] [address] Care Team Providers Care Aviation Mechanic Name Role Phone Ronak Rico MD Primary Care Provider Remberto Nj Unavailable [phone] Allergies No Known Allergies Reason For Referral [...] Problem Status W/U Status Risk Notes Problem 992233869 Encounter for screening for malignant neoplasm of colon (Z12.11) Active confirmed Problem 489001548 History of adenomatous polyp of colon (Z86.010) Active confirmed Problem 246016142 Abdominal bloati ng (R14.0) Active confirmed Problem Screening for malignant neoplasm of rectum (345884776) Encounter for screening for malignant neoplasm of rectum (Z12.12) Active confirmed Problem 519304097 Gastroesophageal reflux disease without esophagitis (K21.9) Active confirmed Problem 919922526 Barretts esophag us without dysplasia (K22.70) Active confirmed Problem 78149347 Constipation, unspecified constipation type (K59.00) Active confirmed Problem White esophagus (313263151) White esophagus (K22.70) Active confirmed Problem Esophageal reflux finding (390412717) Gastroesophageal reflux (K21.9) Active confirmed Problem 891694862 Irritable bowel syndrome with constipation (K58.1) Active confirmed Problem Diverticulosis of colon (344165474) Diverticulosis of colon (K57.30) Active confirmed Vital Signs Temperature 97.7 degrees Fahrenheit 03/24/2024 Blood pressure diastolic 00 mm Hg 03/24/2024 Height 64 in 03/24/2024 Blood pressure systolic 000 mm Hg 03/24/2024 Weight 153 lb 2 oz lbs 03/24/2024 BMI 26.28 kg/m2 03/24/2024 Encounters Encounter Location Date Provider Diagnosis [facility] [address] [place] [address] 03/24/2024 Remberto Marte Irritable bowel synd mk with constipation K58.1 ; History of adenomatous polyp of colon Z86.010 ; Gastroesophageal reflux disease without esophagitis K21.9 ; Barretts esophagus without dysplasia K22.70 ; Abdominal bloating R14.0 and Constipation, unspecified constipation type K59.00 [facility] [address] [place] [phone] 08/09/2024 Remberto Marte Assessments Encounter Date Diagnosis [...] Insured Coverage Start Date Coverage End Date [facility] [address] Attn Claims NANCY Mcgovern [id number] ESTHER PAN Self - patient is the [...] tu bular adenoma removed in 2006 at [facility], and a small TA removed in 04/2011 Denies SC,DM,CVA,Lung disease,renal dise ase Depression Positive PPD, but [...]
--- OUTSIDE RECORDS SUMMARY | 2024-12-21 18:38 | XMS_ITS ---
Author Organization [facility] Address [address] [place] [phone] Care Team Providers Care Clinical Reviewer Name Role Phone Ronak Rico MD Primary Care Provider Unavaila Remberto Gramajo Unavailable [phone] REASON FOR VISIT cancel appt on 08/10/2024 Encounters Encounter Location Date Provider Diagnosis [facility] [address] [place] [phone] 08/09/2024 Remberto Marte Plan Of Treatment No Information Progress Notes * VIVIANEZOË NDOB:1960 ( 64 yo F)Acc No.[id number]:08/09/2024 Patient:?ZOË PAN Fela :1960???Age:64 Y???Sex:Female Address:[address] [place] [address] * true * Date:? Generated for Damaris brown/Paola/eTransmitting on:?12/21/2024 06:37 PM EDT
--- OUTSIDE RECORDS SUMMARY | 2024-12-21 18:38 | XMS_ITS | Encounter Summary ---
Author Organization [employer] Address [address] [place] [address] [address] [place] [address] Care Team Providers Care Operator Engineer Name Role Phone Unavailable Primary Care Provider Unavailabl e Encounter Details Date Type Department Care Team (Latest Contact Info) Description 02/09/2019 Abstract [facility] CONVERSIONS Dental, Provider, DDS Social History [...]
--- OUTSIDE RECORDS SUMMARY | 2024-12-21 18:38 | XMS_ITS | Clinical Summary ---
Author Organization [employer] Address [address] [place] [address] [address] [place] [address] Care Team Providers Care Cma Or Lpn Name Role Phone Unavailable Primary Care Provider [...] Most Recently Relevant to Health Maintenance [place] [address] [address]
--- OUTSIDE RECORDS SUMMARY | 2024-12-21 18:38 | XMS_ITS ---
Author Organization [facility] Address [address] [place] [address] Care Team Providers Care Hvac Estimator Name Role Phone Jacky GILMAN, Ronak Primary Care Provider Remberto Nj Unavailable [phone] REASON FOR VISIT Patient presents today for IBS Encounters Encounter Location Date Provider Diagnosis [facility] [address] [place] [phone] 08/10/2024 Remberto Marte Plan Of Treatment No Information Progress Notes * ZOË PAN NDOB:1960 ( 64 yo F)Acc No.[id number]:08/10/2024 Progress Notes Patient:?ZOË PAN Provider:?Remberto Marte MD :1960???Age:64 Y???Sex:Female D ate:08/10/2024 Address:[address] [place], [place] [phone] Pcp:Ronak Rico MD Subjective: * Chief Complaints: [...] MD Date:? 024 Generated for Damaris brown/Paola/eTransmitting on:?12/21/2024 06:37 PM EDT
--- OUTSIDE RECORDS SUMMARY | 2024-12-21 18:38 | XMS_ITS ---
Author Organization [facility] Address [address] [place] [phone] Care Team Providers Care Dump Motorman Name Role Phone Jacky GILMAN, Ronak Primary Care Provider Remberto Nj Unavailable [phone] REASON FOR VISIT trouble with bowel movements since colonoscopy Encounters Encounter Location Date Provider Diagnosis [facility] [address] [place] [phone] 05/19/2024 Remberto Marte Plan Of Treatment No Information Progress Notes * ZOË PAN NDOB:1960 ( 64 yo F)Acc No.[id number]:05/19/2024 Progress Notes Patient:?ZOË PAN Provider:?Remberto Marte MD :1960???Age:64 Y???Sex:Female D ate:05/19/2024 Address:[address] [place], [place] [id number] Pcp:Ronak Rico MD Subjective: * Chief Complaints: [...] Provider:?Remberto Marte MD Date:? 024 Generated for Alisai stephanie/Christopherg/eTransmitting on:?12/21/2024 06:37 PM EDT
[2024-12-22 09:23] LABS: Creatinine POC 1.1 mg/dL (0.5-1.4); GFR POC 55
== END 2024-12-21 15:54 | disposition home or self-care (01) ==
LOC: HO.CT 15:53
PROVIDERS: PCP Internal Medicine; Visit Provider Obstetrics & Gynecology
DX: R31.29 Other microscopic hematuria (principal)
CPT/HCPCS: 74178; 82565; Q9967

== ENCOUNTER → 2024-12-21 15:56 | Outpatient (BNV) | payer MEDICARE, SELFPAY | PROVIDERS: PCP Internal Medicine; Visit Provider Radiology Vascular & Interventional Radiology | DX: R31.29 Other microscopic hematuria (principal) | CPT/HCPCS: 74178 ==

== ENCOUNTER → 2025-02-15 09:45 | Outpatient (BNV) | payer MEDICARE, SELFPAY | PROVIDERS: PCP Internal Medicine; Visit Provider Internal Medicine | DX: Z12.31 Encounter for screening mammogram for malignant neoplasm of breast (principal) | CPT/HCPCS: 77063; 77067 ==

== ENCOUNTER 2025-02-15 09:46 | Outpatient (REF) | payer MEDICARE, SELFPAY ==
--- OUTSIDE RECORDS SUMMARY | 2025-02-15 10:30 | XMS_ITS | Patient Health Record ---
Author Organization [facility] Address [address] [place] [phone] Care Team Providers Care Housecleaner Name Role Phone Ronak Rico MD Primary Care Provider Remberto Nj Unavailable [phone] Allergies No Known Allergies Reason For Referral [...] Problem Status W/U Status Risk Notes Problem 330108785 Encounter for screening for malignant neoplasm of colon (Z12.11) Active confirmed Problem 916963685 History of adenomatous polyp of colon (Z86.010) Active confirmed Problem 490023084 Abdominal bloati ng (R14.0) Active confirmed Problem Screening for malignant neoplasm of rectum (943883044) Encounter for screening for malignant neoplasm of rectum (Z12.12) Active confirmed Problem 835561247 Gastroesophageal reflux disease without esophagitis (K21.9) Active confirmed Problem 690316127 Barretts esophag us without dysplasia (K22.70) Active confirmed Problem 10902983 Constipation, unspecified constipation type (K59.00) Active confirmed Problem White esophagus (102252635) White esophagus (K22.70) Active confirmed Problem Esophageal reflux finding (826253490) Gastroesophageal reflux (K21.9) Active confirmed Problem 257369406 Irritable bowel syndrome with constipation (K58.1) Active confirmed Problem Diverticulosis of colon (737768350) Diverticulosis of colon (K57.30) Active confirmed Vital Signs Temperature 97.7 degrees Fahrenheit 03/24/2024 Blood pressure diastolic 00 mm Hg 03/24/2024 Height 64 in 03/24/2024 Blood pressure systolic 000 mm Hg 03/24/2024 Weight 153 lb 2 oz lbs 03/24/2024 BMI 26.28 kg/m2 03/24/2024 Encounters Encounter Location Date Provider Diagnosis [facility] [address] [place] [phone] 03/24/2024 Remberto Marte Irritable bowel synd mk with constipation K58.1 ; History of adenomatous polyp of colon Z86.010 ; Gastroesophageal reflux disease without esophagitis K21.9 ; Barretts esophagus without dysplasia K22.70 ; Abdominal bloating R14.0 and Constipation, unspecified constipation type K59.00 [facility] [address] [place] [phone] 08/09/2024 Remberto Marte Assessments Encounter Date Diagnosis [...] Insured Coverage Start Date Coverage End Date [facility] [address] Attn Claims NANCY Mcgovern [id number] ESTHER PAN Self - patient is the [...] bular adenoma removed in 2006 at [facility], and a small TA removed in 04/2011 Denies [place],DM,CVA,Lung disease,renal dise ase Depression Positive PPD, but [...]
--- OUTSIDE RECORDS SUMMARY | 2025-02-15 10:30 | XMS_ITS ---
Author Organization [facility] Address [address] [place] [address] Care Team Providers Care Plug Paster Name Role Phone Jacky GILMAN, Ronak Primary Care Provider Remberto Nj Unavailable [phone] REASON FOR VISIT trouble with bowel movements since colonoscopy Encounters Encounter Location Date Provider Diagnosis [facility] [address] [place] [phone] 05/19/2024 Remberto Marte Plan Of Treatment No Information Progress Notes * ZOË PAN NDOB:1960 ( 64 yo F)Acc No.[id number]:05/19/2024 Progress Notes Patient:?ZOË PAN Provider:?Remberto Marte MD :1960???Age:64 Y???Sex:Female D ate:05/19/2024 Address:[address] [place], [place] [phone] Pcp:Ronak Rico MD Subjective: * Chief Complaints: [...] Marte MD Date:? 024 Generated for Alisai stephanie/Paola/eTransmitting on:?02/15/2025 10:30 AM EDT
--- OUTSIDE RECORDS SUMMARY | 2025-02-15 10:31 | XMS_ITS | Encounter Summary ---
Author Organization [facility] Address [address] [place] [address] Care Team Providers Care Sawmill Moulder Operator Name Role Phone Unavailable Primary Care Provider Unavailabl e Encounter Details Date Type Department Care Team (Latest Contact Info) Description 02/09/[address] [facility] CONVERSIONS Dental, Provider, DDS Social History Tobacco [...]
--- OUTSIDE RECORDS SUMMARY | 2025-02-15 10:31 | XMS_ITS ---
Author Organization [facility] Address [address] [place] [phone] Care Team Providers Care Risk Engineer Name Role Phone Jacky GILMAN, Ronak Primary Care Provider Remberto Nj Unavailable [phone] REASON FOR VISIT Patient presents today for IBS Encounters Encounter Location Date Provider Diagnosis [facility] [address] [place] [phone] 08/10/2024 Remberto Marte Plan Of Treatment No Information Progress Notes * ZOË PAN NDOB:1960 ( 64 yo F)Acc No.[id number]:08/10/2024 Progress Notes Patient:?ZOË PAN Provider:?Remberto Marte MD :1960???Age:64 Y???Sex:Female D ate:08/10/2024 Address:[address] [place], [place] [phone] Pcp:Ronak Rico MD Subjective: * Chief Complaints: [...] MD Date:? 024 Generated for Damaris brown/Paola/eTransmitting on:?02/15/2025 10:30 AM EDT
--- OUTSIDE RECORDS SUMMARY | 2025-02-15 10:31 | XMS_ITS ---
Author Organization [facility] Address [address] [place] [address] Care Team Providers Care Engineering Production Worker Name Role Phone Ronak Rico MD Primary Care Provider Unavaila Remberto Gramajo Unavailable [phone] REASON FOR VISIT cancel appt on 08/10/2024 Encounters Encounter Location Date Provider Diagnosis [facility] [address] [place] [phone] 08/09/2024 Remberto Marte Plan Of Treatment No Information Progress Notes * VIVIANEZOË NDOB:1960 ( 64 yo F)Acc No.[id number]:08/09/2024 Patient:?ZOË PAN Fela :1960???Age:64 Y???Sex:Female Address:[address] [place] [phone] * true * Date:? Generated for Damaris brown/Paola/eTransmitting on:?02/15/2025 10:30 AM EDT
--- OUTSIDE RECORDS SUMMARY | 2025-02-15 10:31 | XMS_ITS | Clinical Summary ---
Author Organization [facility] Address [address] [place] [address] 7t [place] [address] Care Team Providers Care Board Mill Supervisor Name Role Phone Unavailable Primary Care Provider [...] Additional history exists Dental X-Ray: [facility]ings 02/26/2024 02/25/20, 02/09/2019, 02/09/2019, Additional history exists Tobacco Screening [...] Most Recently Relevant to Health Maintenance [place] [address] [place] [address]
== END 2025-02-15 09:47 | disposition home or self-care (01) ==
LOC: HO.MAMMO 09:46
PROVIDERS: PCP Internal Medicine; Visit Provider Internal Medicine
DX: Z12.31 Encounter for screening mammogram for malignant neoplasm of breast (principal)
CPT/HCPCS: 77063; 77067

== ENCOUNTER 2025-03-07 15:12 | Outpatient (AMB) | payer MEDICARE, SELFPAY ==
--- NOTE | 2025-03-07 15:25 | A.OFFVIS_ITS ---
Intake Visit Reasons: 3m/CT(set) Intake Note: New patient presents today for initial visit for microscopic hematuria Urology Medication:none Blood Thinner: none Antibiotic Allergies: none Accompanied by: Self / Same As Patient Allergies No Known Allergies [No Known Allergies*] Allergy (Verified 03/07/25 16:23) Medication List - Last Reconciled 03/07/25 by EVE Swenson calcium carbonate-vitamin D3 600 mg-20 mcg (800 unit) (Caltrate with Vitamin D3) 1 tab PO DAILY dicyclomine 10 mg PO BID PRN duloxetine 60 mg PO DAILY melatonin 3 mg PO BEDTIME multivitamin 1 tab PO DAILY triamcinolone acetonide 0.1% 1 appl topical BID HPI Comments Details: Esther is a very pleasant 64-year-old female patient of Dr. Rico who was accompanied by her significant other Jacob at todays office visit. She has a past medical history of osteoarthritis, anxiety, IBS, depression, GERD, and polyarthralgia. She presents to the office today for follow-up of her microscopic hematuria. Of note, patient was seen approximately 2 months ago as a new patient for microscopic hematuria at which time a CT urogram was already scheduled to be performed and her urine was sent out for cytology. These results were reviewed and communicated with the patient and her today. 12/28 subcentimeter left renal hypodensity is too small to characterize. There is no evidence of nephrolithiasis or obstructive urolithiasis. The urinary bladder is partially distended. There is no adenopathy. Urine cytology 12/28 Negative for high-grade urothelial carcinoma. She does have a history of previous nicotine dependence for over 20 years however quit approximately 18 years ago. She reports smoking no more than 5 cigarettes per day when she was smoking. She currently denies any bothersome urinary issues. She denies urinary urgency, urinary frequency, incontinence, nocturia, hematuria, dysuria, foul smelling urine, changes to urinary stream, flank pain, fever, and or chills. She is happy with her current voiding parameters. In office urinalysis results reviewed with the patient today 1+ microscopic hematuria otherwise within normal limits. Previous urinalysis noted 2+ microscopic hematuria. We did discussed potential causes of microscopic hematuria as well as further workup to include cystoscopy versus surveillance monitoring. Risks and benefits of these interventions were discussed. We will continue with surveillance monitoring at this time. All questions were answered. She otherwise offers no other issues or concerns at this time. [facility] Medical History Osteoarthritis, hand Anxiety IBS (irritable bowel syndrome) Depression White esophagus GERD (gastroesophageal reflux disease) Polyarthralgia Surgical History H/O esophagogastroduodenoscopy H/O colonoscopy History of tonsillectomy History of unilateral oophorectomy Family History Mother No problems noted. Father No problems noted. 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 Cognitive needs: No Hearing needs: No Vision needs: Yes Review of Systems Const All systems reviewed & are unremarkable except as noted in HPI and below Physical Exam Const General: cooperative, healthy appearing, comfortable, no acute distress, well developed, alert and awake Orientation/consciousness: patient oriented x3 Limitations: no limitations HEENT Head: Yes normal to inspection, Yes normocephalic and Yes atraumatic Ears: hearing grossly normal bilaterally Eyes General: appearance normal, both eyes and all related structures Neck Neck: Yes normal visual inspection and Yes trachea midline Chest Chest palpation & inspection: normal inspection of the chest Resp Effort & Inspection: normal respiratory effort and able to speak in complete sentences Cardio Rate: regular rate GI Inspection: Yes normal to inspection General: Yes no CVA tenderness Back/Spine/Pelvis Back: no CVA tenderness Skin General skin exam: no rashes or lesions noted Neuro General: patient oriented x3 Extrem General: Yes normal to inspection Psych Appearance: grossly normal and well kempt Mental Status: mental status grossly normal Speech and movement: Normal speech and movement present and Clear speech present Affect: normal affect Attitude: cooperative Thought process: Normal thought process present Thought content: Normal thought content present Insight: Fair insight present (Psych) Judgement: Fair judgement present (Psych) Results AMB Urinalysis, Automated UA Leukoctes 0 Agatha/uL Last Edit by Qamar Ventura on 03/07/25 15:38 UA Nitrite Negative Last Edit by Qamar Betancuriel on 03/07/25 15:38 UA Urobilinogen 0.2 mg/dL Last Edit by Qamar Betancuriel on 03/07/25 15:38 UA Protein 0 mg/dL Last Edit by Qamar Betancuriel on 03/07/25 15:38 UA pH 6.0 Last Edit by Qamar Audrey on 03/07/25 15:38 UA Blood 25 Jesu/uL Last Edit by Qamar Betancuriel on 03/07/25 15:38 UA Specific [place] 1.015 Last Edit by Qamar Betancuriel on 03/07/25 15:38 UA Ketone Negative Last Edit by Qamar Betancuriel on 03/07/25 15:38 UA Bilirubin 0 mg/dL Last Edit by Qamar Betancuriel on 03/07/25 15:38 UA Glucose 0 mg/dL Last Edit by Qamar Ventura on 03/07/25 15:38 Results Reviewed Results Reviewed: Laboratory Last Values Urine pH (Auto) 6.0 03/07/25 15:35 Specific [place] (Auto) 1.015 03/07/25 15:35 Urine Protein (Auto) 0 mg/dL 03/07/25 15:35 Glucose (UA)(Auto) 0 mg/dL 03/07/25 15:35 Urine Ketones (Auto) Negative 03/07/25 15:35 Urine Blood (Auto) 25 Jesu/uL 03/07/25 15:35 Urine Nitrite (Auto) Negative 03/07/25 15:35 Urine Bilirubin (Auto) 0 mg/dL 03/07/25 15:35 Urine Urobilinogen (Auto) 0.2 mg/dL 03/07/25 15:35 Leukocyte Esterase (Auto) 0 Agatha/uL 03/07/25 15:35 Date of Service: 12/21/24 Procedure(s): CT abdomen pelvis wo/w IV con Findings: There is a small sliding hiatal hernia. Mild linear atelectasis is seen in bilateral lung bases. Subcentimeter right hepatic hypodensity is too small to characterize. There is fatty atrophy of the pancreatic head. Subcentimeter left renal hypodensity is too small to characterize. There is no evidence of nephrolithiasis or obstructive urolithiasis. The gallbladder, spleen, bilateral adrenal glands, and right kidney appear within normal limits. There is no evidence of bowel obstruction. The appendix appears normal. There is no pneumoperitoneum or ascites. The urinary bladder is partially distended. There is no adenopathy. No acute fracture. IMPRESSION: No evidence of nephrolithiasis or obstructive urolithiasis. Assessment & Plan Assessment & Plan (1) History of nicotine dependence: Code(s): Z87.891 - Personal history of nicotine dependence Category: Medical (2) Microscopic hematuria: Code(s): R31.29 - Other microscopic hematuria Category: Medical (3) Renal cyst: Code(s): N28.1 - Cyst of kidney, acquired Category: Medical Plan In office urinalysis results reviewed with the patient today; as noted above; wi ll send for urine cytology. Recent CT urogram results reviewed with the patient and her significant other today; as noted above. We discussed potential causes of microscopic hematuria as well as further workup to include cystoscopy versus surveillance monitoring; risks and benefits of these interventions were discussed. She currently denies any bothersome urinary issues or concerns. She reports be happy with current voiding parameters. Previous urine cytology results reviewed with the patient today; as noted above. Will continue with surveillance monitoring. Follow-up in 6 months; or sooner with any issues, concerns, and or questions. Orders: Orders AMB Urinalysis Automated 03/07/25 Z13.9 - Encounter for screening, unspecified Urine Cytology 03/07/25 R31.29 - Other microscopic hematuria Patient Instructions: The patient had an opportunity to ask questions regarding the treatment plan. All questions were answered. Physical exam, labs, and imaging were discussed and reviewed in detail. As well as risks, benefits, and discussion of treatment choices. No major barriers to understanding were identified. The patient expressed understanding and agreement with the above treatment plan. The patient was made aware they should contact our office by phone for worsening of their current condition, the appearance of new symptoms, or with any questions or concerns. Compliance is encouraged with any medications and follow up testing that is ordered. It is a privilege to be allowed the opportunity to participate in? your urological care.? Again, if you have any questions or concerns If you have any questions or concerns please do not hesitate to contact me. The office is [phone]. This note is constructed using voice recognition software. While every effort has been made to ensure accuracy exceptional children's teacher errors may have been included. Yours sincerely, HASMUKH Swenson-ZULLY Coding Level of Care Code Est Pt Level 3 (20670) Complex EM visit Add On G2211 Diagnoses History of nicotine dependence Z87.891 Microscopic hematuria R31.29 Renal cyst N28.1
--- OUTSIDE RECORDS SUMMARY | 2025-03-07 16:27 | XMS_ITS | Patient Health Record ---
Author Organization [facility] Address [address] [place] [address] Care Team Providers Care School Janitor Name Role Phone Ronak Rico MD Primary Care Provider Remberto Nj Unavailable [phone] Allergies No Known Allergies Reason For Referral [...] Problem Status W/U Status Risk Notes Problem 640566145 Encounter for screening for malignant neoplasm of colon (Z12.11) Active confirmed Problem 402537540 History of adenomatous polyp of colon (Z86.010) Active confirmed Problem 048785626 Abdominal bloati ng (R14.0) Active confirmed Problem Screening for malignant neoplasm of rectum (030553050) Encounter for screening for malignant neoplasm of rectum (Z12.12) Active confirmed Problem 763744964 Gastroesophageal reflux disease without esophagitis (K21.9) Active confirmed Problem 942496554 Barretts esophag us without dysplasia (K22.70) Active confirmed Problem 86229547 Constipation, unspecified constipation type (K59.00) Active confirmed Problem White esophagus (105604913) White esophagus (K22.70) Active confirmed Problem Esophageal reflux finding (722058823) Gastroesophageal reflux (K21.9) Active confirmed Problem 650623347 Irritable bowel syndrome with constipation (K58.1) Active confirmed Problem Diverticulosis of colon (231621490) Diverticulosis of colon (K57.30) Active confirmed Vital Signs Temperature 97.7 degrees Fahrenheit 03/24/2024 Blood pressure diastolic 00 mm Hg 03/24/2024 Height 64 in 03/24/2024 Blood pressure systolic 000 mm Hg 03/24/2024 Weight 153 lb 2 oz lbs 03/24/2024 BMI 26.28 kg/m2 03/24/2024 Encounters Encounter Location Date Provider Diagnosis [facility] [address] [place] [phone] 03/24/2024 Remberto Marte Irritable bowel synd mk with constipation K58.1 ; History of adenomatous polyp of colon Z86.010 ; Gastroesophageal reflux disease without esophagitis K21.9 ; Barretts esophagus without dysplasia K22.70 ; Abdominal bloating R14.0 and Constipation, unspecified constipation type K59.00 [facility] [address] [place] [phone] 08/09/2024 Remberto Marte Assessments Encounter Date Diagnosis [...] Insured Coverage Start Date Coverage End Date [facility] [address] Attn Claims NANCY Mcgovern [id number] ESTHER PAN Self - patient is the [...] tu bular adenoma removed in 2006 at [facility], and a small TA removed in 04/2011 Denies [place],DM,CVA,Lung disease,renal dise ase Depression Positive PPD, but [...]
== END 2025-03-07 15:54 | disposition home or self-care (01) ==
LOC: HO.HUSH 15:13
PROVIDERS: PCP Internal Medicine; Visit Provider Nurse Practitioner Family
DX: Z13.9 Encounter for screening, unspecified (principal)

== ENCOUNTER 2025-03-07 15:12 | Outpatient (REF) | payer MEDICARE, SELFPAY ==
[2025-03-07 16:42] LABS: Urine Cytology See Pathology rpt
== END 2025-03-07 15:13 | disposition home or self-care (01) ==
LOC: HO.LNP 15:12
PROVIDERS: PCP Internal Medicine; Visit Provider Nurse Practitioner Family
DX: R31.29 Other microscopic hematuria (principal); Z87.891 Personal history of nicotine dependence; N28.1 Cyst of kidney, acquired
CPT/HCPCS: 81003; 88112; 99212

== ENCOUNTER 2025-03-09 11:20 | Outpatient (REF) | payer MEDICARE, SELFPAY ==
--- NOTE | 2025-03-09 12:43 | ECG_ITS ---
Test Reason : PALPITATIONS Blood Pressure : */* mmHG Vent. Rate : 44 BPM Atrial Rate : 44 BPM P-R Int : 154 ms QRS Dur : 70 ms QT Int : 464 ms P-R-T Axes : 44 -29 -15 degrees QTcB Int : 396 ms Marked sinus bradycardia Low voltage QRS Abnormal ECG When compared with ECG of 04-Jun-2018 10:42, No significant change was found Referred By: Luann Cuevas Electronically Signed By: JOECLYN DESAI
[2025-03-09 12:57] LABS: MANUAL DIFF FLAG NO
[2025-03-09 13:56] LABS: Basophils Absolute Auto 0.1 X10*3/uL (0.0-0.2); Basophils Percent Auto 0.8 % (0-2); Eosinophils Absolute Auto 0.2 X10*3/uL (0.0-0.4); Eosinophils Percent Auto 2.1 % (0-4); Hematocrit 43.1 % (37.0-47.0); Hemoglobin 13.6 g/dl (12.0-16.0); Imm Gran Abs Auto 0.02 X10*3/uL (0.00-0.03); Imm Gran Pct Auto 0.3 % (0.0-0.4); Lymphocytes Absolute Auto 3.3 X10*3/uL (1.2-4.9); Lymphocytes Percent Auto 41.6 % (20-40); Mean Corpuscular HGB Conc 31.6 g/dl (31.0-35.0); Mean Corpuscular Hemoglobin 26.5 pg (27.0-33.0); Mean Corpuscular Volume 83.9 fL (80.0-98.0); Mean Platelet Volume 10.3 fL (9.4-12.3); Monocytes Absolute Auto 0.7 X10*3/uL (0.1-1.2); Monocytes Percent Auto 9.3 % (2-11); Neutrophils Absolute Auto 3.7 x10*3/uL (2.0-8.3); Neutrophils Percent Auto 45.9 % (45-73); Platelet Count 220 X10*3/uL (160-400); Red Blood Count 5.14 X10*6/uL (4.20-5.50); Red Cell Distribution Width 14.2 % (11.0-16.0)
[2025-03-09 14:31] LABS: Erythrocyte Sedimentation Rate 7 MM/HR (0-20)
[2025-03-09 14:59] LABS: Alanine Aminotransferase 15 U/L (0-31); Albumin Level 3.9 g/dL (3.5-5.0); Alkaline Phosphatase 60 U/L (39-117); Anion Gap 9 (12-20); Aspartate Amino Transferase 20 U/L (5-31); Bilirubin Total 0.6 mg/dL (0.0-1.0); Blood Urea Nitrogen 21 mg/dL (9-16); C Reactive Protein 0.37 mg/dL (< or = 0.50); Calcium 9.6 mg/dL (8.4-10.2); Carbon Dioxide 27 mmol/L (22-29); Chloride 109 mmol/L (96-108); Estimated Glomerular Filt Rate 50; Glucose Random 81 mg/dL (60-115); Potassium 4.6 mmol/L (3.3-5.1); Sodium 140 mmol/L (135-145); Total Protein 6.7 g/dL (6.5-8.0)
== END 2025-03-09 11:21 | disposition home or self-care (01) ==
LOC: HO.LAB 11:20
DX: R41.3 Other amnesia (principal); R20.0 Anesthesia of skin; R00.2 Palpitations; R61 Generalized hyperhidrosis; Z00.00 Encounter for general adult medical examination without abnormal findings; R31.29 Other microscopic hematuria
CPT/HCPCS: 36415; 80053; 85025; 85652; 86140; 93005; 96127; 99212

== ENCOUNTER 2025-03-09 11:20 | Outpatient (AMB) | payer MEDICARE, SELFPAY ==
--- NOTE | 2025-03-09 11:22 | MHC.PC.OV ---
Vital Signs 03/09/25 11:23 03/09/25 11:55 Height 5 ft 6 in Weight 155 lb 4 oz BMI 25.1 BP 88/58 L 110/60 Blood Pressure Location Lt brachial Lt brachial Position Sitting Sitting Pulse 47 L 54 Pulse Source Pulse Oximeter Pulse Oximeter Pulse Oximetry (%) 98 Oxygen Delivery Method Room Air Intake Visit Reasons: numbness/tingling in extremities. 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 Accompanied by: Self / Same As Patient Allergies No Known Allergies [No Known Allergies*] Allergy (Verified 03/09/25 11:43) Medication List - Last Reconciled 03/09/25 by Luann Cuevas PA-C calcium carbonate-vitamin D3 600 mg-20 mcg (800 unit) (Caltrate with Vitamin D3) 1 tab PO DAILY dicyclomine 10 mg PO BID PRN duloxetine 60 mg PO DAILY melatonin 3 mg PO BEDTIME multivitamin 1 tab PO DAILY triamcinolone acetonide 0.1% 1 appl topical BID Tobacco use date assessed: 03/09/25 Fall risk assessment: 1 Fall in past year Last assessed Fall Risk: 03/09/25 Dental Screening Dental Screen Date: 03/09/25 Did you have a dental visit in the last 12 months?: No Did you have a dental problem in the last 6 months where you did not have access to dental care?: No Was dental information given to patient?: No HPI numbness/tingling in extremities. HPI Details [age] with past medical history of fibromyalgia and osteopenia last seen by Dr. Rico 03/2024 coming in for acute problem Presenting with new-onset paresthesia and other neurological symptoms. Tingling and numbness began in the hands three weeks ago and progressed to the feet and left side, becoming severe over the last few days. Reports nocturnal palpitations, described as a pounding or shaking sensation. Difficulty with memory, including recalling names and experiencing disorientation, has recently developed. Reports muscle weakness affecting both hands. Recent onset of night sweats without fever noted starting three days ago, alongside increased day sweating without fevers. [facility] Medical History Osteoarthritis, hand Anxiety IBS (irritable bowel syndrome) Depression White esophagus GERD (gastroesophageal reflux disease) Polyarthralgia Surgical History H/O esophagogastroduodenoscopy H/O colonoscopy History of tonsillectomy History of unilateral oophorectomy Family History Mother No problems noted. Father No problems noted. 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 1. Little interest or pleasure in doing things: several days 2. Feeling down, depressed, or hopeless: several days 3. Trouble falling or staying asleep, or sleeping too much: several days 4. Feeling tired or having little energy: several days 5. Poor appetite or overeating: several days 6. Feeling bad about yourself - or that you are a failure or have let yourself or your family down: several days 7. Trouble concentrating on things, such as reading the newspaper or watching television: several days 8. Moving or speaking so slowly that other people could have noticed. Or the opposite - being so fidgety or restless that you have been moving around a lot more than usual: several days 9. Thoughts that you would be better off or of hurting yourself in some way: several days Total score: 9 Depression Screening Interpretation: Positive Depression Screening Done: Yes 01590 - PHQ-9 Billing: Yes Source: Developed by Drs. Remberto Miles, Nargis Gilmore, Mark Zelaya and colleagues, with an educational odalys from [employer]. Thrive Questionnaire Date Thrive assessed: 03/09/25 I am a: Patient What is your living situation today?: I have a steady place to live Within the past 12 months, did the food you bought not last and you didn't have the money to get more?: Never true Within the past 12 months, did you worry whether your food would run out before you got money to buy more?: Never true Do you have trouble paying for medicines?: No Do you have trouble getting transportation to medical appointments?: No Do you have trouble paying your heating and electricity bill?: No Do you have trouble taking care of your child, family member or friend?: No Do you have trouble with day-to-day activities such as bathing, preparing meals, shopping, managing finances, etc.?: No Are you currently unemployed and looking for a job?: No Are you interested in more education?: No Please select the resources that you would like help with: None THRIVE Score: 0 AUDIT C Alcohol Use Questionnaire (AUDIT-C) 1. How often do you have a drink containing alcohol?: Never 3. How often do you have six or more drinks on one occasion?: Never Total Score: 0 Score Reviewed/Action Taken: Yes HEIDI-7 AMB Questionnaire HEIDI-7 Date HEIDI - 7 assessed: 03/09/25 Feeling nervous, anxious, or on edge: 1 = Several days Not being able to stop or control worryin = Several days Worrying too much about different things: 1 = Several days Trouble relaxin = Several days Being so restless that it is hard to sit still: 1 = Several days Becoming easily annoyed or irritable: 1 = Several days Feeling afraid as if something awful might happen: 1 = Several days Total HEIDI-7 score (0-4 normal; 5-9 mild; 10-14 moderate; 15-21 severe): 7 Source: Developed by Drs. Remberto Miles, Nargis Gilmore, Mark Zelaya and colleagues, with an educational odalys from [employer]. Review of Systems Const Denies body aches, Denies chills, Denies fever(s), Reports headache(s), Reports night sweats and Denies poor appetite Eyes Reports no additional complaints ENT Denies dysphagia, Denies dizziness, Reports headache(s) and Denies odynophagia Card Denies chest pain, Denies syncope, Denies edema, Denies irregular heart rhythm, Denies lightheadedness, Reports palpitations and Denies dyspnea Resp Denies cough and Denies dyspnea GI Denies dysphagia, Denies nausea, Denies odynophagia and Denies vomiting Reports no additional complaints Musc Reports no additional complaints and Denies abnormal gait Skin/Breast Reports system reviewed and no additional complaints, except as documented Neuro Reports as per HPI, Denies abnormal gait, Denies dizziness, Denies syncope and Reports headache(s) Psych Reports no additional complaints Endo Reports palpitations Physical exam (Primary Care) Vital Signs: Last Vital Signs Pulse 54 03/09/25 11:55 BP 110/60 03/09/25 11:55 Pulse Ox 98 03/09/25 11:23 Oxygen Delivery Method Room Air 03/09/25 11:23 BMI result Body Mass Index 25.1 Tobacco/Smoking Status: Tobacco use Status Tobacco use date assessed 03/09/25 03/09/25 11:33 Patient Tobacco Use Status Former Tobacco user 03/09/25 11:33 e-Cigarette/Vaping Use Never Used 03/09/25 11:33 PHQ-9: PHQ-9 Score PHQ-9: Total score 9 03/09/25 11:43 Depression Screening Interpretation: Positive Thrive Assessment: Date of Thrive Assessment Date Thrive assessed 03/09/25 03/09/25 11:33 Const General: cooperative, healthy appearing, comfortable and no acute distress Orientation/consciousness: patient oriented x3 HENMT Head: Yes normocephalic Ears: hearing grossly normal bilaterally General nose exam: Normal external nose present Eyes General: appearance normal, both eyes and all related structures Conjunctivae: conjunctivae normal Pupils: Equal, round and reactive pupils present Neck Neck: Yes full ROM and Yes no lymphadenopathy Resp Effort & Inspection: normal respiratory effort Auscultation: clear to auscultation bilaterally, no crackles, no rales, no rhonchi and no wheezes Cardio Rate: regular rate Rhythm: regular rhythm Skin General skin exam: no rashes or lesions noted Neuro General: patient oriented x3 Cranial nerves: Yes CN's II-XII intact bilaterally, Yes Facial sensation intact/muscles of mastication intact, Yes Equal, round and reactive pupils present, Yes Normal accommodation reflex present, Yes Bilaterally intact EOM present, Yes Nystagmus not present, Yes Normal facial strength present, Yes Midline tongue present and Yes Ability to bilaterally elevate shoulders present Cognition (Neuro): normal cognition Gait exam (Neuro): Normal gait present Motor exam (neuro): 5/5 motor strength present throughout and Pronator motor function not present Coordination: [id number] test normal Extrem General: Yes normal to inspection, Yes full ROM and No edema Psych Affect: normal affect Attitude: cooperative Insight: Good insight present (Psych) Judgement: Good judgement present (Psych) Coding Level of Care Code Est Pt Level 4 (57075) Diagnoses Memory impairment R41.3 Numbness of left hand R20.0 Numbness of left foot R20.0 Pounding heartbeat R00.2 Night sweats R61 Additional Codes PHQ-9 - 65846 - PHQ-9 Billing: Yes ([id number]) Assessment & Plan Assessment & Plan (1) Memory impairment: Code(s): R41.3 - Other amnesia Category: Medical Plan: Patient having new onset of memory impairment along with left-sided hand and foot tingling sensation. I did discuss I was concerned with the these symptoms. She is neurovascularly intact no neurological deficit noted on exam today. Plan to obtain stat CAT scan as her symptoms have been worsening over the last 3 days. I did discuss patient should be seen in the ED given her symptoms however she is declining today. I reviewed extensively red flag symptoms and when to present for re-evaluation. She is to have blood work done prior to her CAT scan and plan to follow up once results are available. (2) Numbness of left hand: Code(s): R20.0 - Anesthesia of skin Category: Medical Plan: See above (3) Numbness of left foot: Code(s): R20.0 - Anesthesia of skin Category: Medical Plan: See above (4) Pounding heartbeat: Code(s): R00.2 - Palpitations Category: Medical Plan: For pounding heartbeat plan to obtain labs and EKG today. We will also order for holter monitor for further evaluation as symptoms are random and episodic. (5) Night sweats: Code(s): R61 - Generalized hyperhidrosis Category: Medical Plan: PLan to obtain blood work and CXR for further evaluation. I did discuss I was concerned of these symptoms and given lack of other symptoms low suspicion for true fever or infection at this time. Patient has been monitoring her temperature at home has not had a fever. Plan For the patient's neurologic symptoms, including paresthesia and palpitations, a stat CT scan is ordered to evaluate intracranial pathology. Given no recent trauma, immediate imaging at the ER is advised should symptoms exacerbate, particularly headaches or neurological deficits. Blood work, including renal function, is planned prior to the CT scan to ensure safety with contrast use. Considering her night sweats, a chest X-ray and blood work is ordered. Blood labs and EKG are scheduled to provide comprehensive diagnostic insight. If her condition deteriorates, emergency medical evaluation is advised. I did recommend the ED today as her symptoms are concerning however patient is refusing and would like to do outpatient workup first. I did review in detail and extensively with patient when to present for urgent evaluation. This note was constructed using voice recognition software. While every effort has been made to ensure accuracy and azure principal solution specialist, still areas may have been included sometimes these areas may affect the content or meeting of the given symptoms. Total time spent caring for the patient today was 20 minutes. This includes time spent before the visit reviewing the chart, time spent during the visit, and time spent after the visit and documentation. Patient was informed and verbally consented to the use of an ambient scribe for clinic note documentation during this visit. Orders: Orders Erythrocyte Sedimentation Rate Today R20.0 - Anesthesia of skin C Reactive Protein Today R20.0 - Anesthesia of skin Complete Blood Count Auto Diff Today R31.29 - Other microscopic hematuria, Z00.00 - Encounter for general adult medical examination without abnormal findings ECG 3 day holter monitor Today R00.2 - Palpitations CT head/brain wo/w IV con Today R20.0 - Anesthesia of skin, R41.3 - Other amnesia Comprehensive Met. Panel Today R20.0 - Anesthesia of skin, Z00.00 - Encounter for general adult medical examination without abnormal findings ECG 12 lead EKG Today R00.2 - Palpitations XR chest 2V Today R61 - Generalized hyperhidrosis
[2025-03-09 11:23] VITALS: BP 88/58; PULSE 47; O2SAT 98; BMI 25.1
[2025-03-09 11:55] VITALS: BP 110/60; PULSE 54
--- OUTSIDE RECORDS SUMMARY | 2025-03-09 12:17 | XMS_ITS | Patient Health Record ---
Author Organization [facility] Address [address] [place] [id number] Care Team Providers Care Medical Leader Name Role Phone Ronak Rico MD Primary Care Provider Remberto Nj Unavailable [phone] Allergies No Known Allergies Reason For Referral [...] Problem Status W/U Status Risk Notes Problem [id number] Encounter for screening for malignant neoplasm of colon (Z12.11) Active confirmed Problem 588850110 History of adenomatous polyp of colon (Z86.010) Active confirmed Problem 407238953 Abdominal bloati ng (R14.0) Active confirmed Problem Screening for malignant neoplasm of rectum (161554704) Encounter for screening for malignant neoplasm of rectum (Z12.12) Active confirmed Problem 559581951 Gastroesophageal reflux disease without esophagitis (K21.9) Active confirmed Problem 471599575 Barretts esophag us without dysplasia (K22.70) Active confirmed Problem 99040090 Constipation, unspecified constipation type (K59.00) Active confirmed Problem White esophagus (269927213) White esophagus (K22.70) Active confirmed Problem Esophageal reflux finding (608413889) Gastroesophageal reflux (K21.9) Active confirmed Problem 306276225 Irritable bowel syndrome with constipation (K58.1) Active confirmed Problem Diverticulosis of colon (543923789) Diverticulosis of colon (K57.30) Active confirmed Vital Signs Temperature 97.7 degrees Fahrenheit 03/24/2024 Blood pressure diastolic 00 mm Hg 03/24/2024 Height 64 in 03/24/2024 Blood pressure systolic 000 mm Hg 03/24/2024 Weight 153 lb 2 oz lbs 03/24/2024 BMI 26.28 kg/m2 03/24/2024 Encounters Encounter Location Date Provider Diagnosis [facility] [address] [place] [id number] 03/24/2024 Remberto Marte Irritable bowel synd mk with constipation K58.1 ; History of adenomatous polyp of colon Z86.010 ; Gastroesophageal reflux disease without esophagitis K21.9 ; Barretts esophagus without dysplasia K22.70 ; Abdominal bloating R14.0 and Constipation, unspecified constipation type K59.00 [facility] [address] [place] [id number] 08/09/2024 Remberto Marte Assessments Encounter Date Diagnosis [...] Insured Coverage Start Date Coverage End Date [facility] [address] Attn Claims NANCY Mcgovern [id number] ESTHER PAN Self - patient is the [...] tu bular adenoma removed in 2006 at [facility], and a small TA removed in 04/2011 Denies AK,DM,CVA,Lung disease,renal dise ase Depression Positive PPD, but [...]
== END 2025-03-09 12:17 | disposition home or self-care (01) ==
LOC: HO.HMCH 11:20
PROVIDERS: PCP Internal Medicine
DX: R41.3 Other amnesia (principal); R20.0 Anesthesia of skin; R00.2 Palpitations; R61 Generalized hyperhidrosis

== ENCOUNTER → 2025-03-09 12:43 | Outpatient (BNV) | payer MEDICARE, SELFPAY | PROVIDERS: Visit Provider Internal Medicine | DX: R00.1 Bradycardia, unspecified (principal) | CPT/HCPCS: 93010 ==

== ENCOUNTER 2025-03-11 08:23 | Outpatient (REF) | payer MEDICARE, SELFPAY ==
--- NOTE | ~2025-03-11 | CT_ITS ---
EXAMINATION: CT HEAD WITHOUT CONTRAST CLINICAL INFORMATION: Anesthesia of skin COMPARISON: None available. TECHNIQUE: Contiguous axial imaging was performed from the skull base to vertex without intravenous administration of contrast. This CT examination was performed using dose optimization techniques as appropriate, variously including the following: *Automated exposure control *Adjustment of mA and/or kV according to patient size (this includes techniques or standardized protocols for targeted exams where dose is matched to indication/reason for exam; i.e. extremities or head) *Use of iterative reconstruction technique FINDINGS: There is no acute intra-axial, extra-axial bleed, masses or midline shift. There is no acute infarction evolution. There is no edema. There is mild not enlarged. The nolan to white matter differentiation is maintained normal. The lateral ventricles are asymmetrical but normal size. Bone windows reveal no calvarial abnormality. Bilateral paranasal sinuses and mastoid air cells are well-aerated. CT/CT head/brain wo IV con IMPRESSION: No acute intracranial process seen. Electronically signed by: Fco Verma MD 03/11/2025 09:08 AM EDT
--- OUTSIDE RECORDS SUMMARY | 2025-03-11 08:29 | XMS_ITS | Patient Health Record ---
Author Organization [facility] Address [address] [place] [phone] Care Team Providers Care Rn Float Name Role Phone Ronak Rico MD Primary Care Provider Remberto Nj Unavailable [phone] Allergies No Known Allergies Reason For Referral [...] Problem Status W/U Status Risk Notes Problem 638804952 Encounter for screening for malignant neoplasm of colon (Z12.11) Active confirmed Problem 545188622 History of adenomatous polyp of colon (Z86.010) Active confirmed Problem 640947453 Abdominal bloati ng (R14.0) Active confirmed Problem Screening for malignant neoplasm of rectum (208316949) Encounter for screening for malignant neoplasm of rectum (Z12.12) Active confirmed Problem 436153142 Gastroesophageal reflux disease without esophagitis (K21.9) Active confirmed Problem 949808493 Barretts esophag us without dysplasia (K22.70) Active confirmed Problem 08833449 Constipation, unspecified constipation type (K59.00) Active confirmed Problem White esophagus (689557394) White esophagus (K22.70) Active confirmed Problem Esophageal reflux finding (602764467) Gastroesophageal reflux (K21.9) Active confirmed Problem 016424820 Irritable bowel syndrome with constipation (K58.1) Active confirmed Problem Diverticulosis of colon (688874515) Diverticulosis of colon (K57.30) Active confirmed Vital Signs Temperature 97.7 degrees Fahrenheit 03/24/2024 Blood pressure diastolic 00 mm Hg 03/24/2024 Height 64 in 03/24/2024 Blood pressure systolic 000 mm Hg 03/24/2024 Weight 153 lb 2 oz lbs 03/24/2024 BMI 26.28 kg/m2 03/24/2024 Encounters Encounter Location Date Provider Diagnosis [facility] [address] [place] [phone] 03/24/2024 Remberto Marte Irritable bowel synd mk with constipation K58.1 ; History of adenomatous polyp of colon Z86.010 ; Gastroesophageal reflux disease without esophagitis K21.9 ; Barretts esophagus without dysplasia K22.70 ; Abdominal bloating R14.0 and Constipation, unspecified constipation type K59.00 [facility] [address] [place] [phone] 08/09/2024 Remberto Marte Assessments Encounter Date Diagnosis [...] Insured Coverage Start Date Coverage End Date [facility] [address] Attn Claims NNACY Mcgovern [id number] ESTHER PAN Self - patient is the [...] tu bular adenoma removed [place] [address] [facility], and a small TA removed in 04/2011 Denies ID,DM,CVA,Lung disease,renal dise ase Depression Positive PPD, but [...]
== END 2025-03-11 08:24 | disposition home or self-care (01) ==
LOC: HO.CT 08:23
DX: R20.0 Anesthesia of skin (principal); R41.3 Other amnesia
CPT/HCPCS: 70450

== ENCOUNTER → 2025-03-11 08:23 | Outpatient (BNV) | payer MEDICARE, SELFPAY | PROVIDERS: Visit Provider Radiology Diagnostic Radiology | DX: R20.0 Anesthesia of skin (principal) | CPT/HCPCS: 70450 ==

== ENCOUNTER 2025-03-14 14:03 | Outpatient (AMB) | payer MEDICARE, SELFPAY ==
--- NOTE | 2025-03-14 14:22 | A.OFFVIS_ITS ---
Vital Signs 03/14/25 14:23 Height 5 ft 6 in Weight 154 lb BMI 24.9 BP 106/70 Blood Pressure Location Rt brachial Position Sitting Intake Visit Reasons: INP-Anesthesia of the skin Intake Note: patient referred fo9r headaches,numbness and tingling of toes and hands and right side of body tremors Allergies No Known Allergies [No Known Allergies*] Allergy (Verified 03/14/25 14:22) Medication List - Last Reconciled 03/14/25 by Sangeeta Burroughs MD calcium carbonate-vitamin D3 600 mg-20 mcg (800 unit) (Caltrate with Vitamin D3) 1 tab PO DAILY dicyclomine 10 mg PO BID PRN duloxetine 60 mg PO DAILY mecobalamin (vitamin B12) mcg PO melatonin 3 mg PO BEDTIME multivitamin 1 tab PO DAILY triamcinolone acetonide 0.1% 1 appl topical BID HPI Comments Details: 64y/o Right handed female comes for evaluation of left sided tremors, numbness in left fingers and toes , abnormal sensations etc . All the above symptoms are only at night when she is trying to sleep . she describes as restless legs - says her legs twitch involuntarily . It started about 1 month ago.and has trouble falling asleep and staying asleep. she wakes up with rj leg discomfort. she has similar symptoms if she sits for a long time. she has occasional snoring and is very fatigued during daytime. she also reports cognitive issues for past 6 mths - reports word finding difficulty , misplaces things, feels foggy etc.she forgets conversations. she has chronic back pain and neck pain.- was told thatt she has a ruptured sic many years ago. she has occasional shooting pain. FORMERLY [facility], [facility] Medical History Osteoarthritis, hand Anxiety IBS (irritable bowel syndrome) Depression White esophagus GERD (gastroesophageal reflux disease) Polyarthralgia Surgical History H/O esophagogastroduodenoscopy H/O colonoscopy History of tonsillectomy History of unilateral oophorectomy Family History Mother No problems noted. Father No problems noted. 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 Cognitive needs: No Hearing needs: No Vision needs: Yes Physical Exam Vital Signs: Last Vital Signs BP 106/70 03/14/25 14:23 BMI result Body Mass Index 24.9 Const General: cooperative, healthy appearing and comfortable Nutritional Appearance: average body habitus Orientation/consciousness: patient oriented x3 Neuro Other: Neck tightness Tenderness in right splenius General: patient oriented x3, gait normal, tone normal, moves all extremities and no focal motor deficits Cranial nerves: Yes Facial sensation intact/muscles of mastication intact, Yes Bilaterally intact EOM present, Yes Nystagmus not present, Yes Normal facial strength present, Yes Midline tongue present, Yes Symmetric palate elevation present and Yes Ability to bilaterally elevate shoulders present Cognition (Neuro): normal cognition Gait exam (Neuro): Normal gait present Motor exam (neuro): 5/5 motor strength present throughout and Normal motor muscle tone present throughout Deep tendon reflexes (DTR's): Right triceps reflex intensity grade: 1+, Left triceps reflex intensity grade: 1+, Rt Biceps (C5, C6): 1+, Left biceps reflex intensity grade: 1+, Right brachioradialis reflex intensity grade: 1+, Left b rachioradialis reflex intensity grade: 1+, Right patellar reflex intensity grade: 1+ and Left patellar reflex intensity grade: 1+ Coordination: [id number] test normal Orientation What is the (year) (season) (date) (day) (month)?: year, season, date, day and month Where are we (state) (county) (town or city) (hospital) (floor)?: state, town or city, hospital/clinic and floor Registration Name of 3 unrelated objects clearly and slowly, then ask patient to repeat all 3 of them. (1st repeat determines score. Make sure they can repeat all three): object 1, object 2 and object 3 Attention & Calculation (CHOOSE ONE) Spell WORLD backwards (DLROW): 5 letters Recall Ask patient to repeat the 3 items from question #3.: object 1 and object 3 Language Show patient a wristwatch & ask what it is. Repeat for pencil.: watch and pencil Ask the patient to repeat the phrase 'No ifs, ands, or buts' after you.: correct Ask the patient to 'take a piece of paper with their right hand' 'fold paper in half' 'place paper on floor': take paper in right hand, fold paper in half and place paper on floor Print the sentence 'CLOSE YOUR EYES' on a piece. If patient actually closes eyes then score.: followed written direction Give patient a blank piece of paper & ask to write a sentence. Score if it contains a noun & verb.: sentence contains subject and verb Ask patient to copy figure of intersecting pentagons exactly. Score if all 10 angles & 2 intersects are included.: all 10 angles present & 2 are intersected Score Score: 28 Results Reviewed Results Reviewed: Lumbar X ray 02/2024 Moderate degenerative changes in the first carpometacarpal joint. 2. Facet arthritis in the lower lumbar spine. 3. Progression of spondylosis with moderate loss of disc space height at L4-L5. Grade 1 anterolisthesis of L4 on L5. Assessment & Plan Assessment & Plan (1) Neck pain: Comment: spondylosis ? Code(s): M54.2 - Cervicalgia Category: Medical (2) Periodic limb movement disorder: Comment: with restless legs syndrome Code(s): G47.61 - Periodic limb movement disorder Category: Medical (3) Hypersomnia: Code(s): G47.10 - Hypersomnia, unspecified Category: Medical (4) Snoring: Code(s): R06.83 - Snoring Category: Medical (5) Numbness of left hand: Code(s): R20.0 - Anesthesia of skin Category: Medical (6) Numbness of left foot: Code(s): R20.0 - Anesthesia of skin Category: Medical (7) Memory impairment: Code(s): R41.3 - Other amnesia Category: Medical Plan I will trial her on gabapentin 300mg qhs for RLS Sleep study for sleep apnea and PLMD Check labs- B 12 TSH CBC CMP Ferritin Head CT reviewed C spine X ray - will consider MRI Orders: Orders XR cervical spine 3V Today M54.2 - Cervicalgia TSH reflex Free T4 Today G47.61 - Periodic limb movement disorder, M54.2 - Cervicalgia, R41.3 - Other amnesia Vitamin B12 and Folate Today G47.61 - Periodic limb movement disorder, M54.2 - Cervicalgia, R41.3 - Other amnesia Comprehensive Met. Panel Today G47.61 - Periodic limb movement disorder, M54.2 - Cervicalgia, R41.3 - Other amnesia Complete Blood Count Auto Diff Today G47.61 - Periodic limb movement disorder, M54.2 - Cervicalgia, R41.3 - Other amnesia Ferritin Today G47.61 - Periodic limb movement disorder, M54.2 - Cervicalgia, R41.3 - Other amnesia Erythrocyte Sedimentation Rate Today G47.61 - Periodic limb movement disorder, M54.2 - Cervicalgia, R41.3 - Other amnesia RT PSG in-lab sleep study Today G47.10 - Hypersomnia, unspecified, G47.61 - Periodic limb movement disorder, R06.83 - Snoring, R41.3 - Other amnesia Vitamin D 25-OH (D2 and D3) Today G47.61 - Periodic limb movement disorder, M54.2 - Cervicalgia, R41.3 - Other amnesia Medications: New gabapentin 300 mg PO BEDTIME 30 caps 6RF Coding Level of Care Code New Pt Level 4 (98365) Complex EM visit Add On G2211 Diagnoses Neck pain M54.2 Periodic limb movement disorder G47.61 Hypersomnia G47.10 Snoring R06.83 Numbness of left hand R20.0 Numbness of left foot R20.0 Memory impairment R41.3
[2025-03-14 14:23] VITALS: BP 106/70; BMI 24.9
--- OUTSIDE RECORDS SUMMARY | 2025-03-14 16:00 | XMS_ITS | Patient Health Record ---
Author Organization [facility] Address [address] [place] [address] Care Team Providers Care Custodial Laborer Name Role Phone Ronak Rico MD Primary Care Provider Remberto Nj Unavailable [phone] Allergies No Known Allergies Reason For Referral [...] Problem Status W/U Status Risk Notes Problem 273742396 Encounter for screening for malignant neoplasm of colon (Z12.11) Active confirmed Problem 388955037 History of adenomatous polyp of colon (Z86.010) Active confirmed Problem 367396690 Abdominal bloati ng (R14.0) Active confirmed Problem Screening for malignant neoplasm of rectum (021107296) Encounter for screening for malignant neoplasm of rectum (Z12.12) Active confirmed Problem 486237365 Gastroesophageal reflux disease without esophagitis (K21.9) Active confirmed Problem 168148602 Barretts esophag us without dysplasia (K22.70) Active confirmed Problem 78870881 Constipation, unspecified constipation type (K59.00) Active confirmed Problem White esophagus (035606547) White esophagus (K22.70) Active confirmed Problem Esophageal reflux finding (585969357) Gastroesophageal reflux (K21.9) Active confirmed Problem 269396916 Irritable bowel syndrome with constipation (K58.1) Active confirmed Problem Diverticulosis of colon (135969618) Diverticulosis of colon (K57.30) Active confirmed Vital Signs Temperature 97.7 degrees Fahrenheit 03/24/2024 Blood pressure diastolic 00 mm Hg 03/24/2024 Height 64 in 03/24/2024 Blood pressure systolic 000 mm Hg 03/24/2024 Weight 153 lb 2 oz lbs 03/24/2024 BMI 26.28 kg/m2 03/24/2024 Encounters Encounter Location Date Provider Diagnosis [facility] [address] [place] [phone] 03/24/2024 Remberto Marte Irritable bowel synd mk with constipation K58.1 ; History of adenomatous polyp of colon Z86.010 ; Gastroesophageal reflux disease without esophagitis K21.9 ; Barretts esophagus without dysplasia K22.70 ; Abdominal bloating R14.0 and Constipation, unspecified constipation type K59.00 [facility] [address] [place] [phone] 08/09/2024 Remberto Marte Assessments Encounter Date Diagnosis [...] Start Date Coverage End Date [facility] [address] Attn Claims NANCY Mcgovern [id number] ESTHER PAN Self - patient is the [...] bular adenoma removed [place] [address] [facility], and a small TA removed [...]
== END 2025-03-14 15:01 | disposition home or self-care (01) ==
LOC: HO.HSMS 14:03
PROVIDERS: Visit Provider Psychiatry & Neurology Neurology
DX: M54.2 Cervicalgia (principal); G47.61 Periodic limb movement disorder; G47.10 Hypersomnia, unspecified; R06.83 Snoring; R20.0 Anesthesia of skin; R41.3 Other amnesia
CPT/HCPCS: 99204; G2211

== ENCOUNTER 2025-03-14 14:03 | Outpatient (REF) | payer MEDICARE, SELFPAY ==
--- NOTE | ~2025-03-14 | XR_ITS ---
EXAMINATION: XR CERVICAL SPINE CLINICAL INFORMATION: M54.2 - Cervicalgia COMPARISON: None available. TECHNIQUE: 3 views of the cervical spine were obtained. FINDINGS: There is straightening of the cervical lordosis. There is no prevertebral soft tissue swelling. C2-3: Unremarkable. The base of dens is obscured by superimposed teeth. C3-4: Unremarkable C4-5: There is subtle anterolisthesis and subtle disc space narrowing. C5-6: There is mild to moderate disc space narrowing and endplate osteophytes with subtle retrolisthesis. C6-7: There is mild to moderate disc space narrowing and posterior osteophytes. C7-T1: Unremarkable XR/XR cervical spine 3V IMPRESSION: There is straightening of the expected cervical lordosis. This can be idiopathic, but can also be related to degenerative change, muscle spasm, or posterior soft tissue injury. Degenerative disc disease is most pronounced at C5-6 and C6-7. Electronically signed by: Eron Kim MD 03/14/2025 06:29 PM EDT
[2025-03-14 16:10] LABS: MANUAL DIFF FLAG NO
[2025-03-14 17:08] LABS: Basophils Absolute Auto 0.1 X10*3/uL (0.0-0.2); Eosinophils Absolute Auto 0.2 X10*3/uL (0.0-0.4); Eosinophils Percent Auto 1.9 % (0-4); Hematocrit 44.4 % (37.0-47.0); Imm Gran Abs Auto 0.02 X10*3/uL (0.00-0.03); Imm Gran Pct Auto 0.3 % (0.0-0.4); Lymphocytes Absolute Auto 3.2 X10*3/uL (1.2-4.9); Lymphocytes Percent Auto 41.9 % (20-40); Mean Corpuscular HGB Conc 31.5 g/dl (31.0-35.0); Mean Corpuscular Hemoglobin 26.3 pg (27.0-33.0); Mean Corpuscular Volume 83.5 fL (80.0-98.0); Mean Platelet Volume 10.1 fL (9.4-12.3); Monocytes Absolute Auto 0.7 X10*3/uL (0.1-1.2); Monocytes Percent Auto 8.7 % (2-11); Neutrophils Absolute Auto 3.6 x10*3/uL (2.0-8.3); Neutrophils Percent Auto 46.2 % (45-73); Platelet Count 217 X10*3/uL (160-400); Red Blood Count 5.32 X10*6/uL (4.20-5.50); Red Cell Distribution Width 14.2 % (11.0-16.0); White Blood Count 7.7 X10*3/uL (4.8-10.8)
[2025-03-14 17:38] LABS: Alanine Aminotransferase 15 U/L (0-31); Albumin Level 4.4 g/dL (3.5-5.0); Alkaline Phosphatase 70 U/L (39-117); Anion Gap 11 (12-20); Aspartate Amino Transferase 21 U/L (5-31); Bilirubin Total 0.7 mg/dL (0.0-1.0); Blood Urea Nitrogen 19 mg/dL (9-16); Calcium 10.1 mg/dL (8.4-10.2); Carbon Dioxide 27 mmol/L (22-29); Chloride 109 mmol/L (96-108); Estimated Glomerular Filt Rate 46; Glucose Random 74 mg/dL (60-115); Potassium 4.5 mmol/L (3.3-5.1); Sodium 142 mmol/L (135-145); Total Protein 7.3 g/dL (6.5-8.0)
[2025-03-14 17:48] LABS: Ferritin 42 ng/mL (10-250); TSH reflex Free T4 0.51 uIU/mL (0.32-4.0)
[2025-03-14 17:59] LABS: Erythrocyte Sedimentation Rate 9 MM/HR (0-20)
[2025-03-14 18:04] LABS: Folate 13.5 ng/mL (> or = 4.0); Vitamin B12 935 pg/mL (200-900)
[2025-03-19 17:33] LABS: Vitamin D 25-OH, D2 <4 ng/mL; Vitamin D 25-OH, D3 42 ng/mL; Vitamin D 25-OH, Total 42 ng/mL (30-100)
== END 2025-03-14 14:04 | disposition home or self-care (01) ==
LOC: HO.XRAY 14:03
PROVIDERS: Visit Provider Psychiatry & Neurology Neurology
DX: G47.61 Periodic limb movement disorder (principal); R41.3 Other amnesia; M54.2 Cervicalgia; G47.10 Hypersomnia, unspecified; R06.83 Snoring; R20.0 Anesthesia of skin
CPT/HCPCS: 36415; 72040; 80053; 82306; 82607; 82728; 82746; 84443; 85025; 85652; 99202

== ENCOUNTER → 2025-03-14 16:06 | Outpatient (BNV) | payer MEDICARE, SELFPAY | PROVIDERS: Visit Provider Radiology Diagnostic Radiology | DX: M50.322 Other cervical disc degeneration at C5-C6 level (principal); M50.323 Other cervical disc degeneration at C6-C7 level | CPT/HCPCS: 72040 ==

== ENCOUNTER → 2025-03-18 09:24 | Outpatient (REF) | payer MEDICARE, SELFPAY ==
--- NOTE | ~2025-03-18 | XR_ITS ---
EXAMINATION: XR CHEST CLINICAL INFORMATION: R61 - Generalized hyperhidrosis COMPARISON: None available. TECHNIQUE: 2 views of the chest were obtained. FINDINGS: Monitoring device overlying the left suprahilar region. The cardiac, hilar, and mediastinal contours are normal. The lungs are clear bilaterally. There is no pneumothorax or pleural effusion. There is no focal osseous or soft tissue abnormality. XR/XR chest 2V IMPRESSION: No active pulmonary disease. Electronically signed by: Raul Rojo MD 03/18/2025 10:17 AM EDT
--- NOTE | 2025-03-18 09:32 | HM_ITS ---
* Total monitoring time 3 days. * Underlying rhythm is sinus with an average rate of 55/Min. About 80% of the time, rate < 60/Min. * Rare supraventricular ectopy. * No significant pauses or high-grade AV blocks. * Patient marker used once in association with sinus rhythm. * Symptom of heart pounding, sweating/confused in patient diary correlates with sinus rhythm. MTDD
--- OUTSIDE RECORDS SUMMARY | 2025-03-18 09:50 | XMS_ITS | Patient Health Record ---
Author Organization [facility] Address [address] [place] [phone] Care Team Providers Care Poultry Tender Name Role Phone Ronak Rico MD Primary Care Provider Remberto Nj Unavailable [phone] Allergies No Known Allergies Reason For Referral [...] Problem Status W/U Status Risk Notes Problem 004399140 Encounter for screening for malignant neoplasm of colon (Z12.11) Active confirmed Problem 335506685 History of adenomatous polyp of colon (Z86.010) Active confirmed Problem 484287417 Abdominal bloati ng (R14.0) Active confirmed Problem Screening for malignant neoplasm of rectum (195342498) Encounter for screening for malignant neoplasm of rectum (Z12.12) Active confirmed Problem 146097596 Gastroesophageal reflux disease without esophagitis (K21.9) Active confirmed Problem 395607324 Barretts esophag us without dysplasia (K22.70) Active confirmed Problem 60240215 Constipation, unspecified constipation type (K59.00) Active confirmed Problem White esophagus (575327787) White esophagus (K22.70) Active confirmed Problem Esophageal reflux finding (698507334) Gastroesophageal reflux (K21.9) Active confirmed Problem 801122598 Irritable bowel syndrome with constipation (K58.1) Active confirmed Problem Diverticulosis of colon (316495460) Diverticulosis of colon (K57.30) Active confirmed Vital Signs Temperature 97.7 degrees Fahrenheit 03/24/2024 Blood pressure diastolic 00 mm Hg 03/24/2024 Height 64 in 03/24/2024 Blood pressure systolic 000 mm Hg 03/24/2024 Weight 153 lb 2 oz lbs 03/24/2024 BMI 26.28 kg/m2 03/24/2024 Encounters Encounter Location Date Provider Diagnosis [facility] [address] [place] [phone] 03/24/2024 Remberto Marte Irritable bowel synd mk with constipation K58.1 ; History of adenomatous polyp of colon Z86.010 ; Gastroesophageal reflux disease without esophagitis K21.9 ; Barretts esophagus without dysplasia K22.70 ; Abdominal bloating R14.0 and Constipation, unspecified constipation type K59.00 [facility] [address] [place] [phone] 08/09/2024 Remberto Marte Assessments Encounter Date Diagnosis [...] again for allowing me to participate in Esthre's care. I shall continue to keep you advised of her progress. Plan Of Treatment Future Test Test Name Order Date UPPER GI ENDOSCOPY 02/09/2015 UPPER GI ENDOSCOPY 01/08/2017 COLONOSCOPY 01/08/2017 UPPER GI ENDOSCOPY 08/20/2022 COLONOSCOPY 08/20/2022 Insurance Providers Payer Name Payer Address Payer Phone Subscriber Number Group Number Insured Name Patient Relationship to Insured Coverage Start Date Coverage End Date [facility] [address] Attn Claims NANCY Mcgovern [id number] ESTHER PAN Self - patient is the [...] tu bular adenoma removed in 2006 at [facility], and a small TA removed in 04/2011 [...]
== END ==
LOC: HO.CARD 09:24
DX: R61 Generalized hyperhidrosis (principal); R00.2 Palpitations
CPT/HCPCS: 71046; 93242

== ENCOUNTER → 2025-03-18 09:32 | Outpatient (BNV) | payer MEDICARE, SELFPAY | PROVIDERS: Visit Provider Internal Medicine | DX: I47.10 Supraventricular tachycardia, unspecified (principal) | CPT/HCPCS: 93244 ==

== ENCOUNTER → 2025-03-18 09:56 | Outpatient (BNV) | payer MEDICARE, SELFPAY | PROVIDERS: Visit Provider Radiology Diagnostic Radiology | DX: R61 Generalized hyperhidrosis (principal) | CPT/HCPCS: 71046 ==

== ENCOUNTER → 2025-03-22 19:30 | Outpatient (BNV) | payer MEDICARE, SELFPAY | PROVIDERS: Visit Provider Psychiatry & Neurology Neurology | DX: G47.10 Hypersomnia, unspecified (principal) | CPT/HCPCS: 95810 ==

== ENCOUNTER → 2025-03-22 19:30 | Outpatient (REF) | payer MEDICARE, SELFPAY ==
--- OUTSIDE RECORDS SUMMARY | 2025-03-22 21:38 | XMS_ITS | Patient Health Record ---
Author Organization [facility] Address [address] [place] [phone] Care Team Providers Care Medicare Insurance Specialist Name Role Phone Ronak Rico MD Primary Care Provider Remberto Nj Unavailable [phone] Allergies No Known Allergies Reason For Referral [...] Problem Status W/U Status Risk Notes Problem 694531186 Encounter for screening for malignant neoplasm of colon (Z12.11) Active confirmed Problem 492070731 History of adenomatous polyp of colon (Z86.010) Active confirmed Problem 191694426 Abdominal bloati ng (R14.0) Active confirmed Problem Screening for malignant neoplasm of rectum (020787013) Encounter for screening for malignant neoplasm of rectum (Z12.12) Active confirmed Problem 647632539 Gastroesophageal reflux disease without esophagitis (K21.9) Active confirmed Problem 533854134 Barretts esophag us without dysplasia (K22.70) Active confirmed Problem 04549010 Constipation, unspecified constipation type (K59.00) Active confirmed Problem White esophagus (657148066) White esophagus (K22.70) Active confirmed Problem Esophageal reflux finding (632925277) Gastroesophageal reflux (K21.9) Active confirmed Problem 038435511 Irritable bowel syndrome with constipation (K58.1) Active confirmed Problem Diverticulosis of colon (290183575) Diverticulosis of colon (K57.30) Active confirmed Vital Signs Temperature 97.7 degrees Fahrenheit 03/24/2024 Blood pressure diastolic 00 mm Hg 03/24/2024 Height 64 in 03/24/2024 Blood pressure systolic 000 mm Hg 03/24/2024 Weight 153 lb 2 oz lbs 03/24/2024 BMI 26.28 kg/m2 03/24/2024 Encounters Encounter Location Date Provider Diagnosis [facility] [address] [place] [phone] 03/24/2024 Remberto Marte Irritable bowel synd mk with constipation K58.1 ; History of adenomatous polyp of colon Z86.010 ; Gastroesophageal reflux disease without esophagitis K21.9 ; Barretts esophagus without dysplasia K22.70 ; Abdominal bloating R14.0 and Constipation, unspecified constipation type K59.00 [facility] [address] [place] [phone] 08/09/2024 Remberto Marte Assessments Encounter Date Diagnosis [...] Insured Coverage Start Date Coverage End Date [facility] [address] Attn Claims NANCY Mcgovern [id number] ESTHER PAN Self - patient is the [...] tu bular adenoma removed in 2006 at [facility], and a small TA removed in 04/2011 Denies [place],DM,CVA,Lung disease,renal dise ase Depression Positive PPD, but [...]
== END ==
LOC: HO.SL 19:30
PROVIDERS: Visit Provider Psychiatry & Neurology Neurology
DX: G47.10 Hypersomnia, unspecified (principal); G47.61 Periodic limb movement disorder; R06.83 Snoring
CPT/HCPCS: 95810

== ENCOUNTER 2025-09-22 09:04 | Outpatient (REF) | payer MEDICARE, SELFPAY ==
--- OUTSIDE RECORDS SUMMARY | 2024-05-19 10:20 | XMS_ITS ---
Author Organization [facility] Address [address] [place] [phone] Care Team Providers Care Informatics Developer Name Role Phone Jacky GILMAN, Ronak Primary Care Provider Remberto Nj [phone] REASON FOR VISIT trouble with bowel movements since colonoscopy Encounters Encounter Location Date Provider Diagnosis [facility] [address] [place] [phone] 05/19/2024 Remberto Marte Plan Of Treatment No Information Progress Notes * ZOË PAN NDOB:1960 ( 65 yo F)Acc No.[id number]:05/19/2024 Progress Notes Patient: ZOË RUIZ Provider: Adali Marte MD :1960 A ge:64 Y S ex:Female Date:05/19/2024 Address:[address] [place], [place] [id number] Pcp:Ronak Rico MD Subjective: * Chief Complaints: * T rouble with bowel movements since colonoscopy * The named appointment provid er may or may not be the originator of this progress note, and it is not deemed complete until electronically signed by the appointment provider. Sign off status: Pending * Provider: Adali Marte MD Date: 0 05/19/2024 Generated for Damaris brown/Paola/Quirinosmitting on: 1 11/23/2024 10:11 AM EST
[2025-09-22 10:06] LABS: Anion Gap 9 (12-20); Blood Urea Nitrogen 21 mg/dL (9-16); Calcium 9.2 mg/dL (8.4-10.2); Carbon Dioxide 27 mmol/L (22-29); Chloride 111 mmol/L (96-108); Cholesterol 174 mg/dL (<200); Estimated Glomerular Filt Rate 45; HDL Cholesterol 43 mg/dL (>40); Potassium 4.8 mmol/L (3.3-5.1); Sodium 142 mmol/L (135-145); Triglycerides 114 mg/dL (<150)
--- OUTSIDE RECORDS SUMMARY | 2025-09-22 10:11 | XMS_ITS | Patient Health Record ---
Author Organization [facility] Address [address] [place] [phone] Care Team Providers Care Perioperative Educator Name Role Phone Ronak Rico MD Primary Care Provider Remberto Nj Unavailable [phone] Allergies No Known Allergies Reason For Referral No Information Medications Medication SIG (Take, Route, Frequency, Duration) Notes Start Date End Date Status LORazepam 1 MG Tablet 11/2 tablet as nee ded Orally Once a day Active Magnesium 500 MG Capsule 1 tablet with a meal Orally Once a day Active Caltrate 600+D Plus 1 1 1 PO QD Active DULoxetine HCl 20 MG Capsule Delayed Release Particles Oral; Duration: 30 Active Omeprazole 20 MG Capsule Delayed Release 1 Orally Every morning; Duration: 30 day(s) 08/20/2022 Not-Taking/PRN Dicyclomine HCl 10 MG Capsule TAKE 1 TO 2 CAPSULES BY MOUTH 4 TIMES DAILY NEEDED FOR ABDOMINAL CRAMPS/BLOATING FOR 30 DAYS; Duration: 30 Active Melatonin 3 MG Tablet 1 tablet at bedtim e as needed Orally Once a day; Duration: 30 day(s) Active Tylenol Arthritis Pain 650mg 1 orally 1 po qd Active Multi Vitamin/Minerals 1 Tablet 1 Orally QD Active Immunizations Vaccine Route Administration Date Status Comme nts Influenza Unknown 09/16/2019 Refused Influenza Unknown 08/20/2022 Refused Influenza Unknown 03/24/2024 Refused Social History Social History Additional Details Category Social Info Options Details Miscellaneous: Marital status: 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 Origi devendra from [facility]-came [place] in 2000 Nonsmoker; no alcohol. Origi devendra from [facility]-came [place] in [place] Nonsmoker; no alcohol. Origi devendra from [facility]-came [place] in [place] Nonsmoker; no alcohol. Origi devendra from [facility]-came [place] in [place] Nonsmoker; no alcohol. Origi devendra from [facility]-came [place] in 2000 Nonsmoker; no alcohol. Origammon ramsay from [facility]-came [place] in 2000 Nonsmoker; no alcohol. Origammon ramsay from [facility]-came [place] in 2000 Problems Problem Type SNOMED Code ICD Code Onset Dates Problem Status W/U Status Risk Notes Problem Screening for malignant neoplasm of colon (113247801) Encounter for screening for malignant neoplasm of colon (Z12.11) Active confirmed Problem History of adenomatous polyp of colon (616990596) History of adenomatous polyp of colon (Z86.010) Active confirmed Problem Abdominal bloating (074715752) Abdominal bloating (R14.0) Active confirmed Problem Screening for malignant neoplasm of rectum (761570954) Encounter for screening for malignant neoplasm of rectum (Z12.12) Active confirmed Problem Gastroesophageal reflux disease without esophagitis (844087767) Gastroesophageal reflux disease without esophagitis (K21.9) Active confirmed Problem White's esophagus (162699552) Barretts esophagus without dysplasia (K22.70) Active confirmed Problem Constipation (21208720) Constipation, unspecified constipation type (K59.00) Active confirmed Problem White esophagus (388741794) White esophagus (K22.70) Active confirmed Problem Esophageal reflux finding (158884319) Gastroesophageal reflux (K21.9) Active confirmed Problem Irritable bowel syndrome characterized by constipation (863482278) Irritable bowel syndrome with constipation (K58.1) Active confirmed Problem Diverticulosis of colon (797540849) Diverticulosis of colon (K57.30) Active confirmed Plan Of Treatment Future Test Test Name Order Date UPPER GI ENDOSCOPY 02/09/2015 UPPER GI ENDOSCOPY 01/08/2017 COLONOSCOPY 01/08/2017 UPPER GI ENDOSCOPY 08/20/2022 COLONOSCOPY 08/20/2022 Insurance Providers Payer Name Payer Address Payer Phone Subscriber Number Group Number Insured Name Patient Relationship to Insured Coverage Start Date Coverage End Date [facility] [address] Attn Claims NANCY Mcgovern [id number] ZOË PAN Self - patient is the [...] bular adenoma removed in 2006 at [facility], and a small TA removed in 04/2011 Denies [place],DM,CVA,Lung disease,renal dise ase Depression Positive PPD, but [...]
--- OUTSIDE RECORDS SUMMARY | 2025-09-22 10:11 | XMS_ITS | Encounter Summary ---
Author Organization [employer] Address [address] [place] [address] [address] [place] [address] Care Team Providers Care Laydown Machine Operator Name Role Phone Unavailable Primary Care Provider Unavailabl e Encounter Details Date Type Department Care Team (Latest Contact Info) Description 02/09/2019 Abstract [facility] CONVERSIONS Dental, Provider, DDS Social [...]
--- OUTSIDE RECORDS SUMMARY | 2025-09-22 10:11 | XMS_ITS | Clinical Summary ---
Author Organization [employer] Address [address] [place] [address] [address] [place] [address] Care Team Providers Care Archivist Economic History Name Role Phone Unavailable Primary Care Provider [...] Use Screening 1971 Hepatitis C Screening 1977 Mammogram 1999 Dental Oral Exam 08/28/2023 02/24/2023, 04/2019, 02/04/2018, Additional history exists Dental Prophylaxis 08/28/2023 02/24/2023, 1 11/24/2018, 02/09/2019, Additional history exists Zoster Vaccines (2 of 2) 05/17/2025 03/22/2025 COVID-19 Vaccine (1 - season) 2025 Influenza Vaccine (#1) 2025 09/22/2018 Dental X-Ray: Full Mouth 02/25/2026 02/24/2023, 07/06 Tobacco Screening 04/04/2026 04/04/2025 Dental X-Ray: Bitewings 04/05/2026 04/04/20 25, 02/24/2023, 02/09/2019, Additional history exists DTaP/Tdap/Td Vaccines (2 - Td or Tdap) 04/03/2028 04/03/2018 RSV Patients and Patients Aged 60 years or older (1 - 1-dose 75+ series) 2034 Pneumococcal Vaccine: 50+ Years Completed 03/22/2025 HIB Vaccines Aged Out No longer eligi [...] patient's age to complete this topic Meningococcal B Vaccine Aged Out No l onger eligible based on patient's age to complete [...] Procedure Name Priority Date/Time Associated Diagnosis Comments BITEWING - SINGLE RADIOGRAPHIC IMAGE Routine 04/04/2025 11:00 AM EDT Recurrent dental caries extending into dentin Open fracture of tooth, initial encounter PROPHYLAXIS - ADULT Routine 02/24/2023 2 :00 [...]
[2025-09-22 11:30] LABS: Reflex LDLD? No
[2025-09-23 22:09] LABS: Immunoglobulin A 358 mg/dL (70-320)
== END 2025-09-22 09:05 ==
LOC: HO.LAB 09:04
PROVIDERS: PCP Student in an Organized Health Care Education/Training Program; Visit Provider Student in an Organized Health Care Education/Training Program
DX: Z01.84 Encounter for antibody response examination (principal); Z13.220 Encounter for screening for lipoid disorders; K90.41 Non-celiac gluten sensitivity; R94.4 Abnormal results of kidney function studies
CPT/HCPCS: 36415; 80048; 80061; 82784; 86364

== ENCOUNTER 2025-10-04 08:59 | Outpatient (AMB) | payer MEDICARE, SELFPAY ==
--- OUTSIDE RECORDS SUMMARY | 2024-05-19 10:20 | XMS_ITS ---
Author Organization [facility] Address [address] [place] [phone] Care Team Providers Care Senior Clinical Data Manager Name Role Phone Jacky GILMAN, Ronak Primary Care Provider Remberto Nj [phone] REASON FOR VISIT trouble with bowel movements since colonoscopy Encounters Encounter Location Date Provider Diagnosis [facility] [address] [place] [phone] 05/19/2024 Remberto Marte Plan Of Treatment No Information Progress Notes * ZOË PAN NDOB:1960 ( 65 yo F)Acc No.[id number]:05/19/2024 Progress Notes Patient: ZOË RUIZ Provider: Adali Marte MD :1960 A ge:64 Y S ex:Female Date:05/19/2024 Address:[address] [place], [place] [id number] Pcp:Ronak Rico MD Subjective: * Chief Complaints: * T rouble with bowel movements since colonoscopy * The named appointment provid er may or may not be the originator of this progress note, and it is not deemed complete until electronically signed by the appointment provider. Sign off status: Pending * Provider: Adali Marte MD Date: 0 05/19/2024 Generated for Damaris brown/Paola/Quirinosmitting on: 11:09 AM EST
--- NOTE | 2025-10-04 09:08 | MHC.PC.OV ---
Vital Signs 10/04/25 09:10 Height 5 ft 6 in Weight 155 lb BMI 25.0 BP 100/68 Blood Pressure Location Lt brachial Position Sitting Respiration 18 Pulse 61 Pulse Source Pulse Oximeter Temp 97.7 F Temp Source Temporal Artery Scan Pulse Oximetry (%) 94 Oxygen Delivery Method Room Air Intake Visit Reasons: Follow Up Toxics Program Officer Required: No Accompanied by: Self / Same As Patient Allergies No Known Allergies (No Known Allergies*) Allergy (Verified 10/04/25 09:13) Medication List - Last Reviewed 10/04/25 by Daja Christensen MA calcium carbonate-vitamin D3 600 mg-20 mcg (800 unit) (Caltrate with Vitamin D3) 1 tab PO DAILY dicyclomine 10 mg PO BID PRN duloxetine 30 mg PO DAILY melatonin 2.5 - 5 mg PO BEDTIME tacrolimus 0.1% (Protopic) 1 appl topical BID 14 days Tobacco use date assessed: 08/12/25 Fall risk assessment: 1 Fall in past year Last assessed Fall Risk: 10/04/25 Dental Screening Dental Screen Date: 08/12/25 HPI Follow Up HPI Details 65 year old female with past medical history of fibromyalgia and osteopenia last seen 08/[address] Dumas coming in for follow up. She was seen by Dr. Dumas for eczema flare and was given Opzelura and referred to dermatology for severe flare. She was also seen by neurology 03/2025 completed sleep study which was normal and sent for cervical XR. Presenting for a follow-up on multiple chronic conditions. Her eczema has been improving; she completed a 14-day course of a topical cream, after which pruritus resolved, leaving only residual brown lou. She notes that flares are triggered by hot water and documented a severe flare with a burning sensation in August. 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 She reports that her memory is getting worse. A head CT scan in March was normal. The patient also complains of an intermittent burning sensation in both feet that awakens her from sleep, noting a recent episode at 4 a.m. She is reluctant to take medications like gabapentin for this symptom. Previous workup included a normal sleep study which did not show evidence of restless legs syndrome. [facility] Medical History Neck pain Hypersomnia Snoring Periodic limb movement disorder Osteoarthritis, hand Anxiety IBS (irritable bowel syndrome) Depression White esophagus GERD (gastroesophageal reflux disease) Polyarthralgia Surgical History H/O esophagogastroduodenoscopy H/O colonoscopy History of tonsillectomy History of unilateral oophorectomy Family History Mother No problems noted. Father No problems noted. 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 Cognitive needs: No Hearing needs: No Vision needs: Yes Questionnaire Thrive Questionnaire Date Thrive assessed: 08/12/25 I am a: Patient What is your living situation today?: I have a steady place to live Within the past 12 months, did the food you bought not last and you didn't have the money to get more?: Never true Within the past 12 months, did you worry whether your food would run out before you got money to buy more?: Never true Do you have trouble paying for medicines?: No Do you have trouble getting transportation to medical appointments?: No Do you have trouble paying your heating and electricity bill?: No Do you have trouble taking care of your child, family member or friend?: Yes Do you have trouble with day-to-day activities such as bathing, preparing meals, shopping, managing finances, etc.?: Yes Are you currently unemployed and looking for a job?: No Are you interested in more education?: No Currently or been in a relationship where the following occur: I choose not to answer THRIVE Score: 0 HEIDI-7 AMB Questionnaire HEIDI-7 Date HEIDI - 7 assessed: 03/09/25 Source: Developed by Drs. Remberto Miles, Nargis Gilmore, Mark Zelaya and colleagues, with an educational odalys from [employer]. Review of Systems Const Denies body aches, Denies chills, Denies fever(s) and Denies poor appetite Eyes Reports no additional complaints ENT Denies dizziness Card Denies chest pain, Denies edema, Denies irregular heart rhythm, Denies lightheadedness and Denies dyspnea Resp Denies cough and Denies dyspnea GI Denies abdominal pain, Denies nausea and Denies vomiting Reports no additional complaints Musc Reports no additional complaints and Denies abnormal gait Skin/Breast Reports system reviewed and no additional complaints, except as documented Neuro Reports as per HPI, Denies abnormal gait and Denies dizziness Psych Reports no additional complaints Physical exam (Primary Care) Vital Signs: Last Vital Signs Temp 97.7 F 10/04/25 09:10 Pulse 61 10/04/25 09:10 Resp 18 10/04/25 09:10 BP 100/68 10/04/25 09:10 Pulse Ox 94 10/04/25 09:10 Oxygen Delivery Method Room Air 10/04/25 09:10 BMI result Body Mass Index 25.0 Tobacco/Smoking Status: Tobacco use Status Tobacco use date assessed 08/12/25 10/04/25 09:12 Patient Tobacco Use Status Former Tobacco user 10/04/25 09:12 e-Cigarette/Vaping Use Never Used 10/04/25 09:12 Thrive Assessment: Date of Thrive Assessment Date Thrive assessed 08/12/25 10/04/25 09:12 Currently or been in a relationship where the following occur: I choose not to answer Const General: cooperative, healthy appearing, comfortable and no acute distress Orientation/consciousness: patient oriented x3 HENMT Head: Yes normocephalic Ears: hearing grossly normal bilaterally General nose exam: Normal external nose present Eyes General: appearance normal, both eyes and all related structures Conjunctivae: conjunctivae normal Neck Neck: Yes full ROM and Yes no lymphadenopathy Resp Effort & Inspection: normal respiratory effort Auscultation: clear to auscultation bilaterally, no crackles, no rales, no rhonchi and no wheezes Cardio Rate: regular rate Rhythm: regular rhythm Skin Other: Eczema resolve General skin exam: no rashes or lesions noted Neuro General: patient oriented x3 Gait exam (Neuro): Normal gait present Extrem General: Yes normal to inspection, Yes full ROM and No edema Psych Affect: normal affect Attitude: cooperative Insight: Good insight present (Psych) Judgement: Good judgement present (Psych) Coding Level of Care Code Est Pt Level 3 (16073) Diagnoses Pounding heartbeat R00.2 Periodic limb movement disorder G47.61 Eczema, unspecified type L30.9 Eczema type: unspecified Numbness and tingling of both feet R20.0; R20.2 Memory impairment R41.3 Assessment & Plan Assessment & Plan (1) Pounding heartbeat: Code(s): R00.2 - Palpitations Category: Medical Plan: Patient had negative Holter monitor and reports symptoms have resolved. (2) Periodic limb movement disorder: Comment: with restless legs syndrome Code(s): G47.61 - Periodic limb movement disorder Category: Medical Plan: Patient had in-lab sleep study that did not reveal any evidence of movement disorder. Continue to follow with Neurology and declining medical management at this time (3) Eczema: Code(s): L30.9 - Dermatitis, unspecified Category: Medical Qualifiers: Eczema type: unspecified Qualified Code(s): L30.9 - Dermatitis, unspecified Plan: The patient's eczema is improving with resolution of pruritus, although residual hyperpigmentation remains. Stress and hot water are noted as potential triggers. A list of dermatology offices will be provided, and she is advised to schedule an appointment for further management. (4) Numbness and tingling of both feet: Code(s): R20.0 - Anesthesia of skin; R20.2 - Paresthesia of skin Category: Medical Plan: The patient experiences intermittent nocturnal burning sensations and numbness in bilateral feet. A sleep study was negative for restless leg syndrome. The plan is to start with a lumbar spine X-ray to assess for nerve impingement. Blood work, including a vitamin B12 level, will also be ordered. The patient wishes to avoid gabapentin at this time, but an EMG will be considered if symptoms worsen or if the X-ray is normal. (5) Memory impairment: Code(s): R41.3 - Other amnesia Category: Medical Plan: The patient reports worsening memory, though her head CT scan from March was normal. It is recommended that she follow up with neurology for further evaluation. Plan This note was constructed using voice recognition software. While every effort has been made to ensure accuracy and rn imaging, still areas may have been included sometimes these areas may affect the content or meeting of the given symptoms. Total time spent caring for the patient today was 20 minutes. This includes time spent before the visit reviewing the chart, time spent during the visit, and time spent after the visit and documentation. Patient was informed and verbally consented to the use of an ambient scribe for clinic note documentation during this visit. Orders: Orders Comprehensive Met. Panel Today R20.0 - Anesthesia of skin, Z00.00 - Encounter for general adult medical examination without abnormal findings XR lumbar spine 2-3V Today R20.0 - Anesthesia of skin, R20.2 - Paresthesia of skin Vitamin B12 and Folate Today R20.0 - Anesthesia of skin Hemoglobin A1c Today R20.0 - Anesthesia of skin
[2025-10-04 09:10] VITALS: BP 100/68; PULSE 61; RESP 18; TEMP 36.5; O2SAT 94; BMI 25.0
--- OUTSIDE RECORDS SUMMARY | 2025-10-04 11:10 | XMS_ITS | Clinical Summary ---
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
--- OUTSIDE RECORDS SUMMARY | 2025-10-04 11:10 | XMS_ITS | Encounter Summary ---
Author Organization [employer] Address [address] [place] [address] [address] [place] [address] Care Team Providers Care Assembler Lay Ups Name Role Phone Unavailable Primary Care Provider Unavailabl e Encounter Details Date Type Department Care Team (Latest Contact Info) Description 02/09/2019 Abstract [facility] CONVERSIONS Dental, Provider, DDS Social History [...]
--- OUTSIDE RECORDS SUMMARY | 2025-10-04 11:10 | XMS_ITS | Patient Health Record ---
Author Organization [facility] [employer] [facility] Address [address] [place] [id number] Care Team Providers Care Earth Science Professor Name Role Phone Ronak Rico MD Primary Care Provider Remberto Nj Unavailable [phone] Allergies No Known Allergies Reason For Referral [...] Notes: Nonsmoker; no alcohol. Origi devendra from [facility]-came to [place] in 2000 Nonsmoker; no alcohol. Origi devendra from [facility]-came [place] in [place] Nonsmoker; no alcohol. Origi devendra from [facility]-came [place] in [place] Nonsmoker; no alcohol. Origi devendra from [facility]came [place] in [place] Nonsmoker; no alcohol. Origi devendra from [facility]-came [place] in [place] Nonsmoker; no alcohol. Origammon ramsay from [facility]-came to [place] in 2000 Nonsmoker; no alcohol. Origammon ramsay from [facility]-came to [place] in 2000 Problems Problem Type SNOMED Code ICD Code Onset Dates Problem Status W/U Status Risk Notes Problem Screening for malignant neoplasm of colon (041721799) Encounter for screening for malignant neoplasm of colon (Z12.11) Active confirmed Problem History of adenomatous polyp of colon (385249712) History of adenomatous polyp of colon (Z86.010) Active confirmed Problem Abdominal bloating (522705088) Abdominal bloating (R14.0) Active confirmed Problem Screening for malignant neoplasm of rectum (465020908) Encounter for screening for malignant neoplasm of rectum (Z12.12) Active confirmed Problem Gastroesophageal reflux disease without esophagitis (579760178) Gastroesophageal reflux disease without esophagitis (K21.9) Active confirmed Problem White's esophagus (646117667) Barretts esophagus without dysplasia (K22.70) Active confirmed Problem Constipation (99639357) Constipation, unspecified constipation type (K59.00) Active confirmed Problem White esophagus (300746154) White esophagus (K22.70) Active confirmed Problem Esophageal reflux finding (255694909) Gastroesophageal reflux (K21.9) Active confirmed Problem Irritable bowel syndrome characterized by constipation (235809457) Irritable bowel syndrome with constipation (K58.1) Active confirmed Problem Diverticulosis of colon (019226447) Diverticulosis of colon (K57.30) Active confirmed Plan Of Treatment Future Test Test Name Order Date UPPER GI ENDOSCOPY 02/09/2015 UPPER GI ENDOSCOPY 01/08/2017 COLONOSCOPY 01/08/2017 UPPER GI ENDOSCOPY 08/20/2022 COLONOSCOPY 08/20/2022 Insurance Providers Payer Name Payer Address Payer Phone Subscriber Number Group Number Insured Name Patient Relationship to Insured Coverage Start Date Coverage End Date [facility] [address] Attn Claims NANCY Mcgovern [id number] ZOË PAN Self - patient is the [...] tu bular adenoma removed in 2006 at [facility], and a small TA removed in 04/2011 Denies IA,DM,CVA,Lung disease,renal dise ase Depression Positive PPD, but [...]
== END 2025-10-04 09:38 | disposition home or self-care (01) ==
PROVIDERS: PCP Student in an Organized Health Care Education/Training Program
DX: R00.2 Palpitations (principal); G47.61 Periodic limb movement disorder; L30.9 Dermatitis, unspecified; R20.0 Anesthesia of skin; R20.2 Paresthesia of skin; R41.3 Other amnesia

== ENCOUNTER → 2025-10-04 08:59 | Outpatient (BNVA) | payer MEDICARE, SELFPAY | PROVIDERS: PCP Student in an Organized Health Care Education/Training Program | DX: R00.2 Palpitations (principal); L30.9 Dermatitis, unspecified; R20.0 Anesthesia of skin; R20.2 Paresthesia of skin; R41.3 Other amnesia; G47.61 Periodic limb movement disorder | CPT/HCPCS: 99212 ==